=== PATIENT | female | born 1990 | race Caucasian/White ===

== ENCOUNTER 2017-01-05 23:55 | Emergency (ER) | payer BC, OTHER ==
[~2017-01-05] VITALS: Ht 152.4 cm; Wt 48.6 kg
[~2017-01-05 23:55] MED LIST: DROS1TAB24 PO; ZLF/50 PO
[2017-01-06 00:10] VITALS: TEMP 37.3; Ht 152.4 cm; Wt 48.6 kg
[2017-01-06] MEDS ORDERED: HYDROCODONE/ACETAMOPHEN 5/325MG TAB PO STA (01:03)
[2017-01-06] MEDS ORDERED: DOXY100C76 PO (01:14)
[2017-01-06] MEDS ORDERED: NORCO 5/325MG HOME PACK PO ONE (01:15)
[2017-01-06] MEDS ORDERED: DOXYCYCLINE HYCLATE 100 MG CAP PO ONE (01:15)
[2017-01-06 01:37] VITALS: BP 125/74; PULSE 74; O2SAT 99
[2017-01-06] MEDS ORDERED: DSY/50 PO (01:39)
--- NOTE | 2017-01-06 03:25 | EMERGENCY ROOM VISIT NOTE ---
History Report prepared by Magnus: Jamal Bradley Under the Supervision of: Dr. Jossue Saldivar M.D. First contact with patient: 00:29 Chief Complaint: INFECTION Stated Complaint: RED SWOLLEN PAIN,THROBBING,WARM,REDNESS WORSE Nursing Triage Summary: pt states had a pimple on chin and popped it, seen dr for it becoming red and swollen and dr told her if it got worse to come in here, tonight she was sleeping and woke and noticed it popped and was bleeding, pain increased and redness and swelling History of Present Illness The patient is a 26 year old female who presents to the Emergency Room with complaints of a spreading infection on her chin that began three days prior to arrival. The patient states that the area on her chin began as a pimple which she popped as she normally would. After popping the pimple it became red and swollen. Her pain is radiating under her neck and into her right jaw. The patient has visited with another physician prior to this visit who gave her Clindamycin and suggested that if it spread any more to come into the emergency department. The patient has been taking this Clindamycin for two days. She does have a history of cellulitis on her foot. Her boyfriend notes having a orozco with MRSA two years ago. She denies LOC, headache, fevers, chills, diaphoresis, visual changes, neck pain, chest pain, breathing difficulties, nausea, vomiting , abdominal pain, back pain, melena, hematochezia, urinary symptoms, numbness, weakness, lymphadenopathy, rash, or other complaints. 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 A total of ten systems were reviewed and were otherwise negative. Past Medical & Surgical Medical Problems: (1) Breech presentation (2) Non reassuring heart tones. Surgical Problems: (1) section Family History Hypertension Seizures Social History Smoking Status: Current Every Day Smoker Alcohol Use: none Drug Use: none Marital Status: in relationship Housing Status: lives with family Occupation Status: employed Current/Historical Medications Scheduled Doxycycline Monohydrate (Monodox), 100 MG PO BID Sertraline HCl (Sertraline HCl), 50 MG PO DAILY Trazodone HCl (Trazodone HCl), 50 MG PO HS Allergies Coded Allergies: Sulfa Drugs (Unverified Allergy, Mild, HIVES, 01/06/17) Tramadol (Verified Allergy, Unknown, GI SYMPTOMS, 01/06/17) Physical Exam Vital Signs Date Time Temp Pulse Resp B/P Pulse Ox O2 Delivery O2 Flow Rate FiO2 01/06/17 01:37 74 16 125/74 99 01/06/17 00:10 37.3 78 18 126/77 99 Room Air Physical Exam GENERAL: Awake, alert, well-appearing, in no distress HENT: Normocephalic, atraumatic. Oropharynx unremarkable. EYES: Normal conjunctiva. Sclera non-icteric. CHIN: There is swelling and induration of the right side of the chin. NECK: Submandibular nodes on the right side. Supple. No nuchal rigidity. FROM. No JVD. RESPIRATORY: Clear to auscultation. CARDIAC: Regular rate, normal rhythm. Extremities warm and well perfused. Pulses equal. ABDOMEN: Soft, non-distended. No tenderness to palpation. No rebound or guarding. No masses. RECTAL: Deferred. MUSCULOSKELETAL: Chest examination reveals no tenderness. The back is symmetrical on inspection without obvious abnormality. There is no CVA tenderness to palpation. No joint edema. NEURO: Normal sensorium. No sensory or motor deficits noted. SKIN: No rash or jaundice noted. Medical Decision & Procedures Medications Administered Medications (Trade) Dose Ordered Sig/Concepcion Route Start Time Stop Time Status Last Admin Dose Admin Acetaminophen/ Hydrocodone Bitart (Cable 5/325mg Home Pack) 1 homepack UD ONCE PO 01/06/17 01:15 01/06/17 01:16 DC 01/06/17 01:30 1 HOMEPACK Acetaminophen/ Hydrocodone Bitart (Cable 5/325 Tab) 1 tab NOW STAT PO 01/06/17 01:03 01/06/17 01:06 DC 01/06/17 01:30 1 TAB Doxycycline Hyclate (Vibramycin Cap) 200 mg ONE ONCE PO 01/06/17 01:15 01/06/17 01:16 DC 01/06/17 01:30 200 MG ED Course 0043: The patient was evaluated in room C4. A complete history and physical exam was performed. 0103: Ordered Acetaminophen 1 tablet PO. 0115: Ordered Doxycycline 200 mg PO, Acetaminophen 1 homepack PO. 0203: I reevaluated the patient. Discussed results and discharge instructions: She verbalized understanding and agreement. The patient is ready for discharge. Medical Decision Prior records reviewed and summarized as above. Triage Nursing notes reviewed and agree them. Additional history obtained from the significant other. He has had significant issues with MRSA that was not sensitive to clindamycin. The patient's history was concerning for swelling and redness of the skin. Differential diagnosis: Etiologies such as cellulitis, abscess, MRSA infection, dermatitis, drug eruption, as well as others were entertained.. Physical examination: The physical examination was consistent with cellulitis ER treatment provided: The patient had a small pustule noted in the area of erythema. This was somewhat indurated. This seemed to be consistent with a large pimple-like abscess. The area was prepped with alcohol and a 19-gauge needle was used to enter the small abscess like cavity and purulent material was expressed with some gentle pressure. I discussed doing this option versus a formal incision and drainage to minimize scarring. The patient was in agreement. I did inform her that she may need to have a formal I and D if this does not work. A moderate amount of purulent fluid was expressed. The appearance could be consistent with MRSA. Oral doxycycline Oral Cable On reassessment the patient felt better. Diagnostics interpreted by me: Culture obtained and sent This appears to be isolated cellulitis with a very small pimple-like abscess. Given her significant other's issues with MRSA that was resistant to clindamycin I suspect that she is dealing with the same. I will switch her to doxycycline as she is allergic to sulfa. She had started to use Bactroban and will continue this. If she worsens in any way she will be back to the Emergency Room By the evaluation outlined above emergent etiologies such as osteomyelitis necrotizing fasciitis, ludwigs angina, deep space infection as well as others were deemed relatively unlikely. The patient was informed about the findings as listed above. All questions were answered and she was pleased with the treatment. Return instructions were outlined and the patient was discharged in stable condition. Outpatient prescription management: Cable home pack Oral doxycycline Stop the clindamycin Referral: The patient was referred back to her primary care physician for follow-up in 2 to 3 days for a recheck of the current condition. The chart was completed utilizing [employer] voice recognition software. Grammatical errors, random word insertions, pronoun errors, and incomplete sentences are an occasional consequence of this system due to software limitations, ambient noise, and hardware issues. Any formal questions or concerns about the content, text, or information contained within the body of this dictation should be directly addressed to the physician for clarification. Impression Primary Impression: Abscess of chin Scribe Attestation The scribe's documentation has been prepared under my direction and personally reviewed by me in its entirety. I confirm that the note above accurately reflects all work, treatment, procedures, and medical decision making performed by me. Departure Information Dispostion Home / Self-Care Prescriptions Doxycycline Monohydrate (Monodox) 100 Mg Cap 100 MG PO BID, #14 CAP Prov: Jossue Saldivar MD 01/06/17 Referrals No Doctor, Assigned (PCP) Forms HOME CARE DOCUMENTATION FORM, IMPORTANT VISIT INFORMATION, WORK / SCHOOL INSTRUCTIONS Patient Instructions My [facility] Additional Instructions Hydrocodone/acetaminophen 5/325mg: Take 1-2 pills every 6 hours as needed for pain. Avoid additional Acetaminophen/Tylenol, alcohol, operating machinery or dangerous equipment, working on ladders or roofs, DRIVING, or situations where being under the influence may be dangerous. Doxycycline 100mg: Take one pill twice daily for seven days for your infection. Take with food, but avoid dairy. Avoid prolonged sun exposure since this medication makes you temporarily more susceptible to sunburns. All antibiotics can cause diarrhea. If this occurs and you feel worse or it does not resolve in 1-2 days follow up with your doctor or return to the Emergency Department as this could be signs of serious underlying problems. Any medication can cause an allergic reaction, stop the pills immediately and return to the ER for rash, hives, breathing difficulties, or swelling. Ibuprofen(Motrin, Advil) may be used for fever or pain. Use 600mg every six hours as needed. Take with food. Avoid using more than 2400mg in a 24 hour period. Do not use 2400mg per day for more than three consecutive days without physician direction. Prolonged inappropriate use can lead to stomach upset or ulcers. (AND/OR) Acetaminophen(Tylenol) may be used for fever or pain. Use 1000mg every six hours as needed. Avoid using more than 4000mg in a 24 hour period. Warm compresses to the affected area 4 times daily for 15-20 minutes. Rest and drink plenty of fluids. Stop the Clindamycin. Continue other current medications. Return to the ER for severe pain, persistent fevers, spreading redness, or any worsening of your condition. Follow up with your primary physician within 2-3 days for a recheck of the current condition.
--- NOTE | 2017-01-08 12:58 | Pharmacy Progress Note ---
ED Pharmacist Culture FollowUp Date of Service: Jan 08, 2017. Chin abscess culture from 01/06/17 is growing MRSA (also sensitive to tetracyclines and clindamycin). The patient had taken clindamycin x 2 days prior to presentation and felt the abscess/cellulitis was worsening, prompting her presentation to the ER. She was discharged with a Rx for Doxycycline 100mg PO BID x 7 days, and she was using Bactroban oint at the time she presented which she was instructed to continue. Based upon sensitivities, no action is required at this time.
== END 2017-01-06 01:35 | disposition home or self-care (01) ==
LOC: C.EDB 23:57 → C.EDC 01-06 01:35
DX: L02.01 Cutaneous abscess of face (principal); Z86.14 Personal history of Methicillin resistant Staphylococcus aureus infection; F17.210 Nicotine dependence, cigarettes, uncomplicated

== ENCOUNTER 2017-08-13 02:12 | Emergency (ER) | payer BC, OTHER ==
[~2017-08-13] VITALS: Ht 152.4 cm; Wt 51.2 kg
[~2017-08-13 02:12] MED LIST changes: -DROS1TAB24 PO; +DSY/50 PO
[2017-08-13 02:16] VITALS: TEMP 36.8; Ht 152.4 cm; Wt 51.2 kg
[2017-08-13] MEDS ORDERED: TRAMADOL HCL 50 MG HOME PACK PO ONE (02:45)
[2017-08-13] MEDS ORDERED: HYDROCORTISONE HC 2.5% CRM 30GM TUBE EXT ONE (02:45)
[2017-08-13] MEDS ORDERED: LIDOCAINE 4% CREAM 15 GM TUBE EXT ONE (02:45)
[2017-08-13] MEDS ORDERED: HYDRAER4 PR (02:47)
[2017-08-13] MEDS ORDERED: LIDO1CRE TOP (02:47)
[2017-08-13 03:00] VITALS: BP 122/68; PULSE 69; O2SAT 98
--- NOTE | 2017-08-13 06:41 | EMERGENCY ROOM VISIT NOTE ---
History First contact with patient: 02:31 Chief Complaint: RECTAL PAIN Stated Complaint: HEMORRHOIDS Nursing Triage Summary: c/o painful hemmorrhoids History of Present Illness The patient is a 27 year old female who presents to the Emergency Room with complaints of painful hemorrhoids over the past 3-4 days. The patient states that she has had hemorrhoids for some time that began after the of her child. She has not had diarrhea or constipation. She has not had fever or chills. She does not have a history of inflammatory bowel disease. She rates her discomfort an 8/10 that worsens with using the bathroom. Review of Systems More than 10 systems were reviewed and otherwise negative with the exception of history of present illness. Past Medical/Surgical History Medical Problems: (1) Breech presentation (2) Non reassuring heart tones. Surgical Problems: (1) section Family History Hypertension Seizures Social History Smoking Status: Current Every Day Smoker Alcohol Use: none Drug Use: none Marital Status: in relationship Housing Status: lives with family Occupation Status: employed Current/Historical Medications Scheduled Hydrocortisone/Pramoxine (Proctofoam Hc), 1 APPL [place] BID Lidocaine (Anecream), 1 APPLN TOP TID Sertraline HCl (Sertraline HCl), 50 MG PO DAILY Trazodone HCl (Trazodone HCl), 50 MG PO HS Physical Exam Vital Signs Date Time Temp Pulse Resp B/P (MAP) Pulse Ox O2 Delivery O2 Flow Rate FiO2 08/13/17 03:00 69 20 122/68 98 08/13/17 02:16 36.8 76 17 124/83 100 Room Air Physical Exam VITALS: Vitals are noted on the nurse's note and reviewed by myself. Vital signs stable. GENERAL: Well-developed, well-nourished, white female, who is in no acute distress and resting comfortably. Patient is cooperative with the examination. HEART: Regular rate and rhythm without murmurs gallops or rubs. LUNGS: Clear to auscultation bilaterally without wheezes, rales or rhonchi. No retractions or accessory muscle use. RECTAL: Examination was performed in the presence of female nurse fractionating still operator. There is an obvious external hemorrhoid along the right perianal area. This does not appear or friable. It is roughly 1.5 x 1 cm in dimension. ABDOMEN: Positive normal bowel sounds x 4. Soft, nontender, without masses or organomegaly. No guarding or rebound tenderness. Medical Decision & Procedures Medications Administered Medications (Trade) Dose Ordered Sig/Concepcion Route Start Time Stop Time Status Last Admin Dose Admin Lidocaine (AneCream 4%) 1 appln NOW ONCE EXT 08/13/17 02:45 08/13/17 02:46 DC 08/13/17 02:59 1 APPLN Hydrocortisone (Proctozone Hc 2.5% Crm) 1 appln NOW ONCE EXT 08/13/17 02:45 08/13/17 02:46 DC 08/13/17 02:59 1 APPLN ED Course Physical exam and history were performed. Nursing notes, EMR, and Medication List were personally reviewed. Patient appears to have an obvious external hemorrhoid on examination. This appears to be the cause of her discomfort. The patient was quite upfront with a past history of opioid abuse and she prefers to avoid opioids. The patient will be given information to follow with general surgeon for the hemorrhoids. I will provide her Anecream and Proctofoam. She was educated on other conservative measures that may help her symptoms. She was otherwise invited back to the ER with any new, worsening, or concerning symptoms. The chart was completed utilizing [employer] Speech Voice Recognition Software. Grammatical errors, random word insertions, pronoun errors, and incomplete sentences are an occasional consequence of this system due to software limitations, ambient noise, and hardware issues. Any formal questions or concerns about the content, text, or information contained within the body of this dictation should be directly addressed to the provider for clarification. . Medical Decision Differential diagnosis includes, but is not limited to: Hemorrhoid, fissure, ulcer, abscess, and others Blood Pressure Screening Patient's blood pressure: Normal blood pressure Impression Primary Impression: Acute hemorrhoid Departure Information Dispostion Home / Self-Care Condition GOOD Prescriptions Hydrocortisone/Pramoxine (Proctofoam Hc) Aer 1 APPL [place] BID, #10 GM 1 Refill Prov: Jerod Catherine PA-C 08/13/17 Lidocaine (ANECREAM) 4 % Cre 1 APPLN TOP TID for Pain, #1 TUBE 2 Refills Prov: Jerod Catherine PA-C 08/13/17 Referrals Antonio Dodd D.O. Forms HOME CARE DOCUMENTATION FORM, IMPORTANT VISIT INFORMATION Patient Instructions My [facility] Additional Instructions You were seen and evaluated today on an emergency basis only. This is not a substitute for, or an effort to provide, complete comprehensive medical care. It is not possible to recognize and treat all injuries or illnesses in a single emergency department visit. For this reason it is recommended that you followup with general surgeon, Dr Dodd, for ongoing care and evaluation. Apply Anecream three times daily. Apply Procotofoam twice daily. Use vaseling when wiping after bowel movement. Consider using Colace over the counter for softer movements. You are welcome to return to the emergency department anytime with new, worsening, or concerning symptoms.
== END 2017-08-13 03:01 | disposition home or self-care (01) ==
LOC: C.EDB 02:14
DX: K64.4 Residual hemorrhoidal skin tags (principal); F17.210 Nicotine dependence, cigarettes, uncomplicated; Z82.49 Family history of ischemic heart disease and other diseases of the circulatory system; Z82.0 Family history of epilepsy and other diseases of the nervous system; Z79.899 Other long term (current) drug therapy

== ENCOUNTER → 2017-10-31 | Outpatient (CLI) | payer OTHER ==
[~2017-10-31] MED LIST changes: +HYDR1AER23 PR; +LIDO1CRE TOP
== END | disposition home or self-care (01) ==
LOC: C.PAPS 08:56
PROVIDERS: ATTEND Physician Assistant
DX: Z12.4 Encounter for screening for malignant neoplasm of cervix (principal)

== ENCOUNTER 2017-12-15 00:43 | Emergency (ER) | payer OTHER ==
[~2017-12-15] VITALS: Ht 152.4 cm; Wt 51.7 kg
[2017-12-15 00:48] VITALS: TEMP 36.8; Ht 152.4 cm; Wt 51.7 kg
[2017-12-15] MEDS ORDERED: SUMATRIPTAN SUCCINATE 6 MG/0.5 ML VIAL SQ STA (00:57)
[2017-12-15] MEDS ORDERED: HYDR25CA PO (01:17)
[2017-12-15] MEDS ORDERED: SUMA25TA PO (01:17)
[2017-12-15] MEDS ORDERED: HYDR1AER23 PR (01:17)
[2017-12-15] MEDS ORDERED: LIDO1CRE TOP (01:17)
[2017-12-15 01:48] VITALS: BP 123/70; PULSE 63; O2SAT 98
--- NOTE | 2017-12-15 01:50 | EMERGENCY ROOM VISIT NOTE ---
History Report prepared by Magnus: Alexx Connor Under the Supervision of: Dr. Ryan Salmon M.D. First contact with patient: 00:50 Chief Complaint: HEADACHE Stated Complaint: MIGRAINE History of Present Illness The patient is a 27 year old female who presents to the Emergency Room with complaints of a constant headache starting this morning. The patient states that the pain is on the left side, and it is worse with light and sound. She describes the pain as throbbing. The patient states that she has a history of migraines for years, and she gets them when she has her period, and she currently is having her period. She denies any chance of . She denies any fevers, head injuries, and numbness and weakness on one side of her body. The patient states that she did vomit earlier today. She states that she usually takes Imitrex for her migraines which helps. Source of History: patient Onset: this morning Position: head Quality: other (throbbing) Timing: constant Modifying Factors (Worsening): other (light and sound) Associated Symptoms: + vomiting, No fevers, No weakness, No numbness Review of Systems See HPI for pertinent positives & negatives. A total of 10 systems reviewed and were otherwise negative. Past Medical & Surgical Medical Problems: (1) Breech presentation (2) Non reassuring heart tones. Surgical Problems: (1) section Family History Hypertension Seizures Social History Smoking Status: Current Every Day Smoker Alcohol Use: none Drug Use: none Marital Status: in relationship Housing Status: lives with family Occupation Status: employed Current/Historical Medications Scheduled Hydrocortisone/Pramoxine (Proctofoam Hc), 1 APPL [place] BID Sertraline HCl (Sertraline HCl), 75 MG PO DAILY Trazodone HCl (Trazodone HCl), 50 MG PO HS Scheduled PRN Hydroxyzine Pamoate (Vistaril), 25 MG PO TID PRN for PRN Lidocaine (Anecream), 1 APPLN TOP TID PRN for Pain Sumatriptan Succinate (Imitrex), 25 MG PO PRN PRN for Migraine Allergies Coded Allergies: Sulfa Drugs (Verified Allergy, Intermediate, HIVES, 12/15/17) Tramadol (Verified Allergy, Intermediate, GI SYMPTOMS, 12/15/17) Physical Exam Vital Signs Date Time Temp Pulse Resp B/P (MAP) Pulse Ox O2 Delivery O2 Flow Rate FiO2 12/15/17 01:48 63 16 123/70 98 12/15/17 00:48 36.8 82 18 120/74 99 Room Air Physical Exam Constitutional: Vital signs reviewed. Eyes: Pupils are equal round reactive to light. Conjunctiva are noninjected. ENT: Pharynx is clear without erythema or exudate. Mucous membranes are moist. Neck supple without meningeal signs. Respiratory: Clear to auscultation bilaterally. Breath sounds are equal bilaterally. Cardiovascular: Regular rate and rhythm. No rubs or gallops. GI: Soft, nondistended and nontender. Bowel sounds are present. Musculoskeletal: No peripheral edema. No lower extremity tenderness. Integumentary: No cyanosis. Neurological: The patient is awake and alert. Cranial nerves II-XII are intact. Motor is 5 out of 5 all extremities. Sensation is intact to light touch all extremities. Normal speech. No pronator drift. Normal gait. Psychiatric: Normal affect. Medical Decision & Procedures Medications Administered Medications (Trade) Dose Ordered Sig/Concepcion Route Start Time Stop Time Status Last Admin Dose Admin Sumatriptan Succinate (Imitrex Sq Inj) 6 mg NOW STAT SQ 12/15/17 00:57 12/15/17 00:58 DC 12/15/17 01:10 6 MG ED Course 0050: The patient was evaluated in room B8. A complete history and physical exam was performed. 0057: Imitrex 6mg SQ 0121: I reevaluated the patient, and she just got her injections. 0138: I reassessed the patient, and she states that her headache feels better. She is ready for discharge. Medical Decision This is a 27-year-old female presents with a migraine headache. I did perform a limited focused review of portions of the patient's old chart on the electronic medical record. The patient has had no recent pertinent visits to this hospital. I did evaluate the patient as noted above. The patient has presented with a migraine headache. She has a long-standing history of migraines. She ran out of her Imitrex and so presents here. She denies any fever. She has no focal neurologic deficits. I have no reason to suspect an acute intracranial hemorrhage or meningitis. She states her headache feels like her prior migraines. I did treat her with Imitrex 6 mg subcu. I did reassess the patient. She is feeling better. She was discharged and advised follow-up with her doctor. Medication Reconcilliation Current Medication List: was personally reviewed by me Blood Pressure Screening Patient's blood pressure: Normal blood pressure Impression Primary Impression: Migraine Scribe Attestation The scribe's documentation has been prepared under my direct and personally reviewed by me in its entirety. I confirm that the note above accurately reflects all work, treatment, procedures, and medical decision making performed by me. Departure Information Dispostion Home / Self-Care Referrals No Doctor, Assigned (PCP) Forms HOME CARE DOCUMENTATION FORM, IMPORTANT VISIT INFORMATION, Work Instructions Patient Instructions Headaches Migraine and Tension, My [facility] Additional Instructions You have been examined and treated today on an emergency basis only. This is not a substitute for, or an effort to provide, complete comprehensive medical care. It is impossible to recognize and treat all injuries or illnesses in a single emergency department visit. It is therefore important that you follow up closely with your physician. Call as soon as possible for an appointment. Return for worsening symptoms or if you develop fever, numbness or weakness on one side of your body, difficulties with your speech or walking, or any other concerning symptoms. Problem Qualifiers Primary Impression: Migraine Migraine type: unspecified Status migrainosus presence: without status migrainosus Intractability: not intractable Qualified Codes: G43.909 - Migraine, unspecified, not intractable, without status migrainosus
== END 2017-12-15 01:49 | disposition home or self-care (01) ==
LOC: C.EDB 00:44
DX: G43.909 Migraine, unspecified, not intractable, without status migrainosus (principal); Z82.49 Family history of ischemic heart disease and other diseases of the circulatory system; F17.210 Nicotine dependence, cigarettes, uncomplicated; Z79.899 Other long term (current) drug therapy; Z88.2 Allergy status to sulfonamides; Z88.5 Allergy status to narcotic agent

== ENCOUNTER 2021-07-10 14:52 | Inpatient (IN) ==
[2021-07-10] MEDS ORDERED: ONDANSETRON INJ 2 MG/ML 2 ML VIAL IV STA (16:38)
[2021-07-10] MEDS ORDERED: SODIUM CHLORIDE 0.9% 1000ML 1,000 ML IV STA (16:38)
--- NOTE | 2021-07-10 16:51 | Emergency Department Note ---
Impression & Plan Cholelithiasis, Abdominal pain, Abnormal LFTs ED Provider Note NAME: GAMA DUDLEY AGE: 31 SEX: F : 1990 ARRIVES VIA: Walk-In INFORMANT: Patient, ED PROVIDER(S): Gera Alejandre DO CHIEF COMPLAINT: Abdominal pain HPI: The patient is a 31-year-old female who presented to the emergency department for an evaluation of abdominal pain. The patient has had right upper quadrant abdominal pain over the course of the last few months to year. The patient has had intermittent episodes of pain sometimes worsening with food. T he patient was seen in outside ED yesterday and had a work-up which included ultrasound that showed gallstones. She had an MRCP today but does not know the results. The patient was at an ER and was going to be transferred to a bigger center for surgery however she did not wish to go to that center and signed out AMA because the wait time to be transferred was very long. She denies having any chest pain. She denies having any fever. She denies have any back pain or lower extremity pain at this time. She does still complain of right upper quadrant abdominal pain. The patient has not been seen by her primary care physician recently. ROS: See above HPI for pertinent positives & negatives. A total of 10 systems reviewed and were otherwise negative. PAST MEDICAL HISTORY: See Below PAST SURGICAL HISTORY: See Below FAMILY HISTORY: See Below SOCIAL HISTORY: See Below HOME MEDICATIONS: See Below ALLERGIES: See Below VITALS: See Below PHYSICAL EXAMINATION: GENERAL: Patient is awake alert in no acute distress patient is resting comfortably and showing no signs of anxiety EYES: The conjunctivae are clear. The pupils are round and reactive. EARS, NOSE, MOUTH AND THROAT: The nose is without any evidence of any deformity. Mucous membranes are moist. Tongue is midline. NECK: The neck is nontender and supple. RESPIRATORY: Normal respiratory effort is noted there is no evidence of wheezing rhonchi or rales CARDIOVASCULAR: Regular rate and rhythm noted there no murmurs rubs or gallops normal S1 normal S2. GASTROINTESTINAL: The abdomen is soft and nondistended. There is right upper quadrant tenderness to palpation. There is no guarding rigidity. BACK: No midline tenderness or or step-off noted range of motion in flexion extension as well as rotation no signs of muscle spasm noted MUSCULOSKELETAL/EXTREMITIES: There is no evidence of gross deformity full range of motion is noted in the hips and shoulders. SKIN: There is no obvious evidence of any rash. There are no petechiae, pallor or cyanosis noted. NEUROLOGIC: Patient is awake alert and oriented x3 MEDICAL DECISION MAKING: The is a 31-year-old female who presented to the emergency department for an evaluation of right upper quadrant abdominal pain. The patient has had similar symptoms in the past for many months. She was seen at an outside facility yesterday and had radiographic and laboratory studies including an MRCP. The patient was found to have elevation in her LFTs. She was felt to be a possible surgical candidate but signed out AMA. She returns to our facility today because of ongoing symptoms. Most of the laboratory and radiographic studies were repeated and her MRCP from the outside facility was also reviewed. I discu ssed the patient's laboratory and radiographic studies with her. I also discussed her case with the on-call general surgeon as well as the on-call [facility] hospitalist. They have agreed to evaluate the patient in the emergency department for further management and disposition. The patient may require further work-up or possible an evaluation by gastroenterology. Ultimately she may require a cholecystectomy. She was treated with IV fluids and IV antibiotics emergency department. She was feeling much better on subsequent reevaluation. Triage Nursing notes reviewed. Prior medical records reviewed Vital Signs: reviewed and remarkable for no significant abnormalities Differential diagnosis: Etiologies such as appendicitis, diverticulitis, obstruction, inflammatory bowel disease, renal colic, PUD, biliary pathology, pancreatitis, mesenteric ischemia, aortic pathology, infections, genitourinary, UTI, perforated viscus, as well as others were entertained. ER treatment provided: See below Diagnostics interpreted by me: ECG: none Cardiac Monitoring: An order was placed for continuous cardiac monitoring. The monitor shows a rate of 88 bpm with sinus rhythm. Laboratory studies: As stated above and show below. Imaging studies: See below Consultation(s): I discussed this case with Dr. Groves who is on-call for general surgery. I discussed this case with Dr. Osman who is on-call for the [facility] hospitalist group. Past Med/Surg History Medical History Anxiety Common migraine Depression Drug addiction External hemorrhoids Opioid abuse, in remission Sleep disturbances Surgical History S/P tonsillectomy Family History Father Hypertension Sister Hypertension Denies family history of Pancreatic cancer Ovarian cancer Prostate cancer Breast cancer Colorectal cancer Uterine cancer Social History Smoking Status: Current every day smoker Hx Alcohol Use: No Hx Substance Use: Yes Communication Ability: Effective Visual Impairment: No Limitations Hearing Ability: Normal [employer] Required: No marital status: Single Current Living Situation: Parent Feels Safe at Home: Yes Childhood Exposure to Second-Hand Smoke: No Seatbelt Use: always Allergies Allergies Allergy/AdvReac Type Severity Reaction Status Date / Time Sulfa (Sulfonamide Allergy Intermediate HIVES Verified 07/10/21 18:42 Antibiotics) tramadol Allergy Intermediate GI SYMPTOMS Verified 07/10/21 18:42 Home Meds Home Medications Medication Instructions Recorded Confirmed buspirone 10 mg tablet 10 mg PO BID 08/12/19 07/10/21 sertraline 100 mg tablet 200 mg PO QAM tab 08/12/19 07/10/21 amitriptyline 100 mg tablet 200 mg PO HS 07/10/21 07/10/21 amitriptyline 50 mg tablet 50 mg PO HS 07/10/21 07/10/21 bupropion HCl 100 mg tablet,12 hr 100 mg PO QAM 07/10/21 07/10/21 sustained-release (Wellbutrin SR) omeprazole 40 mg capsule,delayed 40 mg PO QAM 07/10/21 07/10/21 release ropinirole 1 mg tablet 1 mg PO HS 07/10/21 07/10/21 Previous Rx's Medication Instructions Recorded buprenorphine 8 mg-naloxone 2 mg 1 ea BUCCAL BID #1 ea 03/26/19 sublingual film (Suboxone) amitriptyline 10 mg tablet 10 mg PO BID #60 tab 06/01/19 hydroxyzine HCl 50 mg tablet 50 mg PO Q8H PRN #90 tab 06/01/19 drospirenone 3 mg-ethinyl 1 tab PO DAILY #112 tab 10/25/20 estradiol 0.02 mg tablet (Britta (28)) Results & Data (ED) Vital Signs Vital Signs - 24 hr 07/10/21 15:08 07/10/21 17:03 07/10/21 17:30 Temperature 36.3 C L Temperature Source Temporal Artery Scan Pulse Rate 96 H 88 88 Pulse Rate from SpO2 Sensor 89 88 Respiratory Rate 20 15 17 Respiratory Effort / Characteristics Non-Labored Respiratory Depth Normal Respiratory Pattern Regular Blood Pressure 136/76 139/86 118/80 Blood Pressure Mean 96 103 92 Blood Pressure Position Sitting Pulse Oximetry 100 100 100 Oxygen Delivery Method Room Air Sepsis Recent Fever Within 48 Hours No Sepsis New/Unexplained Change in Mental Status No Sepsis Action Taken by Nursing No Action Required 07/10/21 18:30 07/10/21 19:00 07/10/21 19:30 Temperature Temperature Source Pulse Rate 86 Pulse Rate from SpO2 Sensor 86 Respiratory Rate 18 Respiratory Effort / Characteristics Respiratory Depth Respiratory Pattern Blood Pressure 126/86 124/85 127/86 Blood Pressure Mean 99 98 99 Blood Pressure Position Pulse Oximetry 100 Oxygen Delivery Method Sepsis Recent Fever Within 48 Hours Sepsis New/Unexplained Change in Mental Status Sepsis Action Taken by Nursing 07/10/21 20:00 07/10/21 20:30 07/10/21 21:00 Temperature Temperature Source Pulse Rate 98 H 89 88 Pulse Rate from SpO2 Sensor 97 H 89 89 Respiratory Rate 23 25 H 17 Respiratory Effort / Characteristics Respiratory Depth Respiratory Pattern Blood Pressure 132/94 133/89 134/89 Blood Pressure Mean 106 103 104 Blood Pressure Position Pulse Oximetry 97 100 100 Oxygen Delivery Method Sepsis Recent Fever Within 48 Hours Sepsis New/Unexplained Change in Mental Status Sepsis Action Taken by [place] Medications Current Medication List: was personally reviewed by me Laboratory Data Attestation: I reviewed the patient's lab results. Result diagrams: 07/10/21 17:06 07/10/21 17:06 Lab Results 07/10/21 07/10/21 07/10/21 Range/Units 17:06 17:06 17:06 WBC 5.15 (4.8-10.8) K/uL RBC 4.33 (4.2-5.4) M/uL Hgb 12.1 (12.0-16.0) g/dL Hct 35.9 L (37-47) % MCV 82.9 (80-100) fL MCH 27.9 (25-34) pg MCHC 33.7 (32-36) g/dL RDW Std Deviation 40.4 (36.4-46.3) fL RDW Coeff of Kinza 13.4 (11.5-14.5) % Plt Count 298 (130-400) K/uL MPV 11.2 H (7.4-10.4) fL Immature Gran % (Auto) 0.0 % Neut % (Auto) 48.7 % Lymph % (Auto) 39.8 % [place] % (Auto) 6.8 % Eos % (Auto) 4.1 % Baso % (Auto) 0.6 % Neut # (Auto) 2.51 (1.4-6.5) K/uL Lymph # (Auto) 2.05 (1.2-3.4) K/uL [place] # (Auto) 0.35 (0.11-0.59) K/uL Eos # (Auto) 0.21 (0-0.5) K/uL Baso # (Auto) 0.03 (0-0.2) K/uL Immature Gran # (Auto) 0.00 (0.00-0.02) K/uL Sodium 139 (136-145) mmol/L Potassium 3.4 L (3.5-5.1) mmol/L Chloride 108 H (98-107) mmol/L Carbon Dioxide 24 (21-32) mmol/L Anion Gap 7.0 (3-11) BUN 6 L (7-18) mg/dl Creatinine 0.76 (0.6-1.2) mg/dl Est Cr Clr Drug Dosing 98.7 ml/min Est GFR ( Amer) 122.0 ml/min Est GFR (Non-Af Amer) 105.3 ml/min BUN/Creatinine Ratio 7.3 L (10-20) Glucose 93 (70-99) mg/dl Calcium 8.9 (8.5-10.1) mg/dl Total Bilirubin 2.1 H (0.2-1) mg/dl AST 365 H (15-37) U/L ALT 333 H (12-78) U/L Alkaline Phosphatase 297 H (45-117) U/L Total Protein 7.7 (6.4-8.2) gm/dl Albumin 3.4 (3.4-5.0) gm/dl Globulin 4.3 H (2.5-4.0) gm/dl Albumin/Globulin Ratio 0.8 L (0.9-2) Lipase 68 L (73-393) U/L HCG, Qual Negative (Negative) Urine Color Urine Appearance (Clear) Urine pH (4.5-7.5) Ur Specific [place] (1.000-1.030) Urine Protein (Negative) Urine Glucose (UA) (Negative) Urine Ketones (Negative) Urine Blood (Negative) Urine Nitrite (Negative) Urine Bilirubin (Negative) Urine Urobilinogen (Negative) Ur Leukocyte Esterase (Negative) Urine WBC (Auto) (0-5) /hpf Urine RBC (Auto) (0-4) /hpf U Hyaline Cast (Auto) (0-5) /lpf U Epithel Cells (Auto) (0-5) /lpf Urine Bacteria (Auto) (Negative) Urine Yeast COVID-19 Eval Order SARS-CoV-2 (PCR) (Negative) 07/10/21 07/10/21 07/10/21 Range/Units 17:06 19:34 19:34 WBC (4.8-10.8) K/uL RBC (4.2-5.4) M/uL Hgb (12.0-16.0) g/dL Hct (37-47) % MCV (80-100) fL MCH (25-34) pg MCHC (32-36) g/dL RDW Std Deviation (36.4-46.3) fL RDW Coeff of Kinza (11.5-14.5) % Plt Count (130-400) K/uL MPV (7.4-10.4) fL Immature Gran % (Auto) % Neut % (Auto) % Lymph % (Auto) % [place] % (Auto) % Eos % (Auto) % Baso % (Auto) % Neut # (Auto) (1.4-6.5) K/uL Lymph # (Auto) (1.2-3.4) K/uL [place] # (Auto) (0.11-0.59) K/uL Eos # (Auto) (0-0.5) K/uL Baso # (Auto) (0-0.2) K/uL Immature Gran # (Auto) (0.00-0.02) K/uL Sodium (136-145) mmol/L Potassium (3.5-5.1) mmol/L Chloride (98-107) mmol/L Carbon Dioxide (21-32) mmol/L Anion Gap (3-11) BUN (7-18) mg/dl Creatinine (0.6-1.2) mg/dl Est Cr Clr Drug Dosing ml/min Est GFR ( Amer) ml/min Est GFR (Non-Af Amer) ml/min BUN/Creatinine Ratio (10-20) Glucose (70-99) mg/dl Calcium (8.5-10.1) mg/dl Total Bilirubin (0.2-1) mg/dl AST (15-37) U/L ALT (12-78) U/L Alkaline Phosphatase (45-117) U/L Total Protein (6.4-8.2) gm/dl Albumin (3.4-5.0) gm/dl Globulin (2.5-4.0) gm/dl Albumin/Globulin Ratio (0.9-2) Lipase (73-393) U/L HCG, Qual (Negative) Urine Color Dark Yellow Urine Appearance Cloudy A (Clear) Urine pH 6.5 (4.5-7.5) Ur Specific [place] 1.012 (1.000-1.030) Urine Protein Negative (Negative) Urine Glucose (UA) Negative (Negative) Urine Ketones Negative (Negative) Urine Blood Negative (Negative) Urine Nitrite Positive A (Negative) Urine Bilirubin 2+ H (Negative) Urine Urobilinogen Positive H (Negative) Ur Leukocyte Esterase Trace H (Negative) Urine WBC (Auto) 10-30 H (0-5) /hpf Urine RBC (Auto) 0-4 (0-4) /hpf U Hyaline Cast (Auto) 0 (0-5) /lpf U Epithel Cells (Auto) >30 H (0-5) /lpf Urine Bacteria (Auto) 1+ H (Negative) Urine Yeast Not Reportable COVID-19 Eval Order Covid19 at [facility] SARS-CoV-2 (PCR) NEGATIVE (Negative) Administered Medications Discontinued Medications Sodium Chloride (Nss 1000ml) 1,000 mls @ 999 mls/hr IV .[id number] STA Stop: 07/10/21 17:38 Last Infusion: 07/10/21 18:05 Dose: 999 mls/hr Documented by: [id number] Admin: 07/10/21 17:04 Dose: 999 mls/hr Documented by: [id number] Piperacillin Sod/Tazobactam Sod (Zosyn) 4.5 gm in 120 mls @ 240 mls/hr IV NOW ONE Stop: 07/10/21 20:01 Last Infusion: 07/10/21 20:30 Dose: 240 mls/hr Documented by: [id number] Admin: 07/10/21 20:00 Dose: 240 mls/hr Documented by: [id number] Ondansetron HCl (Ondansetron Inj 2 Mg/Ml 2 Ml Vial) 4 mg IV NOW STA Stop: 07/10/21 16:39 Last Admin: 07/10/21 17:04 Dose: 4 mg Documented by: [id number] Imaging Data Radiologist's Impression: Gallbladder Ultrasound 07/10/21 16:38 US gallbladder CLINICAL HISTORY: Right upper quadrant abdominal pain. COMPARISON STUDY: KUB performed earlier today. FINDINGS: The liver is sonographically normal. There is no biliary ductal dilatation. The common bile duct measures 3 mm in caliber. There are numerous gallstones within the gallbladder. There is no gallbladder wall thickening. No sonographic Simpson sign was elicited. There is no pericholecystic fluid. Gallbladder is mildly distended. Pancreatic body is normal. Head and tail are partially obscured. There is no right hydronephrosis. IMPRESSION: 1. Cholelithiasis. No sonographic evidence of acute cholecystitis. 2. No biliary ductal dilatation. ACT 112: Negative or not required by law. Electronically signed by: Carlos Dawn M.D. 07/10/2021 6:26 PM KUB X-Ray 07/10/21 16:38 KUB CLINICAL HISTORY: Right upper quadrant pain. COMPARISON STUDY: None. FINDINGS: The bowel gas pattern is unremarkable. No calcifications are identified. Amount of stool is within normal limits. Although sensitivity is diminished on this supine exam, there is no evidence for free air. IMPRESSION: No evidence for a bowel obstruction. ACT 112: Negative or not required by law. Electronically signed by: Carlos Dawn M.D. 07/10/2021 4:56 PM Chest X-Ray 07/10/21 16:39 XR chest 1V portable CLINICAL HISTORY: Right upper quadrant abdominal pain. COMPARISON STUDY: Chest radiograph March 05, 2016. FINDINGS: Lung volumes are normal. Lungs are clear. There is no pneumothorax or pleural effusion. Cardiac size is normal. Mediastinal contours are normal. There is no evidence for pulmonary edema. IMPRESSION: No acute cardiopulmonary findings. ACT 112: Negative or not required by law. Electronically signed by: Carlos Dawn M.D. 07/10/2021 4:55 PM Discharge Plan Visit Data Chief Complaint: Abdominal Pain Stated Complaint: ABDOMINAL PAIN/VOMITING ED Provider: Gera Alejandre Discharge Problem: Cholelithiasis, Abdominal pain, Abnormal LFTs Patient Disposition: Being Evaluated by Hospitalist Condition: Good Forms Stand Alone Forms: [facility] [employer] Prescriptions Prescriptions: No Action buprenorphine-naloxone [Suboxone] 8-2 mg film 1 ea BUCCAL BID Qty: 1 RF: 0 amitriptyline 10 mg tablet 10 mg PO BID Qty: 60 RF: 2 hydroxyzine HCl 50 mg tablet 50 mg PO Q8H PRN (Reason: anxiety) Qty: 90 RF: 2 drospirenone-ethinyl estradiol [Britta (28)] 3-0.02 mg tablet 1 tab PO DAILY Qty: 112 RF: 3 buspirone 10 mg tablet 10 mg PO BID RF: 0 sertraline 100 mg tablet 200 mg PO QAM RF: 0 ropinirole 1 mg tablet 1 mg PO HS RF: 0 omeprazole 40 mg capsule,delayed release(DR/EC) 40 mg PO QAM RF: 0 amitriptyline 50 mg tablet 50 mg PO HS RF: 0 bupropion HCl [Wellbutrin SR] 100 mg tablet sustained-release 12 hr 100 mg PO QAM RF: 0 amitriptyline 100 mg tablet 200 mg PO HS RF: 0 Referrals Referrals: PCP,NO [Primary Care Provider] -
--- NOTE | 2021-07-10 16:56 | XRay Report ---
XR chest 1V portable CLINICAL HISTORY: Right upper quadrant abdominal pain. COMPARISON STUDY: Chest radiograph March 05, 2016. FINDINGS: Lung volumes are normal. Lungs are clear. There is no pneumothorax or pleural effusion. Car diac size is normal. Mediastinal contours are normal. There is no evidence for pulmonary edema. IMPRESSION: No acute cardiopulmonary findings. ACT 112: Negative or not required by law. Electronically signed by: Carlos Dawn M.D. 07/10/2021 4:55 PM
--- NOTE | 2021-07-10 16:57 | XRay Report ---
KUB CLINICAL HISTORY: Right upper quadrant pain. COMPARISON STUDY: None. FINDINGS: The bowel gas pattern is unremarkable. No calcifications are identified. Amount of stool is within normal limits. Although sensitivity is diminished on this supine exam, there is no evidence f or free air. IMPRESSION: No evidence for a bowel obstruction. ACT 112: Negative or not required by law. Electronically signed by: Carlos Dawn M.D. 07/10/2021 4:56 PM
[2021-07-10 17:17] LABS: Basophils # (auto) 0.03 K/uL (0-0.2); Basophils % (auto) 0.6 %; Eosinophils # (auto) 0.21 K/uL (0-0.5); Eosinophils % (auto) 4.1 %; Hematocrit (blood only) 35.9 % (37-47); Hemoglobin 12.1 g/dL (12.0-16.0); Lymphocytes # (auto) 2.05 K/uL (1.2-3.4); Lymphocytes % (auto) 39.8 %; Mean Corpuscular Hemoglobin 27.9 pg (25-34); Mean Corpuscular Hgb Conc 33.7 g/dL (32-36); Mean Corpuscular Volume 82.9 fL (80-100); Mean Platelet Volume 11.2 fL (7.4-10.4); Monocytes # (auto) 0.35 K/uL (0.11-0.59); Monocytes % (auto) 6.8 %; Neutrophils # (auto) 2.51 K/uL (1.4-6.5); Neutrophils % (auto) 48.7 %; Platelet Count 298 K/uL (130-400); RDW Coefficient of Variation 13.4 % (11.5-14.5); RDW Standard Deviation 40.4 fL (36.4-46.3); Red Blood Count 4.33 M/uL (4.2-5.4); White Blood Count 5.15 K/uL (4.8-10.8)
[2021-07-10 17:21] LABS: Appearance Urine Cloudy (Clear); Bacteria Urine Automated 1+ (Negative); Blood Urine Negative (Negative); Color Urine Dark Yellow; Epithelial Cell Urine Auto >30 /lpf (0-5); Glucose Urine UA Negative (Negative); Ketones Urine Negative (Negative); Leukocyte Esterase Urine Trace (Negative); Nitrite Urine Positive (Negative); Protein Urine Negative (Negative); Specific Gravity Urine 1.012 (1.000-1.030); Urobilinogen Urine Positive (Negative); pH Urine 6.5 (4.5-7.5)
[2021-07-10 17:24] LABS: Bilirubin Urine 2+ (Negative)
[2021-07-10 17:38] LABS: Cast Urine Automated 0 /lpf (0-5); RBC Urine Automated 0-4 /hpf (0-4)
[2021-07-10 17:39] LABS: Pregnancy Test, Serum Negative (Negative)
[2021-07-10 17:40] LABS: Albumin Level 3.4 gm/dl (3.4-5.0); BUN Creatinine Ratio 7.3 (10-20); Calcium 8.9 mg/dl (8.5-10.1); Creatinine Clr Calc Pharmacy 98.7 ml/min; Est GFR (Non-African American) 105.3 ml/min; Potassium 3.4 mmol/L (3.5-5.1)
[2021-07-10 17:42] LABS: Albumin Globulin Ratio 0.8 (0.9-2); Bilirubin,Total 2.1 mg/dl (0.2-1); Globulin 4.3 gm/dl (2.5-4.0); Total Protein 7.7 gm/dl (6.4-8.2)
--- NOTE | 2021-07-10 18:27 | Ultrasound Report ---
US gallbladder CLINICAL HISTORY: Right upper quadrant abdominal pain. COMPARISON STUDY: KUB performed earlier today. FINDINGS: The liver is sonographically normal. There is no biliary ductal dilatation. The common bile duct measures 3 mm in caliber. There are numerous gallstones within the gallbladder. There is no gal lbladder wall thickening. No sonographic Simpson sign was elicited. There is no pericholecystic fluid. Gallbladder is mildly distended. Pancreatic body is normal. Head and tail are partially obscured. Th ere is no right hydronephrosis. IMPRESSION: 1. Cholelithiasis. No sonographic evidence of acute cholecystitis. 2. No biliary ductal dilatation. ACT 112: Negative or not required by law. Electronically signed by: Carlos Dawn M.D. 07/10/2021 6:26 PM
[2021-07-10] MEDS ORDERED: PIPERACILL/TAZOBAC CONSULT ACTIVE PRN ×2 (19:32→22:13)
[2021-07-10] MEDS ORDERED: PIPERACILLIN/TAZOBACTAM 4.5 GM/120 ML BAG IV ONE (19:32)
--- NOTE | 2021-07-10 20:29 | History & Physical Report ---
Date of Service July 10, 2021 Assessment & Plan (1) Abdominal pain: Plan: Controlled with Tylenol and Toradol at present - states pain controlled at this time - Continue tylenol- can add in other agents if needed - Likely related to her cholelithiasis (2) Cholelithiasis: Plan: As per HPI-reports from [facility] on the chart - GI consult placed - GS consulted by EMD- continue - Zosyn - LR 90ml/hr overnight (3) Depression: Plan: Continue Amitriptyline, Buspirone, Bupropion, and sertraline (4) Anxiety: Plan: As above (5) History of prescription drug abuse: Plan: Previous abuse in [id number] - remains on Suboxone (6) Abnormal urinalysis: Plan: (+) LE, (+) nitrite, EPI>30, bacteria 1+- asymptomatic - will be on Zosyn for GI coverage - can resend at discharge if warranted/or symptomatic History of Present Illness Primary Care Provider: NO PCP 31 YOF with past medical history of: Anxiety, opioid/Benzodiazepine abuse- on Suboxone, GERD, migraine, control, smoker. Patient with 2 day history of abdominal pain. The pain is located on her right upper quadrant, acute sharp stabbing in nature, associated with nausea without vomiting and preceded by diarrhea. Pain and nausea got worse this morning as she tried to eat a muffin. Patient went to [facility] for evaluation where she had some labs done, which was concerning for acute cholelithiasis. She had an ultrasound performed- with cholelithiasis noted, followed by MRI/MRCP. The MRI and MRCP interpreted as distended gallbladder with CBD measuring 4-6mm, and without evidence of choledocholithiasis or ductal dilation. Noted cholelithiasis without MRI evidence for an acute inflammatory process. Patient was to be transferred to [facility] and left AMA to come here for evaluation. In the EMD the patient had routine labs to include lipase and repeated ultrasound, interpreted as Cholelithiasis. No sonographic evidence of acute cholecystitis. Her CMP revealed elevated LFTs, ALKpo4,Bili 2.1, and lipase of 68. General Surgery was consulted by the EMD provider who recommended NPO, antibiotics, admission to the hospital via the hospital medicine service and GI consult. Patient will be kept NPO except for medications, placed on Zosyn IV, LR overnight x1 liter. Patient COVID test on admission is: NEGATIVE Allergies Allergy/AdvReac Type Severity Reaction Status Date / Time Sulfa (Sulfonamide Allergy Intermediate HIVES Verified 07/10/21 18:42 Antibiotics) tramadol Allergy Intermediate GI SYMPTOMS Verified 07/10/21 18:42 Home Medications Medication Instructions Recorded Confirmed Type buprenorphine 8 mg-naloxone 2 mg 1 ea BUCCAL BID #1 ea 03/26/19 07/10/21 Rx sublingual film (Suboxone) amitriptyline 10 mg tablet 10 mg PO BID #60 tab 06/01/19 07/10/21 Rx hydroxyzine HCl 50 mg tablet 50 mg PO Q8H PRN #90 tab 06/01/19 07/10/21 Rx buspirone 10 mg tablet 10 mg PO BID 08/12/19 07/10/21 History sertraline 100 mg tablet 200 mg PO QAM tab 08/12/19 07/10/21 History drospirenone 3 mg-ethinyl 1 tab PO DAILY #112 tab 10/25/20 07/10/21 Rx estradiol 0.02 mg tablet (Britta (28)) amitriptyline 100 mg tablet 200 mg PO HS 07/10/21 07/10/21 History amitriptyline 50 mg tablet 50 mg PO HS 07/10/21 07/10/21 History bupropion HCl 100 mg tablet,12 hr 100 mg PO QAM 07/10/21 07/10/21 History sustained-release (Wellbutrin SR) omeprazole 40 mg capsule,delayed 40 mg PO QAM 07/10/21 07/10/21 History release ropinirole 1 mg tablet 1 mg PO HS 07/10/21 07/10/21 History Past Med/Surg History Medical History Anxiety Common migraine Depression Drug addiction External hemorrhoids Opioid abuse, in remission Sleep disturbances Surgical History S/P tonsillectomy Family History Father Hypertension Sister Hypertension Denies family history of Pancreatic cancer Ovarian cancer Prostate cancer Breast cancer Colorectal cancer Uterine cancer Social History (Reviewed 09/21/21 @ 23:40 by GERTRUDE Levi Smoking Status: Current every day smoker Cigarettes Per Day: 1/2 pack; Do You Dip or Chew Tobacco: No; Tobacco Cessation Education Requested by Patient: No Hx Alcohol Use: No Hx Substance Use: Yes Substance Use Type Other:: Medical card Preferred Language: Belgian Communication Ability: Effective Visual Impairment: No Limitations Hearing Ability: Normal Performing Arts Technicians Required: No Beliefs That Will Affect Care: None marital status: Single Current Living Situation: Family Other Information That Helps Us Care for You: No Feels Safe at Home: Yes Safety Concerns: Feels Safe At This Time Childhood Exposure to Second-Hand Smoke: No Seatbelt Use: always Assistive Devices: None Review of Systems Review of Systems: REVIEW OF SYSTEMS: Constitutional: No fever, sweats or chills Eyes: No diplopia, no worsening or blurred vision ENT: normal hearing, no trouble swallowing Respiratory: No cough, sputum, dyspnea at rest or on exertion Cardiovascular: No chest pain, tightness or palpitations Abdomen: (+) pain, nausea, vomiting, diarrhea- earlier today but resolved, constipation at baseline Musculoskeletal: No joint pain, calf pain, swelling Neurologic: No weakness, numbness/tingling, or balance problems Psychiatric: (+) anxiety or depression Skin: No rash or itch Physical Exam Physical Exam: PHYSICAL EXAM: General: awake, alert, no apparent distress Head: Normocephalic, atraumatic ENT: PERRL, EOMI, no pharyngeal exudate, mucous membranes moist Neuro: AAO x 3, speech clear and appropriate, strength intact bilaterally 5/5, sensation intact and equal all extremities and dermatomes, no pronator drift Chest: equal rise and fall of the chest, no accessory muscle use, no heaves or thrills, Clear to auscultation, on room air, Cardiac: Regular rate and rhythm, telemetry reviewed, skin warm dry, cap refill <3 seconds, peripheral pulses +2 no JVD, no murmur, no edema GI: NABS x 4 quadrants, soft, tender to palpation RUQ, no rebound, guarding or tenderness : Spontaneously voiding, no pain, no CVA tenderness, Extremities: Normal inspection, no peripheral edema or erythema, calfs nontender to palpation Psych: Normal mood and affect Skin: no rash or erythema Results & Data Results & Data ([facility]) Vital Signs (Past 12 Hours) Vital Signs Temp Pulse Resp BP Pulse Ox 07/10/21 15:08 36.3 C L 96 H 20 136/76 100 Laboratory Results Abnormal lab results 07/10/21 07/10/21 07/10/21 Range/Units 17:06 17:06 17:06 Hct 35.9 L (37-47) % MPV 11.2 H (7.4-10.4) fL Potassium 3.4 L (3.5-5.1) mmol/L Chloride 108 H (98-107) mmol/L BUN 6 L (7-18) mg/dl BUN/Creatinine Ratio 7.3 L (10-20) Total Bilirubin 2.1 H (0.2-1) mg/dl AST 365 H (15-37) U/L ALT 333 H (12-78) U/L Alkaline Phosphatase 297 H (45-117) U/L Globulin 4.3 H (2.5-4.0) gm/dl Albumin/Globulin Ratio 0.8 L (0.9-2) Lipase 68 L (73-393) U/L Urine Appearance Cloudy A (Clear) Urine Nitrite Positive A (Negative) Urine Bilirubin 2+ H (Negative) Urine Urobilinogen Positive H (Negative) Ur Leukocyte Esterase Trace H (Negative) Urine WBC (Auto) 10-30 H (0-5) /hpf U Epithel Cells (Auto) >30 H (0-5) /lpf Urine Bacteria (Auto) 1+ H (Negative) Diagnostic Findings Gallbladder Ultrasound 07/10/21 16:38 US gallbladder CLINICAL HISTORY: Right upper quadrant abdominal pain. COMPARISON STUDY: KUB performed earlier today. FINDINGS: The liver is sonographically normal. There is no biliary ductal dilata tion. The common bile duct measures 3 mm in caliber. There are numerous gallstones within the gallbladder. There is no gallbladder wall thickening. No sonographic Simpson sign was elicited. There is no pericholecystic fluid. Gallbladder is mildly distended. Pancreatic body is normal. Head and tail are partially obscured. There is no right hydronephrosis. IMPRESSION: 1. Cholelithiasis. No sonographic evidence of acute cholecystitis. 2. No biliary ductal dilatation. ACT 112: Negative or not required by law. Electronically signed by: Carlos Dawn M.D. 07/10/2021 6:26 PM KUB X-Ray 07/10/21 16:38 KUB CLINICAL HISTORY: Right upper quadrant pain. COMPARISON STUDY: None. FINDINGS: The bowel gas pattern is unremarkable. No calcifications are identified. Amount of stool is within normal limits. Although sensitivity is diminished on this supine exam, there is no evidence for free air. IMPRESSION: No evidence for a bowel obstruction. ACT 112: Negative or not required by law. Electronically signed by: Carlos Dawn M.D. 07/10/2021 4:56 PM Chest X-Ray 07/10/21 16:39 XR chest 1V portable CLINICAL HISTORY: Right upper quadrant abdominal pain. COMPARISON STUDY: Chest radiograph March 05, 2016. FINDINGS: Lung volumes are normal. Lungs are clear. There is no pneumothorax or pleural effusion. Cardiac size is normal. Mediastinal contours are normal. There is no evidence for pulmonary edema. IMPRESSION: No acute cardiopulmonary findings. ACT 112: Negative or not required by law. Electronically signed by: Carlos Dawn M.D. 07/10/2021 4:55 PM Medications Administered Discontinued Medications Sodium Chloride (Nss 1000ml) 1,000 mls @ 999 mls/hr IV .Q1H1M STA Stop: 07/10/21 17:38 Last Infusion: 07/10/21 18:05 Dose: 999 mls/hr Documented by: [id number] Admin: 07/10/21 17:04 Dose: 999 mls/hr Documented by: [id number] Piperacillin Sod/Tazobactam Sod (Zosyn) 4.5 gm in 120 mls @ 240 mls/hr IV NOW ONE Stop: 07/10/21 20:01 Last Admin: 07/10/21 20:00 Dose: 240 mls/hr Documented by: [id number] Ondansetron HCl (Ondansetron Inj 2 Mg/Ml 2 Ml Vial) 4 mg IV NOW STA Stop: 07/10/21 16:39 Last Admin: 07/10/21 17:04 Dose: 4 mg Documented by: [id number] Home Medications buprenorphine 8 mg-naloxone 2 mg sublingual film (Suboxone) 1 ea BUCCAL BID #1 ea 03/26/19 [Rx Confirmed 07/10/21] amitriptyline 10 mg tablet 10 mg PO BID #60 tab 06/01/19 [Rx Confirmed 07/10/21] hydroxyzine HCl 50 mg tablet 50 mg PO Q8H PRN #90 tab 06/01/19 [Rx Confirmed 07/10/21] buspirone 10 mg tablet 10 mg PO BID 08/12/19 [History Confirmed 07/10/21] sertraline 100 mg tablet 200 mg PO QAM tab 08/12/19 [History Confirmed 07/10/21] drospirenone 3 mg-ethinyl estradiol 0.02 mg tablet (Britta (28)) 1 tab PO DAILY #112 tab 10/25/20 [Rx Confirmed 07/10/21] amitriptyline 100 mg tablet 200 mg PO HS 07/10/21 [History Confirmed 07/10/21] amitriptyline 50 mg tablet 50 mg PO HS 07/10/21 [History Confirmed 07/10/21] bupropion HCl 100 mg tablet,12 hr sustained-release (Wellbutrin SR) 100 mg PO QAM 07/10/21 [History Confirmed 07/10/21] omeprazole 40 mg capsule,delayed release 40 mg PO QAM 07/10/21 [History Confirmed 07/10/21] ropinirole 1 mg tablet 1 mg PO HS 07/10/21 [History Confirmed 07/10/21] Active Medications Miscellaneous Information (Piperacill/Tazobac Consult Active) 1 ea N/A UD PRN PRN Reason: Consult Stop: 08/09/21 19:31 ECG Additional Comments: Not performed/indicated Code Status & VTE Plan Code Status CODE: FULL VTE: SCDs, ambulation VTE Prophylaxis Plan VTE Prophylaxis will be ordered: Yes Supervising Physician Co-Signing Physician Notes Patient seen and examined, chart reviewed, case discussed with DAVE Felder and I agree with his assessment and plan as documented above. In brief, patient is a 31yo female presenting with RUQ abdominal pain. She had a partial workup completed at a facility in [place] including labs and MRCP which was negative for choledocholithiasis. Patient with elevated LFTs in mixed pattern - KJC=902, HLI=479, TBili=2.1 and PY=985. On exam patient is afebrile, HD stable, NAD. Resting comfortably in bed Skin - no icterus or jaundice HEENT - NC/AT, PERRL, MMM, Neck supple Heart - +S1/S2, regular, no m/r/g Lungs - CTA Abd - +tenderness in RUQ with voluntary guarding, no rebound Ext - warm, wll perfused, no clubbing/cyanosis or edema Labs and images reviewed. Assessment/Plan - 31yo female with history of cholelithiasis presenting with ongoing RUQ abdominal pain. LFTs elevated with mixed obstructive/hepatocellular pattern. MRCP performed at outside facility which did not reveal ductal dilatation or choledocholithiasis. Copy of result is on chart. -Admit to medical -Follow cultures. -Continue Zosyn -IVF, NPO -General Surgery and GI consultations appreciated - ?need for ERCP, possible cholecystectomy -Repeat labs in AM -Pain and nausea control as above PG Care Time/CCT Total # of Minutes Spent Total Time Spent with Patient: Total time spent is greater than 50% in coordination of care (as documented) at patient's floor/unit and/or counseling patient: Coding Level of Care Code 34899 Initial Inpt Care Lvl 3 Diagnoses Abdominal pain R10.9 Cholelithiasis K80.20 Depression F32.9 Anxiety F41.9 History of prescription drug abuse Abnormal urinalysis R82.90
--- NOTE | 2021-07-10 21:40 | Surgery Consultation ---
Date of Consultation July 10, 2021 Assessment & Plan (1) Cholelithiasis: Patient is being noted on the hospitalist service with surgical consultation. We recommend proceeding as follows: Keep patient n.p.o. for the present time Provide analgesics Provide antiemetics Provide antibiotics. Zosyn has been ordered Provide IV fluid for hydration Although the patient has no evidence of cholecystitis and she essentially had a normal MRCP at [facility] earlier today she has elevated LFTs. Her elevated LFTs with the presence of cholelithiasis raises the question of patient's abdominal pain is due to her passing gallstones there through her common bile duct. I discussed this with the medical service and therefore a gastroenterology consultation will be requested to determine if an ERCP will be required. At some point patient may benefit from a cholecystectomy and timing of this is pending gastroenterology recommendations Supervising Physician Co-Signing Physician Notes I personally saw and evaluated the patient with Geoffrey Renee PA-C and agree with the assessment and plan 31 yo female with elevated LFT's concerning for choledocholithiasis -Keep NPO -Admit to medicine -IV ABX to cover for cholangitis -GI consult -She will need cholecystectomy this admission, timing TBD History of Present Illness Reason for Consultation: Abdominal pain History of Present Illness This is a 31-year-old female who presented to [facility] emergency department secondary to abdominal pain. Patient notes that she has been having abdominal pain with no discernible pattern for approximately 1 year. She says over this time. She has just "dealt with the pain". I asked the patient if the pain was related to meals which she denied. She says the pain does not radiate. She does note that the pain is primarily located to the right upper quadrant and to a lesser degree the epigastric area. She notes that she has previously had abdominal surgeries in the form of a . She notes that she did seek medical attention at [facility] where she had a gallbladder ultrasound showing gallstones with no evidence of cholecystitis. She also had an MRCP on 07/10/2021 which showed no evidence of choledocholithiasis or no evidence of cholecystitis. As the patient continued to have ongoing pain she presented to [facility]. It is no over the mention that she denies any fevers, shakes, chills. She does have nausea without vomiting. In addition the patient notes that when she does get her abdominal pain she has episodes of obstipation in her stools are very loose at this time. In the emergency department [facility] the patient did have labs and imaging which independent reviewed. Her CBC revealed white blood cell count and hemoglobin were normal. Her platelet count was also noted to be normal. A chemistry profile showed sodium was 139. Potassium was 3.4. Creatinine was noted to be within normal range. Patient did have elevation of her LFTs with a total bilirubin of 2.1, AST of 365, ALT of 333, and alkaline phosphatase of 297. Patient's lipase was not elevated. test was noted to be negative. Urinalysis showed positive nitrites, trace leukocyte esterase, and 10-30 white blood cells per high-power field along with 1+ bacteria. A Covid test was performed was noted to be negative. Imaging performed at [facility] include a chest x-ray that showed no evidence of pneumonia or CHF. She had a KUB that showed no evidence of bowel obstruction. She also had a gallbladder ultrasound that showed gallstones with no sonographic evidence of cholecystitis as the patient did not have any gallbladder wall thickening and no pericholecystic fluid. There is also no evidence of biliary ductal dilatation on the study. At the time my interview she was resting comfortably in bed in no distress Allergies Allergy/AdvReac Type Severity Reaction Status Date / Time Sulfa (Sulfonamide Allergy Intermediate HIVES Verified 07/10/21 18:42 Antibiotics) tramadol Allergy Intermediate GI SYMPTOMS Verified 07/10/21 18:42 Home Medications Medication Instructions Recorded Confirmed Type buprenorphine 8 mg-naloxone 2 mg 1 ea BUCCAL BID #1 ea 03/26/19 07/10/21 Rx sublingual film (Suboxone) amitriptyline 10 mg tablet 10 mg PO BID #60 tab 06/01/19 07/10/21 Rx hydroxyzine HCl 50 mg tablet 50 mg PO Q8H PRN #90 tab 06/01/19 07/10/21 Rx buspirone 10 mg tablet 10 mg PO BID 08/12/19 07/10/21 History sertraline 100 mg tablet 200 mg PO QAM tab 08/12/19 07/10/21 History drospirenone 3 mg-ethinyl 1 tab PO DAILY #112 tab 10/25/20 07/10/21 Rx estradiol 0.02 mg tablet (Britta (28)) amitriptyline 100 mg tablet 200 mg PO HS 07/10/21 07/10/21 History amitriptyline 50 mg tablet 50 mg PO HS 07/10/21 07/10/21 History bupropion HCl 100 mg tablet,12 hr 100 mg PO QAM 07/10/21 07/10/21 History sustained-release (Wellbutrin SR) omeprazole 40 mg capsule,delayed 40 mg PO QAM 07/10/21 07/10/21 History release ropinirole 1 mg tablet 1 mg PO HS 07/10/21 07/10/21 History Patient History Medical History Anxiety Common migraine Depression Drug addiction External hemorrhoids Opioid abuse, in remission Sleep disturbances Surgical History S/P tonsillectomy Family History Father Hypertension Sister Hypertension Denies family history of Pancreatic cancer Ovarian cancer Prostate cancer Breast cancer Colorectal cancer Uterine cancer Social History Smoking Status: Current every day smoker Cigarettes Per Day: 1/2 pack; Do You Dip or Chew Tobacco: No; Tobacco Cessation Education Requested by Patient: No Hx Alcohol Use: No Hx Substance Use: Yes Substance Use Type Other:: Medical card Preferred Language: Gibraltarian Communication Ability: Effective Visual Impairment: No Limitations Hearing Ability: Normal Back Maker Required: No Beliefs That Will Affect Care: None marital status: Single Current Living Situation: Family Other Information That Helps Us Care for You: No Feels Safe at Home: Yes Safety Concerns: Feels Safe At This Time Childhood Exposure to Second-Hand Smoke: No Seatbelt Use: always Assistive Devices: None Review of Systems Constitutional: no fever and no chills Eyes: no diplopia Ear, Nose, Mouth, Throat: no ear pain Respiratory: no cough and no dyspnea Cardiovascular: no chest pain Gastrointestinal: + abdominal pain, + nausea and + diarrhea/loose stools; no vomiting Genitourinary: no dysuria Musculoskeletal: no back pain Integumentary: no rash Neurologic: no localized weakness Physical Exam Constitutional: well developed and well nourished; no acute distress Eyes: no conjunctival abnormality ENMT: Ears: no hearing impairment Mouth: no oropharynx abnormality Neck: trachea midline Respiratory: normal respiratory effort, lungs clear to auscultation Cardiovascular: Rate/Rhythm: regular rate and regular rhythm Gastrointestinal (Abdomen): Patient's abdomen is soft and nondistended. Bowel sounds are present. There is no rebound tenderness or guarding. Patient did have pain with palpation noted in the epigastric area and to a greater extent the right upper quadrant. Simpson sign was noted to be positive. Musculoskeletal: No calf tenderness Skin: no rashes Neurologic: moves all extremities Psychiatric: A+Ox3, euthymic affect Results & Data ([facility]) Vital Signs (Past 12 Hours) Vital Signs Temp Pulse Resp BP Pulse Ox 07/10/21 15:08 36.3 C L 96 H 20 136/76 100 PG Care Time/CCT Total # of Minutes Spent Total Time Spent with Patient: Total time spent is greater than 50% in coordination of care (as documented) at patient's floor/unit and/or counseling patient: Coding Level of Care Code 96669 Inpt Consult Level 5 Diagnoses Cholelithiasis K80.20
[2021-07-10] MEDS ORDERED: ACETAMINOPHEN 325 MG TAB PO PRN (22:13)
[2021-07-10] MEDS ORDERED: MAGNESIUM HYDROXIDE SUSP 30 ML UDC PO PRN (22:13)
[2021-07-10] MEDS ORDERED: LACTATED RINGER'S 1,000 ML IV SCH (22:13)
[2021-07-10] MEDS: BUPRENORPHINE/NALOXONE 8/2 MG TAB SL SCH (22:42)
[2021-07-10] MEDS: AMITRIPTYLINE HCL 100 MG TAB PO SCH (22:43)
[2021-07-10] MEDS: AMITRIPTYLINE HCL 50 MG TAB PO SCH (22:43)
[2021-07-10] MEDS: busPIRone 5 MG TAB PO SCH (22:43)
[2021-07-10] MEDS: rOPINIRole HCL 1 MG TABLET PO SCH (22:43)
[2021-07-10] MEDS: PIPERACILLIN/TAZOBACTAM 3.375 GM in DEXTROSE 5% 100 ML IV SCH (22:46)
[2021-07-11 07:34] LABS: Basophils # (auto) 0.02 K/uL (0-0.2); Basophils % (auto) 0.4 %; Eosinophils # (auto) 0.23 K/uL (0-0.5); Eosinophils % (auto) 4.6 %; Hematocrit (blood only) 33.5 % (37-47); Hemoglobin 11.1 g/dL (12.0-16.0); Immature Granulocytes # (auto) 0.01 K/uL (0.00-0.02); Immature Granulocytes % (auto) 0.2 %; Lymphocytes # (auto) 1.95 K/uL (1.2-3.4); Lymphocytes % (auto) 39.4 %; Mean Corpuscular Hemoglobin 26.9 pg (25-34); Mean Corpuscular Hgb Conc 33.1 g/dL (32-36); Mean Corpuscular Volume 81.3 fL (80-100); Mean Platelet Volume 11.2 fL (7.4-10.4); Monocytes # (auto) 0.28 K/uL (0.11-0.59); Monocytes % (auto) 5.7 %; Neutrophils # (auto) 2.46 K/uL (1.4-6.5); Neutrophils % (auto) 49.7 %; Platelet Count 255 K/uL (130-400); RDW Coefficient of Variation 13.5 % (11.5-14.5); RDW Standard Deviation 40.4 fL (36.4-46.3); Red Blood Count 4.12 M/uL (4.2-5.4); White Blood Count 4.95 K/uL (4.8-10.8)
[2021-07-11 08:03] LABS: Albumin Level 2.8 gm/dl (3.4-5.0); BUN Creatinine Ratio 6.6 (10-20); Calcium 7.9 mg/dl (8.5-10.1); Creatinine Clr Calc Pharmacy 116.1 ml/min; Est GFR (African American) 138.8 ml/min; Est GFR (Non-African American) 119.7 ml/min; Magnesium 2.2 mg/dl (1.8-2.4); Potassium 3.3 mmol/L (3.5-5.1)
--- NOTE | 2021-07-11 08:06 | Hospitalist Progress Note ---
Date of Service July 11, 2021 Assessment & Plan (1) Cholelithiasis: Plan: As per HPI-reports from [facility] on the chart Imaging performed at [facility] with evidence of gallstones and was initially supposed to be transferred to [place] signed out AMA and came to this hospital for evaluation and treatment. Suspect ongoing abdominal discomfort for the past year related to her cholelithiasis and dietary intake Zosyn IV and this will be continued as well as Protonix for history of reflux/PPI proph Continue LR IVF but add 20 mEq potassium for hypokalemia this morning as well as ordered 2 K riders continue to monitor labs Controlled with Tylenol and Toradol at present Or dose of Tylenol IV if needed is n.p.o. No further nausea or vomiting and patient states abdominal pain currently well controlled with ordered medications With blood count wnl, patient remains afebrile LFTs remain elevated, but are improved--> T bili 1.2 down from 2.1. AST 243 from 365. ALT 266 from 333. ALP 243 from 297 GI on consultinitially was not going to do ERCP and patient did eat a Jell-O , however decision made to pursue this evening for possibly passing stones bile duct General surgery on consultplans for cholecystectomy tomorrow possibly Continue to monitor labs in a.m., supportive (2) Abdominal pain: Plan: Suspect secondary to above Currently controlled with oral medications (3) Depression: Plan: Continue Amitriptyline, Buspirone, Bupropion, and sertraline (4) Anxiety: Plan: As above (5) History of prescription drug abuse: Plan: Previous abuse in [id number] - remains on Suboxone Also 1/2 pack/day smoker and requested nicotine patchordered. Recommend smoking cessation (6) Abnormal urinalysis: Plan: (+) LE, (+) nitrite, EPI>30, bacteria 1+- asymptomatic - will be on Zosyn for GI coverage - can resend at discharge if warranted/or symptomatic of note, hx enterococcus faecalis on urine cx Nov 09-- seen by CAREER SERVICES DIRECTOR at that time and placed on nitrofurantoin which it was sensitive to...will need to monitor urine cx Culture with pinpoint growth currentlyfollow Plan: N.p.o. for ERCP this afternoon with possible cholecystectomy with Dr. Groves tomorrow Continue with IV Zosyn, pain control, IV fluids SCDs for DVT prophylaxis Chemical held for possible upcoming surgery but would start following Admission and Anticipated Discharge Date Admission Date: July 10, 2021 Supervising Physician Co-Signing Physician Notes Attending Attestation - Chart reviewed in detail, care plan d/w SURY Floyd. I agree w/ the valladares components of her documentation. s/p ERCP today by Dr Moreno. Pt with choledocholithiasis - s/p retrieval of stones/sludge with placement of CBD stent & pancreatic duct stent. No cholangitis seen. Serial LFTs. Will need lap gagandeep. Carl Loo MD Subjective Patient evaluated this morning. Pain controlled with ordered medications. No further nausea or vomiting since admission. Continued on abx. IV potassium burnt but better now with reduced rate. Discussed added to IVF as well. Possible ERCP tomorrow with GI but otherwise appears possible lap gagandeep on Friday by general surgery. Still with headache but no blurred vision and request for tylneol. Will order IV x 1 and monitor response. No fever, chills, cp, sob, n/v, diarrhea at this time. GI seen later in AM and no plans for ERCP. Will contact about feeding and surgery tomorrow vs Friday. --> Now pending for ERCP this afternoon Review of Systems Review of Systems: All systems reviewed & are unremarkable except as noted in HPI & below Physical Exam Physical Exam: PHYSICAL EXAM: General: awake, alert, no apparent distress, laying in bed. Appears comfortable Head: Normocephalic, atraumatic ENT: PERRL, EOMI, no pharyngeal exudate, mucous membranes moist Neuro: AAO x 3, speech clear and appropriate, strength intact bilaterally 5/5, sensation intact and equal all extremities and dermatomes, no pronator drift Chest: equal rise and fall of the chest, no accessory muscle use, no heaves or thrills, Clear to auscultation, on room air, Cardiac: Regular rate and rhythm, telemetry reviewed, skin warm dry, cap refill <3 seconds, peripheral pulses +2 no JVD, no murmur, no edema GI: NABS x 4 quadrants, soft, tender to palpation RUQ, without rebound or guarding : Spontaneously voiding, no pain, no CVA tenderness, Extremities: Normal inspection, no peripheral edema or erythema, calfs nontender to palpation Psych: Alert and oriented x4 Skin: no rash or erythema Results & Data Results & Data ([facility]) Vital Signs (Past 12 Hours) Vital Signs Temp Pulse Pulse Resp BP BP Pulse Ox 07/11/21 07:04 36.9 C 81 16 112/72 98 07/10/21 22:54 36.8 C 84 18 143/89 H 97 07/10/21 22:16 36.9 C 105 H 18 152/95 H 91 07/10/21 21:00 88 17 134/89 100 07/10/21 20:30 89 25 H 133/89 100 Laboratory Results 07/11/21 07/11/21 07/10/21 Range/Units 07:20 07:20 19:34 WBC 4.95 (4.8-10.8) K/uL RBC 4.12 L (4.2-5.4) M/uL Hgb 11.1 L (12.0-16.0) g/dL Hct 33.5 L (37-47) % MCV 81.3 (80-100) fL MCH 26.9 (25-34) pg MCHC 33.1 (32-36) g/dL RDW Std Deviation 40.4 (36.4-46.3) fL RDW Coeff of Kinza 13.5 (11.5-14.5) % Plt Count 255 (130-400) K/uL MPV 11.2 H (7.4-10.4) fL Immature Gran % (Auto) 0.2 % Neut % (Auto) 49.7 % Lymph % (Auto) 39.4 % [place] % (Auto) 5.7 % Eos % (Auto) 4.6 % Baso % (Auto) 0.4 % Neut # (Auto) 2.46 (1.4-6.5) K/uL Lymph # (Auto) 1.95 (1.2-3.4) K/uL [place] # (Auto) 0.28 (0.11-0.59) K/uL Eos # (Auto) 0.23 (0-0.5) K/uL Baso # (Auto) 0.02 (0-0.2) K/uL Immature Gran # (Auto) 0.01 (0.00-0.02) K/uL Sodium 140 (136-145) mmol/L Potassium 3.3 L (3.5-5.1) mmol/L Chloride 109 H (98-107) mmol/L Carbon Dioxide 23 (21-32) mmol/L Anion Gap 8.0 (3-11) BUN 4 L (7-18) mg/dl Creatinine 0.64 (0.6-1.2) mg/dl Est Cr Clr Drug Dosing 116.1 ml/min Est GFR ( Amer) 138.8 ml/min Est GFR (Non-Af Amer) 119.7 ml/min BUN/Creatinine Ratio 6.6 L (10-20) Glucose 83 (70-99) mg/dl Calcium 7.9 L (8.5-10.1) mg/dl Magnesium 2.2 (1.8-2.4) mg/dl Total Bilirubin Pending (0.2-1) mg/dl AST 243 H (15-37) U/L ALT 266 H (12-78) U/L Alkaline Phosphatase Pending (45-117) U/L Total Protein Pending (6.4-8.2) gm/dl Albumin 2.8 L (3.4-5.0) gm/dl Globulin Pending (2.5-4.0) gm/dl Albumin/Globulin Ratio Pending (0.9-2) Lipase (73-393) U/L HCG, Qual (Negative) Urine Color Urine Appearance (Clear) Urine pH (4.5-7.5) Ur Specific [place] (1.000-1.030) Urine Protein (Negative) Urine Glucose (UA) (Negative) Urine Ketones (Negative) Urine Blood (Negative) Urine Nitrite (Negative) Urine Bilirubin (Negative) Urine Urobilinogen (Negative) Ur Leukocyte Esterase (Negative) Urine WBC (Auto) (0-5) /hpf Urine RBC (Auto) (0-4) /hpf U Hyaline Cast (Auto) (0-5) /lpf U Epithel Cells (Auto) (0-5) /lpf Urine Bacteria (Auto) (Negative) Urine Yeast COVID-19 Eval Order SARS-CoV-2 (PCR) NEGATIVE (Negative) 07/10/21 07/10/21 07/10/21 Range/Units 19:34 17:06 17:06 WBC (4.8-10.8) K/uL RBC (4.2-5.4) M/uL Hgb (12.0-16.0) g/dL Hct (37-47) % MCV (80-100) fL MCH (25-34) pg MCHC (32-36) g/dL RDW Std Deviation (36.4-46.3) fL RDW Coeff of Kinza (11.5-14.5) % Plt Count (130-400) K/uL MPV (7.4-10.4) fL Immature Gran % (Auto) % Neut % (Auto) % Lymph % (Auto) % [place] % (Auto) % Eos % (Auto) % Baso % (Auto) % Neut # (Auto) (1.4-6.5) K/uL Lymph # (Auto) (1.2-3.4) K/uL [place] # (Auto) (0.11-0.59) K/uL Eos # (Auto) (0-0.5) K/uL Baso # (Auto) (0-0.2) K/uL Immature Gran # (Auto) (0.00-0.02) K/uL Sodium 139 (136-145) mmol/L Potassium 3.4 L (3.5-5.1) mmol/L Chloride 108 H (98-107) mmol/L Carbon Dioxide 24 (21-32) mmol/L Anion Gap 7.0 (3-11) BUN 6 L (7-18) mg/dl Creatinine 0.76 (0.6-1.2) mg/dl Est Cr Clr Drug Dosing 98.7 ml/min Est GFR ( Amer) 122.0 ml/min Est GFR (Non-Af Amer) 105.3 ml/min BUN/Creatinine Ratio 7.3 L (10-20) Glucose 93 (70-99) mg/dl Calcium 8.9 (8.5-10.1) mg/dl Magnesium (1.8-2.4) mg/dl Total Bilirubin 2.1 H (0.2-1) mg/dl AST 365 H (15-37) U/L ALT 333 H (12-78) U/L Alkaline Phosphatase 297 H (45-117) U/L Total Protein 7.7 (6.4-8.2) gm/dl Albumin 3.4 (3.4-5.0) gm/dl Globulin 4.3 H (2.5-4.0) gm/dl Albumin/Globulin Ratio 0.8 L (0.9-2) Lipase 68 L (73-393) U/L HCG, Qual (Negative) Urine Color Dark Yellow Urine Appearance Cloudy A (Clear) Urine pH 6.5 (4.5-7.5) Ur Specific [place] 1.012 (1.000-1.030) Urine Protein Negative (Negative) Urine Glucose (UA) Negative (Negative) Urine Ketones Negative (Negative) Urine Blood Negative (Negative) Urine Nitrite Positive A (Negative) Urine Bilirubin 2+ H (Negative) Urine Urobilinogen Positive H (Negative) Ur Leukocyte Esterase Trace H (Negative) Urine WBC (Auto) 10-30 H (0-5) /hpf Urine RBC (Auto) 0-4 (0-4) /hpf U Hyaline Cast (Auto) 0 (0-5) /lpf U Epithel Cells (Auto) >30 H (0-5) /lpf Urine Bacteria (Auto) 1+ H (Negative) Urine Yeast Not Reportable COVID-19 Eval Order Covid19 at [facility] SARS-CoV-2 (PCR) (Negative) 07/10/21 07/10/21 Range/Units 17:06 17:06 WBC 5.15 (4.8-10.8) K/uL RBC 4.33 (4.2-5.4) M/uL Hgb 12.1 (12.0-16.0) g/dL Hct 35.9 L (37-47) % MCV 82.9 (80-100) fL MCH 27.9 (25-34) pg MCHC 33.7 (32-36) g/dL RDW Std Deviation 40.4 (36.4-46.3) fL RDW Coeff of Kinza 13.4 (11.5-14.5) % Plt Count 298 (130-400) K/uL MPV 11.2 H (7.4-10.4) fL Immature Gran % (Auto) 0.0 % Neut % (Auto) 48.7 % Lymph % (Auto) 39.8 % [place] % (Auto) 6.8 % Eos % (Auto) 4.1 % Baso % (Auto) 0.6 % Neut # (Auto) 2.51 (1.4-6.5) K/uL Lymph # (Auto) 2.05 (1.2-3.4) K/uL [place] # (Auto) 0.35 (0.11-0.59) K/uL Eos # (Auto) 0.21 (0-0.5) K/uL Baso # (Auto) 0.03 (0-0.2) K/uL Immature Gran # (Auto) 0.00 (0.00-0.02) K/uL Sodium (136-145) mmol/L Potassium (3.5-5.1) mmol/L Chloride (98-107) mmol/L Carbon Dioxide (21-32) mmol/L Anion Gap (3-11) BUN (7-18) mg/dl Creatinine (0.6-1.2) mg/dl Est Cr Clr Drug Dosing ml/min Est GFR ( Amer) ml/min Est GFR (Non-Af Amer) ml/min BUN/Creatinine Ratio (10-20) Glucose (70-99) mg/dl Calcium (8.5-10.1) mg/dl Magnesium (1.8-2.4) mg/dl Total Bilirubin (0.2-1) mg/dl AST (15-37) U/L ALT (12-78) U/L Alkaline Phosphatase (45-117) U/L Total Protein (6.4-8.2) gm/dl Albumin (3.4-5.0) gm/dl Globulin (2.5-4.0) gm/dl Albumin/Globulin Ratio (0.9-2) Lipase (73-393) U/L HCG, Qual Negative (Negative) Urine Color Urine Appearance (Clear) Urine pH (4.5-7.5) Ur Specific [place] (1.000-1.030) Urine Protein (Negative) Urine Glucose (UA) (Negative) Urine Ketones (Negative) Urine Blood (Negative) Urine Nitrite (Negative) Urine Bilirubin (Negative) Urine Urobilinogen (Negative) Ur Leukocyte Esterase (Negative) Urine WBC (Auto) (0-5) /hpf Urine RBC (Auto) (0-4) /hpf U Hyaline Cast (Auto) (0-5) /lpf U Epithel Cells (Auto) (0-5) /lpf Urine Bacteria (Auto) (Negative) Urine Yeast COVID-19 Eval Order SARS-CoV-2 (PCR) (Negative) Diagnostic Findings Gallbladder Ultrasound 07/10/21 16:38 US gallbladder CLINICAL HISTORY: Right upper quadrant abdominal pain. COMPARISON STUDY: KUB performed earlier today. FINDINGS: The liver is sonographically normal. There is no biliary ductal dilatation. The common bile duct measures 3 mm in caliber. There are numerous gallstones within the gallbladder. There is no gallbladder wall thickening. No sonographic Simpson sign was elicited. There is no pericholecystic fluid. Gallbladder is mildly distended. Pancreatic body is normal. Head and tail are partially obscured. There is no right hydronephrosis. IMPRESSION: 1. Cholelithiasis. No sonographic evidence of acute cholecystitis. 2. No biliary ductal dilatation. ACT 112: Negative or not required by law. Electronically signed by: Carlos Dawn M.D. 07/10/2021 6:26 PM KUB X-Ray 07/10/21 16:38 KUB CLINICAL HISTORY: Right upper quadrant pain. COMPARISON STUDY: None. FINDINGS: The bowel gas pattern is unremarkable. No calcifications are identified. Amount of stool is within normal limits. Although sensitivity is diminished on this supine exam, there is no evidence for free air. IMPRESSION: No evidence for a bowel obstruction. ACT 112: Negative or not required by law. Electronically signed by: Carlos Dawn M.D. 07/10/2021 4:56 PM Chest X-Ray 07/10/21 16:39 XR chest 1V portable CLINICAL HISTORY: Right upper quadrant abdominal pain. COMPARISON STUDY: Chest radiograph March 05, 2016. FINDINGS: Lung volumes are normal. Lungs are clear. There is no pneumothorax or pleural effusion. Cardiac size is normal. Mediastinal contours are normal. There is no evidence for pulmonary edema. IMPRESSION: No acute cardiopulmonary findings. ACT 112: Negative or not required by law. Electronically signed by: Carlos Dawn M.D. 07/10/2021 4:55 PM PG Care Time/CCT Total # of Minutes Spent Total Time Spent with Patient: Total time spent is greater than 50% in coordination of care (as documented) at patient's floor/unit and/or counseling patient: Coding Level of Care Code 66656 Subseq Hosp Care Lvl 3 Diagnoses Abdominal pain R10.11 Abdominal location: right upper quadrant Cholelithiasis K80.20 Biliary obstruction: without biliary obstruction Cholecystitis presence: without cholecystitis Cholelithiasis location: gallbladder Depression F32.9 Anxiety F41.9 History of prescription drug abuse Abnormal urinalysis R82.90 (1) Abdominal pain Abdominal location: right upper quadrant Qualified Code(s): R10.11 - Right upper quadrant pain (2) Cholelithiasis Biliary obstruction: without biliary obstruction Cholecystitis presence: without cholecystitis Cholelithiasis location: gallbladder Qualified Code(s): K80.20 - Calculus of gallbladder without cholecystitis without obstruction
[2021-07-11 08:09] LABS: Albumin Globulin Ratio 0.8 (0.9-2); Bilirubin,Total 1.2 mg/dl (0.2-1); Globulin 3.5 gm/dl (2.5-4.0); Total Protein 6.3 gm/dl (6.4-8.2)
[2021-07-11] MEDS ORDERED: POTASSIUM CHLORIDE 20 MEQ in LACTATED RINGER'S 1,000 ML IV SCH (08:30)
[2021-07-11] MEDS: POTASSIUM CHLORIDE / WTR 10 MEQ/100 ML PLCT IV SCH ×2 (08:50→10:55)
[2021-07-11] MEDS: BUPRENORPHINE/NALOXONE 8/2 MG TAB SL SCH ×2 (08:51→20:09)
[2021-07-11] MEDS: PIPERACILLIN/TAZOBACTAM 3.375 GM in DEXTROSE 5% 100 ML IV SCH ×3 (08:51→23:29)
[2021-07-11] MEDS: SERTRALINE HCL 100 MG TABLET PO SCH (08:52)
[2021-07-11] MEDS: AMITRIPTYLINE HCL 10 MG TAB PO SCH ×2 (08:52→16:46)
[2021-07-11] MEDS: buPROPion SR 100 MG TABCR PO SCH (08:52)
[2021-07-11] MEDS: busPIRone 5 MG TAB PO SCH ×2 (08:53→20:09)
--- NOTE | 2021-07-11 08:57 | Gastrointestinal Consultation ---
Date of Consultation July 11, 2021 Assessment & Plan (1) Cholelithiasis: (2) Abnormal LFTs: This is 31 y/o female with upper abd pain x 1 year that got worse, and imaging evidence for cholelithiasis without cholecystitis. Given her elevated LFTs, possible CBD sludge/stone. Plan per surgery is cholecystectomy this admission. On exam abd is soft, no tachycardia, leukocytosis. - Keep NPO - IV ABX as per primary team - IV analgesia - IV antiemetics PRN - Supportive care - Will plan for EUS/ERCP later today to evaluate for biliary stone/sludge Thank you for allowing us to participate in the care of this patient. Please call with any acute changes, questions or concerns. Please see addendum below with additional recommendation from my supervising physician. Supervising Physician Co-Signing Physician Notes I have personally seen and examined the patient with Maria D Carbone PA-C. Her note reflects my exam and findings. I agree with her impression and plan. Bili still up... CBD stone possible. Case discussed with Dr. Moreno. Will arrange EUS/ERCP. Discussed with patient. Maximo Myers M.D. History of Present Illness Reason for Consultation: cholelithiasis Requesting Physician: DAVE Meléndez Attending Physician: Carl Loo History of Present Illness This is a 31 y/o female with history of anxiety, depression, substance abuse, migraines and others who presented to the ER with abd pain. She's had intermittent RUQ pain over the last year. She was seen at [facility] 07/09 and had US which showed gallstones, MRCP on 07/10 which showed no cho ledocholithiasis or cholecystis (report in her paper chart). She was apparently going to be transferred but left AMA due to the wait time. On arrival here LFTs were elevated along with tbili, normal lipase. No leukocytosis or anemia. CXR and KUB neg. US ABD with gallstones but no evidence of cholecystitis, CBD 3; no obvious karly dil. She was evaluated by surgery and placed on IV Zosyn. GI was asked to evaluate for cholelithiasis. She has been seen by general surgery, This AM LFTs trended down slightly but remain elevated. K 3.3. Abd pain is improved with analgesia. No nausea, vomiting, fevers, rigors, shakes, CP, SOB, stool is loose, no melena, hematochezia. No AC, NSAIDs, tobacco or ETOH use. Allergies Allergy/AdvReac Type Severity Reaction Status Date / Time Sulfa (Sulfonamide Allergy Intermediate HIVES Verified 07/10/21 18:42 Antibiotics) tramadol Allergy Intermediate GI SYMPTOMS Verified 07/10/21 18:42 Home Medications Medication Instructions Recorded Confirmed Type buprenorphine 8 mg-naloxone 2 mg 1 ea BUCCAL BID #1 ea 03/26/19 07/10/21 Rx sublingual film (Suboxone) amitriptyline 10 mg tablet 10 mg PO BID #60 tab 06/01/19 07/10/21 Rx hydroxyzine HCl 50 mg tablet 50 mg PO Q8H PRN #90 tab 06/01/19 07/10/21 Rx buspirone 10 mg tablet 10 mg PO BID 08/12/19 07/10/21 History sertraline 100 mg tablet 200 mg PO QAM tab 08/12/19 07/10/21 History drospirenone 3 mg-ethinyl 1 tab PO DAILY #112 tab 10/25/20 07/10/21 Rx estradiol 0.02 mg tablet (Britta (28)) amitriptyline 100 mg tablet 200 mg PO HS 07/10/21 07/10/21 History amitriptyline 50 mg tablet 50 mg PO HS 07/10/21 07/10/21 History bupropion HCl 100 mg tablet,12 hr 100 mg PO QAM 07/10/21 07/10/21 History sustained-release (Wellbutrin SR) omeprazole 40 mg capsule,delayed 40 mg PO QAM 07/10/21 07/10/21 History release ropinirole 1 mg tablet 1 mg PO HS 07/10/21 07/10/21 History Patient History Medical History Anxiety Common migraine Depression Drug addiction External hemorrhoids Opioid abuse, in remission Sleep disturbances Surgical History S/P tonsillectomy Family History Father Hypertension Sister Hypertension Denies family history of Pancreatic cancer Ovarian cancer Prostate cancer Breast cancer Colorectal cancer Uterine cancer Social History Smoking Status: Current every day smoker Cigarettes Per Day: 1/2 pack; Do You Dip or Chew Tobacco: No; Tobacco Cessation Education Requested by Patient: No Hx Alcohol Use: No Hx Substance Use: Yes Substance Use Type Other:: Medical card Preferred Language: Moldovan Communication Ability: Effective Visual Impairment: No Limitations Hearing Ability: Normal Personnel Specialist Required: No Beliefs That Will Affect Care: None marital status: Single Current Living Situation: Family Other Information That Helps Us Care for You: No Feels Safe at Home: Yes Safety Concerns: Feels Safe At This Time Childhood Exposure to Second-Hand Smoke: No Seatbelt Use: always Assistive Devices: None Review of Systems Review of Systems: A complete review of systems was completed and negative except as noted in HPI. Physical Exam Constitutional: WD/WN, vitals as above Eyes: sclera anicteric Respiratory: normal respiratory effort, lungs clear to auscultation Cardiovascular: RRR, no murmur, no edema Gastrointestinal (Abdomen): Inspection/Auscultation: abdomen normal to inspection BS x 4 quads, minimal distention, mild TTP RUQ, no rebound, guarding, masses Skin: no rashes, warm and dry Psychiatric: A+Ox3, euthymic affect Results & Data ([facility]) Vital Signs (Past 12 Hours) Vital Signs Temp Pulse Pulse Resp BP BP Pulse Ox 07/11/21 07:04 36.9 C 81 16 112/72 98 07/10/21 22:54 36.8 C 84 18 143/89 H 97 07/10/21 22:16 36.9 C 105 H 18 152/95 H 91 07/10/21 21:00 88 17 134/89 100 Laboratory Results 07/11/21 07/11/21 07/10/21 Range/Units 07:20 07:20 19:34 WBC 4.95 (4.8-10.8) K/uL RBC 4.12 L (4.2-5.4) M/uL Hgb 11.1 L (12.0-16.0) g/dL Hct 33.5 L (37-47) % MCV 81.3 (80-100) fL MCH 26.9 (25-34) pg MCHC 33.1 (32-36) g/dL RDW Std Deviation 40.4 (36.4-46.3) fL RDW Coeff of Kinza 13.5 (11.5-14.5) % Plt Count 255 (130-400) K/uL MPV 11.2 H (7.4-10.4) fL Immature Gran % (Auto) 0.2 % Neut % (Auto) 49.7 % Lymph % (Auto) 39.4 % [place] % (Auto) 5.7 % Eos % (Auto) 4.6 % Baso % (Auto) 0.4 % Neut # (Auto) 2.46 (1.4-6.5) K/uL Lymph # (Auto) 1.95 (1.2-3.4) K/uL [place] # (Auto) 0.28 (0.11-0.59) K/uL Eos # (Auto) 0.23 (0-0.5) K/uL Baso # (Auto) 0.02 (0-0.2) K/uL Immature Gran # (Auto) 0.01 (0.00-0.02) K/uL Sodium 140 (136-145) mmol/L Potassium 3.3 L (3.5-5.1) mmol/L Chloride 109 H (98-107) mmol/L Carbon Dioxide 23 (21-32) mmol/L Anion Gap 8.0 (3-11) BUN 4 L (7-18) mg/dl Creatinine 0.64 (0.6-1.2) mg/dl Est Cr Clr Drug Dosing 116.1 ml/min Est GFR ( Amer) 138.8 ml/min Est GFR (Non-Af Amer) 119.7 ml/min BUN/Creatinine Ratio 6.6 L (10-20) Glucose 83 (70-99) mg/dl Calcium 7.9 L (8.5-10.1) mg/dl Magnesium 2.2 (1.8-2.4) mg/dl Total Bilirubin 1.2 H (0.2-1) mg/dl AST 243 H (15-37) U/L ALT 266 H (12-78) U/L Alkaline Phosphatase 243 H (45-117) U/L Total Protein 6.3 L (6.4-8.2) gm/dl Albumin 2.8 L (3.4-5.0) gm/dl Globulin 3.5 (2.5-4.0) gm/dl Albumin/Globulin Ratio 0.8 L (0.9-2) Lipase (73-393) U/L HCG, Qual (Negative) Urine Color Urine Appearance (Clear) Urine pH (4.5-7.5) Ur Specific [place] (1.000-1.030) Urine Protein (Negative) Urine Glucose (UA) (Negative) Urine Ketones (Negative) Urine Blood (Negative) Urine Nitrite (Negative) Urine Bilirubin (Negative) Urine Urobilinogen (Negative) Ur Leukocyte Esterase (Negative) Urine WBC (Auto) (0-5) /hpf Urine RBC (Auto) (0-4) /hpf U Hyaline Cast (Auto) (0-5) /lpf U Epithel Cells (Auto) (0-5) /lpf Urine Bacteria (Auto) (Negative) Urine Yeast COVID-19 Eval Order SARS-CoV-2 (PCR) NEGATIVE (Negative) 07/10/21 07/10/21 07/10/21 Range/Units 19:34 17:06 17:06 WBC (4.8-10.8) K/uL RBC (4.2-5.4) M/uL Hgb (12.0-16.0) g/dL Hct (37-47) % MCV (80-100) fL MCH (25-34) pg MCHC (32-36) g/dL RDW Std Deviation (36.4-46.3) fL RDW Coeff of Kinza (11.5-14.5) % Plt Count (130-400) K/uL MPV (7.4-10.4) fL Immature Gran % (Auto) % Neut % (Auto) % Lymph % (Auto) % [place] % (Auto) % Eos % (Auto) % Baso % (Auto) % Neut # (Auto) (1.4-6.5) K/uL Lymph # (Auto) (1.2-3.4) K/uL [place] # (Auto) (0.11-0.59) K/uL Eos # (Auto) (0-0.5) K/uL Baso # (Auto) (0-0.2) K/uL Immature Gran # (Auto) (0.00-0.02) K/uL Sodium 139 (136-145) mmol/L Potassium 3.4 L (3.5-5.1) mmol/L Chloride 108 H (98-107) mmol/L Carbon Dioxide 24 (21-32) mmol/L Anion Gap 7.0 (3-11) BUN 6 L (7-18) mg/dl Creatinine 0.76 (0.6-1.2) mg/dl Est Cr Clr Drug Dosing 98.7 ml/min Est GFR ( Amer) 122.0 ml/min Est GFR (Non-Af Amer) 105.3 ml/min BUN/Creatinine Ratio 7.3 L (10-20) Glucose 93 (70-99) mg/dl Calcium 8.9 (8.5-10.1) mg/dl Magnesium (1.8-2.4) mg/dl Total Bilirubin 2.1 H (0.2-1) mg/dl AST 365 H (15-37) U/L ALT 333 H (12-78) U/L Alkaline Phosphatase 297 H (45-117) U/L Total Protein 7.7 (6.4-8.2) gm/dl Albumin 3.4 (3.4-5.0) gm/dl Globulin 4.3 H (2.5-4.0) gm/dl Albumin/Globulin Ratio 0.8 L (0.9-2) Lipase 68 L (73-393) U/L HCG, Qual (Negative) Urine Color Dark Yellow Urine Appearance Cloudy A (Clear) Urine pH 6.5 (4.5-7.5) Ur Specific [place] 1.012 (1.000-1.030) Urine Protein Negative (Negative) Urine Glucose (UA) Negative (Negative) Urine Ketones Negative (Negative) Urine Blood Negative (Negative) Urine Nitrite Positive A (Negative) Urine Bilirubin 2+ H (Negative) Urine Urobilinogen Positive H (Negative) Ur Leukocyte Esterase Trace H (Negative) Urine WBC (Auto) 10-30 H (0-5) /hpf Urine RBC (Auto) 0-4 (0-4) /hpf U Hyaline Cast (Auto) 0 (0-5) /lpf U Epithel Cells (Auto) >30 H (0-5) /lpf Urine Bacteria (Auto) 1+ H (Negative) Urine Yeast Not Reportable COVID-19 Eval Order Covid19 at [facility] SARS-CoV-2 (PCR) (Negative) 07/10/21 07/10/21 Range/Units 17:06 17:06 WBC 5.15 (4.8-10.8) K/uL RBC 4.33 (4.2-5.4) M/uL Hgb 12.1 (12.0-16.0) g/dL Hct 35.9 L (37-47) % MCV 82.9 (80-100) fL MCH 27.9 (25-34) pg MCHC 33.7 (32-36) g/dL RDW Std Deviation 40.4 (36.4-46.3) fL RDW Coeff of Kinza 13.4 (11.5-14.5) % Plt Count 298 (130-400) K/uL MPV 11.2 H (7.4-10.4) fL Immature Gran % (Auto) 0.0 % Neut % (Auto) 48.7 % Lymph % (Auto) 39.8 % [place] % (Auto) 6.8 % Eos % (Auto) 4.1 % Baso % (Auto) 0.6 % Neut # (Auto) 2.51 (1.4-6.5) K/uL Lymph # (Auto) 2.05 (1.2-3.4) K/uL [place] # (Auto) 0.35 (0.11-0.59) K/uL Eos # (Auto) 0.21 (0-0.5) K/uL Baso # (Auto) 0.03 (0-0.2) K/uL Immature Gran # (Auto) 0.00 (0.00-0.02) K/uL Sodium (136-145) mmol/L Potassium (3.5-5.1) mmol/L Chloride (98-107) mmol/L Carbon Dioxide (21-32) mmol/L Anion Gap (3-11) BUN (7-18) mg/dl Creatinine (0.6-1.2) mg/dl Est Cr Clr Drug Dosing ml/min Est GFR ( Amer) ml/min Est GFR (Non-Af Amer) ml/min BUN/Creatinine Ratio (10-20) Glucose (70-99) mg/dl Calcium (8.5-10.1) mg/dl Magnesium (1.8-2.4) mg/dl Total Bilirubin (0.2-1) mg/dl AST (15-37) U/L ALT (12-78) U/L Alkaline Phosphatase (45-117) U/L Total Protein (6.4-8.2) gm/dl Albumin (3.4-5.0) gm/dl Globulin (2.5-4.0) gm/dl Albumin/Globulin Ratio (0.9-2) Lipase (73-393) U/L HCG, Qual Negative (Negative) Urine Color Urine Appearance (Clear) Urine pH (4.5-7.5) Ur Specific [place] (1.000-1.030) Urine Protein (Negative) Urine Glucose (UA) (Negative) Urine Ketones (Negative) Urine Blood (Negative) Urine Nitrite (Negative) Urine Bilirubin (Negative) Urine Urobilinogen (Negative) Ur Leukocyte Esterase (Negative) Urine WBC (Auto) (0-5) /hpf Urine RBC (Auto) (0-4) /hpf U Hyaline Cast (Auto) (0-5) /lpf U Epithel Cells (Auto) (0-5) /lpf Urine Bacteria (Auto) (Negative) Urine Yeast COVID-19 Eval Order SARS-CoV-2 (PCR) (Negative) Diagnostic Findings US ABD: FINDINGS: The liver is sonographically normal. There is no biliary ductal dilatation. The common bile duct measures 3 mm in caliber. There are numerous gallstones within the gallbladder. There is no gallbladder wall thickening. No sonographic Simpson sign was elicited. There is no pericholecystic fluid. Gallbladder is mildly distended. Pancreatic body is normal. Head and tail are partially obscured. There is no right hydronephrosis. IMPRESSION: 1. Cholelithiasis. No sonographic evidence of acute cholecystitis. 2. No biliary ductal dilatation. CXR: FINDINGS: Lung volumes are normal. Lungs are clear. There is no pneumothorax or pleural effusion. Cardiac size is normal. Mediastinal contours are normal. There is no evidence for pulmonary edema. IMPRESSION: No acute cardiopulmonary findings. (1) Cholelithiasis Biliary obstruction: without biliary obstruction Cholecystitis presence: without cholecystitis Cholelithiasis location: gallbladder Qualified Code(s): K80.20 - Calculus of gallbladder without cholecystitis without obstruction
--- NOTE | 2021-07-11 10:01 | Surgery Progress Note ---
Date of Service July 11, 2021 Assessment & Plan (1) Cholelithiasis: Plan: -Her LFT's are trending down, so she likely passed a stone -Will await GI input about need for ERCP -If no ERCP today, can have clears until [place] -Will tentatively plan on laparoscopic cholecystectomy, possible open tomorrow -Consent obtained, risks discussed including bleeding, infection, bile leak, ductal injury (2) Abnormal LFTs: Admission and Anticipated Discharge Date Admission Date: July 10, 2021 Subjective Pt seen and examined. Abdominal pain improved. Afebrile. No N/V. Review of Systems Constitutional: no fever and no chills Physical Exam Constitutional: WD/WN, vitals as above Respiratory: normal respiratory effort, lungs clear to auscultation Cardiovascular: RRR, no murmur, no edema Gastrointestinal (Abdomen): Inspection/Auscultation: abdomen normal to inspection; abdomen not distended Percussion/Palpation: + abdomen tender (minimal TTP RUQ) and abdomen soft; no guarding, abdomen not rigid and no hernia Negative Simpson's Musculoskeletal: no cyanosis or clubbing, extremities motor strength 5/5 Skin: no rashes, warm and dry Psychiatric: A+Ox3, euthymic affect Results & Data ([facility]) Vital Signs (Past 12 Hours) Vital Signs Temp Pulse Resp BP Pulse Ox 07/11/21 07:04 36.9 C 81 16 112/72 98 07/10/21 22:54 36.8 C 84 18 143/89 H 97 07/10/21 22:16 36.9 C 105 H 18 152/95 H 91 PG Care Time/CCT Total # of Minutes Spent Total Time Spent with Patient: Total time spent is greater than 50% in coordination of care (as documented) at patient's floor/unit and/or counseling patient: Coding Level of Care Code 47772 Subseq Hosp Care Lvl 2 Diagnoses Cholelithiasis K80.20 Biliary obstruction: without biliary obstruction Cholecystitis presence: without cholecystitis Cholelithiasis location: gallbladder Abnormal LFTs R94.5 (1) Cholelithiasis Biliary obstruction: without biliary obstruction Cholecystitis presence: without cholecystitis Cholelithiasis location: gallbladder Qualified Code(s): K80.20 - Calculus of gallbladder without cholecystitis without obstruction
[2021-07-11] MEDS: PANTOprazole 40 MG in SYRINGE 0 ML IV SCH (10:55)
[2021-07-11] MEDS: NICOTINE 14 MG/24 HR PATCH TD SCH (10:55)
[2021-07-11 12:28] LABS: Prothrombin Time 9.7 Seconds (9.0-12.0)
[2021-07-11] MEDS: ACETAMINOPHEN 1000 MG/100 ML IV IV PRN (12:35)
[2021-07-11] MEDS ORDERED: ONDANSETRON INJ 2 MG/ML 2 ML VIAL IV PRN (13:35)
[2021-07-11] MEDS ORDERED: ATROPINE SULFATE 0.1 MG/ML 10ML SYR IV PRN (13:35)
[2021-07-11] MEDS ORDERED: fentaNYL citrate 100 MCG/2 ML VIAL IV PRN (13:35)
[2021-07-11] MEDS ORDERED: LABETALOL HCL IV 5 MG/ML 20ML IV PRN (13:35)
[2021-07-11] MEDS ORDERED: PHENYLEPHRINE 100MCG/ML 5ML SYR IV PRN (13:35)
--- NOTE | 2021-07-11 13:40 | Anesthesiology Consultation ---
Date of Service July 11, 2021 Assessment & Plan (1) Encounter for pre-operative examination: Chart Review Chart Review: Acceptable Risk for Surgery and Patient NOT seen in Pre Admission Testing Consults Requested none History Surgery Operation Date: 07/11/21 07:00 Proposed Procedures p Endoscopic Ultrasonography Upper - Nichole Moreno DO s Endoscopic Retrograde Cholangiopancreatogram - Nichole Moreno DO Operation Date: 07/12/21 13:00 Proposed Procedures p Laparoscopic Cholecystectomy, Possible Cholangiogram, Possible Open - Perry Sherlyn Groves DO Height/Weight Height: 5 ft Weight: 74.8 kg Allergies Allergy/AdvReac Type Severity Reaction Status Date / Time Sulfa (Sulfonamide Allergy Intermediate HIVES Verified 07/10/21 18:42 Antibiotics) tramadol Allergy Intermediate GI SYMPTOMS Verified 07/10/21 18:42 Medications Home Medications Medication Instructions Recorded Confirmed Last Taken buprenorphine 8 mg-naloxone 2 mg 1 ea BUCCAL BID #1 ea 03/26/19 07/10/21 Unknown sublingual film (Suboxone) amitriptyline 10 mg tablet 10 mg PO BID #60 tab 06/01/19 07/10/21 Unknown hydroxyzine HCl 50 mg tablet 50 mg PO Q8H PRN #90 tab 06/01/19 07/10/21 Unknown buspirone 10 mg tablet 10 mg PO BID 08/12/19 07/10/21 Unknown sertraline 100 mg tablet 200 mg PO QAM tab 08/12/19 07/10/21 Unknown drospirenone 3 mg-ethinyl 1 tab PO DAILY #112 tab 10/25/20 07/10/21 Unknown estradiol 0.02 mg tablet (Britta (28)) amitriptyline 100 mg tablet 200 mg PO HS 07/10/21 07/10/21 Unknown amitriptyline 50 mg tablet 50 mg PO HS 07/10/21 07/10/21 Unknown bupropion HCl 100 mg tablet,12 hr 100 mg PO QAM 07/10/21 07/10/21 Unknown sustained-release (Wellbutrin SR) omeprazole 40 mg capsule,delayed 40 mg PO QAM 07/10/21 07/10/21 Unknown release ropinirole 1 mg tablet 1 mg PO HS 07/10/21 07/10/21 Unknown Active Medications Generic Name Dose Route Start Last Admin Trade Name Freq PRN Reason Stop Dose Admin Acetaminophen 650 mg 07/10/21 22:13 07/10/21 22:42 Acetaminophen 325 Mg Tab PO 08/09/21 22:12 650 mg Q4H PRN Administration pain/fever Acetaminophen 1,000 mg 07/11/21 10:54 07/11/21 12:35 Acetaminophen 1000 Mg/100 Ml Iv IV 07/14/21 10:53 1,000 mg Q8H PRN Administration fever or headache Amitriptyline HCl 50 mg 07/10/21 22:13 07/10/21 22:43 Amitriptyline Hcl 50 Mg Tab PO 08/09/21 22:12 50 mg HS RONNA Administration Amitriptyline HCl 200 mg 07/10/21 22:13 07/10/21 22:43 Amitriptyline Hcl 100 Mg Tab PO 08/09/21 22:12 200 mg HS RONNA Administration Amitriptyline HCl 10 mg 07/11/21 09:00 07/11/21 08:52 Amitriptyline Hcl 10 Mg Tab PO 08/10/21 08:59 10 mg BID@0900,1400 RONNA Administration Buprenorphine/Naloxone 1 tab 07/10/21 22:13 07/11/21 08:51 Buprenorphine/Naloxone 8/2 Mg Tab SL 08/09/21 22:12 1 tab BID RONNA Administration Bupropion HCl 100 mg 07/11/21 09:00 07/11/21 08:52 Bupropion Sr 100 Mg Tabcr PO 08/10/21 08:59 100 mg QAM RONNA Administration Buspirone HCl 10 mg 07/10/21 22:13 07/11/21 08:53 Buspirone 5 Mg Tab PO 08/09/21 22:12 10 mg BID RONNA Administration Piperacillin Sod/Tazobactam 115 mls @ 28.75 mls/hr 07/11/21 00:00 07/11/21 12:35 Sod 3.375 gm/ Dextrose IV 07/21/21 00:00 Infused Q8H RONNA Infusion Protocol Pantoprazole Sodium 40 mg/ 10 mls @ 5 mls/min 07/11/21 11:00 07/11/21 10:55 Syringe IV 08/10/21 10:59 5 mls/min DAILY@1100 RONNA Administration Potassium Chloride 20 meq/ 1,010 mls @ 90 mls/hr 07/11/21 08:30 07/11/21 13:15 Lactated Ringer's IV 08/10/21 08:07 0 mls/hr .[id number] RONNA Infusion Nicotine 14 mg 07/11/21 10:15 07/11/21 10:55 Nicotine 14 Mg/24 Hr Patch TD 08/10/21 10:14 14 mg QAM RONNA Administration Ropinirole HCl 1 mg 07/10/21 22:13 07/10/21 22:43 Ropinirole Hcl 1 Mg Tablet PO 08/09/21 22:12 1 mg HS RONNA Administration Sertraline HCl 200 mg 07/11/21 09:00 07/11/21 08:52 Sertraline Hcl 100 Mg Tablet PO 08/10/21 08:59 200 mg QAM RONNA Administration NPO Date Last Intake of Fluids: 07/11/21 Time Last Intake of Fluids: 08:30 Date Last Intake of Solids: 07/11/21 Time Last Intake of Solids: 08:30 Past Medical History Medical History Anemia Anxiety Common migraine Depression Drug addiction External hemorrhoids Opioid abuse, in remission Sleep disturbances Smoker Exercise / Class Metabolic Activity II 4-5 Yardwork/Stairs/Walk up hill Past Family History Family History Father Hypertension Sister Hypertension Denies family history of Pancreatic cancer Ovarian cancer Prostate cancer Breast cancer Colorectal cancer Uterine cancer Past Surgical History Surgical History S/P tonsillectomy Past Anesthesia History No Hx of Anesthesia Complications and No Family Hx of Anesthesia Complications History of PONV No Hx of PONV and No Hx of Motion Sickness Social History Smoking Status: Current every day smoker tobacco type: cigarettes Smoking cigarettes per day: 1/2 pack Do You Dip or Chew Tobacco: No Hx Alcohol Use: No Hx Substance Use: Yes substance use type: marijuana Substance Use Type Other:: Medical card Physical Exam Vital Signs Last Vital Signs Temp 36.9 C 07/11/21 13:26 Pulse 90 07/11/21 13:26 Resp 18 07/11/21 13:26 BP 132/83 07/11/21 13:26 Pulse Ox 96 07/11/21 13:26 Testing Laboratory Results 07/11/21 07:20 07/11/21 07:20 PT 9.7 Seconds (9.0-12.0) 07/11/21 12:01 INR 1.0 (0.9-1.1) 07/11/21 12:01 Urine Color Dark Yellow 07/10/21 17:06 Urine Appearance Cloudy (Clear) A 07/10/21 17:06 Urine pH 6.5 (4.5-7.5) 07/10/21 17:06 Ur Specific [place] 1.012 (1.000-1.030) 07/10/21 17:06 Urine Protein Negative (Negative) 07/10/21 17:06 Urine Glucose (UA) Negative (Negative) 07/10/21 17:06 Urine Ketones Negative (Negative) 07/10/21 17:06 Urine Nitrite Positive (Negative) A 07/10/21 17:06 Ur Leukocyte Esterase Trace (Negative) H 07/10/21 17:06 Urine WBC (Auto) 10-30 /hpf (0-5) H 07/10/21 17:06 Urine RBC (Auto) 0-4 /hpf (0-4) 07/10/21 17:06 U Hyaline Cast (Auto) 0 /lpf (0-5) 07/10/21 17:06 U Epithel Cells (Auto) >30 /lpf (0-5) H 07/10/21 17:06 Urine Bacteria (Auto) 1+ (Negative) H 07/10/21 17:06
[2021-07-11] MEDS ORDERED: INDOMETHACIN 50 MG SUPP PR ONE (14:05)
[2021-07-11] MEDS ORDERED: fentaNYL citrate 100 MCG/2 ML VIAL ONE (14:05)
[2021-07-11] MEDS ORDERED: MIDAZOLAM HCL 1 MG/ML 2ML VIAL ONE (14:05)
--- NOTE | 2021-07-11 14:06 | History & Physical Bridge Note ---
Date of Service July 11, 2021 History & Physical Bridge Note I have examined the patient, reviewed the History & Physical and in the interval since the performance of the History & Physical I have noted the following changes of clinical significance: no changes noted. I saw and evaluated the patient. She presented with abdominal pain and was found to have a significant elevation of her bilirubin at an outside facility. Endoscopic ultrasound and upper endoscopy have been requested as part of a precholecystectomy evaluation. If the patient is found to have common bile duct stones during endoscopic ultrasound we will proceed with ERCP this afternoon. We have discussed the risks of the procedures to include bleeding, infection, perforation, pain, pancreatitis and in the event of ERCP, failed biliary cannulation.
--- NOTE | 2021-07-11 14:26 | GI REPORT ---
Patient Name: Radha Jimenez Procedure Date: 07/11/2021 1:36 PM Date of : 1990 Admit Type: Inpatient Age: 31 Gender: Female Attending MD: Nichole Moreno DO Procedure: Upper GI endoscopy Providers: Nichole Moreno DO Referring MD: Carl Loo Indications: Epigastric abdominal pain, Abdominal pain in the right upper quadrant Medicines: General Anesthesia Complications: No immediate complications. Estimated blood loss: Minimal. Estimated Blood Loss: Estimated blood loss was minimal. Procedure: Pre-Anesthesia Assessment: - Prior to the procedure, a History and Physical was performed, and patient medications, allergies and sensitivities were reviewed. The patient's tolerance of previous anesthesia was reviewed. - The risks and benefits of the procedure and the sedation options and risks were discussed with the patient. All questions were answered and informed consent was obtained. - Patient identification and proposed procedure were verified prior to the procedure by the physician, the nurse and the manager stone. The procedure was verified in the procedure room. - Pre-procedure physical examination revealed no contraindications to sedation. - ASA Grade Assessment: II - A patient with mild systemic disease. - After reviewing the risks and benefits, the patient was deemed in satisfactory condition to undergo the procedure. - The anesthesia plan was to use general anesthesia. - Immediately prior to administration of medications, the patient was re-assessed for adequacy to receive sedatives. - The heart rate, respiratory rate, oxygen saturations, blood pressure, adequacy of pulmonary ventilation, and response to care were monitored throughout the procedure. - The physical status of the patient was re-assessed after the procedure. After obtaining informed consent, the endoscope was passed under direct vision. Throughout the procedure, the patient's blood pressure, pulse, and oxygen saturations were monitored continuously. The Endoscope was introduced through the mouth, and advanced to the third part of duodenum. The upper GI endoscopy was accomplished without difficulty. The patient tolerated the procedure well. Findings: The examined esophagus was normal. The Z-line was regular and was found 35 cm from the incisors. The entire examined stomach was normal. The examined duodenum was normal. Impression: - Normal esophagus. - Z-line regular, 35 cm from the incisors. - Normal stomach. - Normal examined duodenum. - No specimens collected. Recommendation: - Perform an upper endoscopic ultrasound (UEUS) today. Nichole Moreno D.O. Nichole Moreno, 07/11/2021 2:26:07 PM This report has been signed electronically. Note Initiated On: 07/11/2021 1:36 PM Number of Addenda: 0 I attest to the content of the Intraoperative Record and orders documented therein, exceptions below {[id number]}
--- NOTE | 2021-07-11 14:39 | GI REPORT ---
Patient Name: Radha Jimenez Procedure Date: 07/11/2021 1:25 PM Date of : 1990 Admit Type: Inpatient Age: 31 Gender: Female Attending MD: Nichole Moreno DO Procedure: Upper EUS Providers: Nichole Moreno DO Referring MD: Carl Loo Indications: Elevated liver enzymes, Suspected choledocholithiasis Medicines: General Anesthesia Complications: No immediate complications. Estimated blood loss: Minimal. Estimated Blood Loss: Estimated blood loss: Minimal. Procedure: Pre-Anesthesia Assessment: - Prior to the procedure, a History and Physical was performed, and patient medications, allergies and sensitivities were reviewed. The patient's tolerance of previous anesthesia was reviewed. - The risks and benefits of the procedure and the sedation options and risks were discussed with the patient. All questions were answered and informed consent was obtained. - Patient identification and proposed procedure were verified prior to the procedure by the physician, the nurse and the plant operator helper. The procedure was verified in the procedure room. - Pre-procedure physical examination revealed no contraindications to sedation. - ASA Grade Assessment: II - A patient with mild systemic disease. - After reviewing the risks and benefits, the patient was deemed in satisfactory condition to undergo the procedure. - The anesthesia plan was to use general anesthesia. - Immediately prior to administration of medications, the patient was re-assessed for adequacy to receive sedatives. - The heart rate, respiratory rate, oxygen saturations, blood pressure, adequacy of pulmonary ventilation, and response to care were monitored throughout the procedure. - The physical status of the patient was re-assessed after the procedure. After obtaining informed consent, the endoscope was passed under direct vision. Throughout the procedure, the patient's blood pressure, pulse, and oxygen saturations were monitored continuously. The Scope was introduced through the mouth, and advanced to the second part of duodenum. The upper EUS was accomplished without difficulty. The patient tolerated the procedure well. Findings: ENDOSONOGRAPHIC FINDING: : One stone was visualized endosonographically in the common bile duct. It was hyperechoic. There was dilation in the common bile duct which measured up to 6 mm. Multiple stones were visualized endosonographically in the gallbladder. The stones were irregular. They were hyperechoic and characterized by shadowing. There was dilation in the gallbladder which measured up to 40 mm. There was no sign of significant endosonographic abnormality in the visualized portion of the liver. Homogeneous parenchyma, no focal pathology and no masses were identified. There was no sign of significant endosonographic abnormality in the entire pancreas. The pancreatic duct measured up to 2 mm in diameter. No masses, no cysts, the pancreatic duct was thin in caliber. No lymphadenopathy seen. Impression: - One stone was visualized endosonographically in the common bile duct. - There was dilation in the common bile duct which measured up to 6 mm. - Multiple stones were visualized endosonographically in the gallbladder. - There was dilation in the gallbladder which measured up to 40 mm. - There was no evidence of significant pathology in the visualized portion of the liver. - There was no sign of significant pathology in the entire pancreas. - No specimens collected. Recommendation: - Perform an ERCP today. Nichole Moreno D.O. Nichole Moreno, 07/11/2021 2:39:03 PM This report has been signed electronically. Note Initiated On: 07/11/2021 1:25 PM Number of Addenda: 0 I attest to the content of the Intraoperative Record and orders documented therein, exceptions below {[id number]}
[2021-07-11] MEDS ORDERED: LIDOCAINE 2% 2 ML VIAL/AMP(20MG/ML) INFIL ONE (14:45)
[2021-07-11] MEDS ORDERED: ONDANSETRON INJ 2 MG/ML 2 ML VIAL ONE (14:45)
[2021-07-11] MEDS ORDERED: DEXAMETHASONE SOD INJ 4 MG/ML VIAL ONE (14:45)
[2021-07-11] MEDS ORDERED: SUCCINYLCHOLINE CHLORIDE 20 MG/ML 10 ML VIAL IV ONE (14:45)
[2021-07-11] MEDS ORDERED: PROPOFOL IV EMULSION 10 MG/ML 20 ML VIAL IV ONE ×3 (14:45)
--- NOTE | 2021-07-11 15:24 | Post Operative Brief Note ---
Immediate Post Op Note v1 Date of Surgery July 11, 2021 Pre & Post Diagnosis Operation Date: 07/11/21 07:00 Pre-Op Diagnosis: Cholelithiasis Abnomral Liver Function Test Post-Op Diagnosis: Cholelithiasis Abnomral Liver Function Test Common bile duct stones I identified the patient and participated in the time-out.: Yes Procedure Operation Date: 07/11/21 07:00 Actual Procedures p Endoscopic Ultrasonography Upper, Endoscopic Retrograde Cholangiopancreatography, Esophagogastroduodenoscopy(Not Applicable) - Nichole Moreno DO s Endoscopic Retrograde Cholangiopancreatogram - Nichole Moreno DO Operation Date: 07/12/21 13:00 <No data on this case meets the specified criteria> Surgeon Nichole Moreno DO Computer Systems Information Director none Estimated Blood Loss 0 Findings Consistent with Post-Op Diagnosis
--- NOTE | 2021-07-11 15:25 | Communication Note ---
Date of Service: July 11, 2021 The patient underwent ERCP this afternoon after she was found to have choledocholithiasis during endoscopic ultrasound. The procedure was somewhat difficult due to papillary stenosis. We did leave a prophylactic pancreatic stent, a biliary stent was also placed. Recommendations Avoid nonsteroidals for 1 week N.p.o. tonight Continue IV hydration Watch for signs of pancreatitis Continue antibiotic course for total of 10 days Cholecystectomy per general surgery Repeat ERCP for biliary stent removal in 6 to 8 weeks
[2021-07-11] MEDS ORDERED: GLUCAGON FOR INJ 1 MG VIAL ONE (15:38)
--- NOTE | 2021-07-11 15:38 | GI REPORT ---
Patient Name: Radha Jimenez Procedure Date: 07/11/2021 1:36 PM Date of : 1990 Admit Type: Inpatient Age: 31 Gender: Female Attending MD: Nichole Moreno DO Procedure: ERCP Providers: Nichole Moreno DO Referring MD: Carl Loo Indications: Abdominal pain of suspected biliary origin, Abnormal endoscopic ultrasound of the biliary system, Elevated liver enzymes Medicines: General Anesthesia Complications: No immediate complications. Estimated blood loss: Minimal. Estimated Blood Loss: Estimated blood loss was minimal. Procedure: Pre-Anesthesia Assessment: - Prior to the procedure, a History and Physical was performed, and patient medications, allergies and sensitivities were reviewed. The patient's tolerance of previous anesthesia was reviewed. - The risks and benefits of the procedure and the sedation options and risks were discussed with the patient. All questions were answered and informed consent was obtained. - Patient identification and proposed procedure were verified prior to the procedure by the physician, the nurse and the director of customer acquisition. The procedure was verified in the procedure room. - Pre-procedure physical examination revealed no contraindications to sedation. - ASA Grade Assessment: II - A patient with mild systemic disease. - After reviewing the risks and benefits, the patient was deemed in satisfactory condition to undergo the procedure. - The anesthesia plan was to use general anesthesia. - Immediately prior to administration of medications, the patient was re-assessed for adequacy to receive sedatives. - The heart rate, respiratory rate, oxygen saturations, blood pressure, adequacy of pulmonary ventilation, and response to care were monitored throughout the procedure. - The physical status of the patient was re-assessed after the procedure. After obtaining informed consent, the scope was passed under direct vision. Throughout the procedure, the patient's blood pressure, pulse, and oxygen saturations were monitored continuously. The Scope was introduced through the mouth, and advanced to the duodenum and used to inject contrast into the bile duct. The patient tolerated the procedure well. The ERCP was technically difficult and complex due to challenging cannulation. Successful completion of the procedure was aided by performing the maneuvers documented (below) in this report. Findings: The bench hand film was normal. The esophagus was successfully intubated under direct vision without detailed examination of the pharynx, larynx, and associated structures, and upper GI tract. The upper GI tract was grossly normal. The biliary tree could not be cannulated with a Omni Sphinctertome and 0.035 in Guidewire as major papilla was small. This was switched to an Rx 39 and 0.025 angled acrobat 2 guidewire. After several attempts, the ventral pancreatic duct was inadvertently cannulated with the short-nosed traction sphincterotome and guidewire without any complications. The wire was left in place to aid in biliary cannulation and later place a prophylactic pancreatic stent. The bile duct was then deeply cannulated with the short-nosed traction sphincterotome (Rx 39) and a 0.025 in Acrobat 2 guidewire. Contrast was injected. I personally interpreted the bile duct images. Contrast extended to the hepatic ducts. The lower third of the main bile duct contained filling defect(s) thought to be a stone. The biliary orifice was stenotic. This appeared benign. The cystic duct was not patent and the gallbladder was not visualized. A biliary sphincterotomy was made with a monofilament Fusion OMNI sphincterotome using ERBE electrocautery. There was no post-sphincterotomy bleeding. To discover objects, the biliary tree was swept with an 11.5 mm balloon starting at the bifurcation. Sludge was swept from the duct. Two stones were removed. No stones remained. One 10 Fr by 7 cm biliary stent with a single external flap and a single internal flap was placed 7 cm into the common bile duct. Bile flowed through the stent. The stent was in good position. One 5 Fr by 7 cm pancreatic stent with a full external pigtail and no internal flaps was placed 7 cm into the ventral pancreatic duct. Clear fluid flowed through the stent. The stent was in good position. The endoscope was withdrawn from the patient. The total fluoroscopy exposure time was 1 minute and 29 seconds. Indomethacin 100 mg was given via suppository to decrease the risk of post-ERCP pancreatitis (PEP). Impression: - The major papilla appeared to be small. - Biliary papillary stenosis, benign. - Choledocholithiasis was found. Complete removal was accomplished by biliary sphincterotomy and balloon extraction. - A biliary sphincterotomy was performed. - One prophylactic pancreatic stent was placed into the ventral pancreatic duct. - Indomethacin given to decrease risk of post-ERCP pancreatitis. Recommendation: - Avoid aspirin and nonsteroidal anti-inflammatory medicines for 1 week. - NPO today. - Use broad spectrum antibiotics for 10 days. - Repeat ERCP in 6 weeks to remove stent. - Cholecystectomy per General surgery. Nichole Moreno D.O. Nichole Moreno, 07/11/2021 3:38:15 PM This report has been signed electronically. Note Initiated On: 07/11/2021 1:36 PM Number of Addenda: 0 I attest to the content of the Intraoperative Record and orders documented therein, exceptions below {[id number]}
--- NOTE | 2021-07-11 15:38 | Fluoroscopy Report ---
[place] ERCP biliary ductal CLINICAL INDICATION: [place] ^W/EUS/EGD. TECHNIQUE: 10 views were obtained with the C-arm in the OR with the above procedure. Total fluoroscop y time was 86.1 seconds. Total skin dose was 17.61 mGy. Comparison: None available at the time of this dictation. FINDINGS/IMPRESSION: Multiple intraoperative images of ERCP and stent placement were obtained. Please correlate with intraoperative fluoroscopy and operative report. ACT 112: Negative or not required by law. Electronically signed by: Benja Lam M.D. 07/11/2021 3:36 PM
--- NOTE | 2021-07-11 15:52 | Anesthesiology Progress Note ---
Date of Service July 11, 2021 Anesthesia Post Procedure Vital Signs Vital Signs: Temp Pulse Pulse Pulse Resp BP BP 07/11/21 15:40 95 H 16 134/80 07/11/21 15:30 36.0 C L 85 15 139/70 07/11/21 13:26 36.9 C 90 18 132/83 07/11/21 07:04 36.9 C 81 16 112/72 07/10/21 22:54 36.8 C 84 18 143/89 H 07/10/21 22:16 36.9 C 105 H 18 152/95 H 07/10/21 21:00 88 17 134/89 07/10/21 20:30 89 25 H 133/89 07/10/21 20:00 98 H 23 132/94 07/10/21 19:30 86 18 127/86 07/10/21 19:00 124/85 07/10/21 18:30 126/86 07/10/21 17:30 88 17 118/80 07/10/21 17:03 88 15 139/86 Pulse Ox 07/11/21 15:40 100 07/11/21 15:30 100 07/11/21 13:26 96 07/11/21 07:04 98 07/10/21 22:54 97 07/10/21 22:16 91 07/10/21 21:00 100 07/10/21 20:30 100 07/10/21 20:00 97 07/10/21 19:30 100 07/10/21 19:00 07/10/21 18:30 07/10/21 17:30 100 07/10/21 17:03 100 Pain Intensity Head: Pain Intensity: 2 Transfer of Care Handoff Completed per policy Notes Mental Status: alert / awake / arousable Patient Amnestic to Procedure: Yes Nausea / Vomiting: adequately controlled Pain: adequately controlled Airway Patency, RR, SpO2: stable & adequate BP & HR: stable & adequate Hydration State: stable & adequate Anesthetic Complications: no major complications apparent and Pt Satisfied with anesthetic care
--- NOTE | 2021-07-11 16:52 | Anesthesiology Consultation ---
Date of Service July 11, 2021 Assessment & Plan (1) Encounter for pre-operative examination: Chart Review Chart Review: Acceptable Risk for Surgery and Patient NOT seen in Pre Admission Testing Consults Requested none History Surgery Operation Date: 07/11/21 07:00 Proposed Procedures p Endoscopic Ultrasonography Upper - Nichole Moreno DO s Endoscopic Retrograde Cholangiopancreatogram - Nichole Moreno DO Operation Date: 07/12/21 13:00 Proposed Procedures p Laparoscopic Cholecystectomy, Possible Cholangiogram, Possible Open - Perry Sherlyn Groves DO Height/Weight Height: 5 ft Weight: 74.8 kg Allergies Allergy/AdvReac Type Severity Reaction Status Date / Time Sulfa (Sulfonamide Allergy Intermediate HIVES Verified 07/10/21 18:42 Antibiotics) tramadol Allergy Intermediate GI SYMPTOMS Verified 07/10/21 18:42 Medications Home Medications Medication Instructions Recorded Confirmed Last Taken buprenorphine 8 mg-naloxone 2 mg 1 ea BUCCAL BID #1 ea 03/26/19 07/10/21 Unknown sublingual film (Suboxone) amitriptyline 10 mg tablet 10 mg PO BID #60 tab 06/01/19 07/10/21 Unknown hydroxyzine HCl 50 mg tablet 50 mg PO Q8H PRN #90 tab 06/01/19 07/10/21 Unknown buspirone 10 mg tablet 10 mg PO BID 08/12/19 07/10/21 Unknown sertraline 100 mg tablet 200 mg PO QAM tab 08/12/19 07/10/21 Unknown drospirenone 3 mg-ethinyl 1 tab PO DAILY #112 tab 10/25/20 07/10/21 Unknown estradiol 0.02 mg tablet (Britta (28)) amitriptyline 100 mg tablet 200 mg PO HS 07/10/21 07/10/21 Unknown amitriptyline 50 mg tablet 50 mg PO HS 07/10/21 07/10/21 Unknown bupropion HCl 100 mg tablet,12 hr 100 mg PO QAM 07/10/21 07/10/21 Unknown sustained-release (Wellbutrin SR) omeprazole 40 mg capsule,delayed 40 mg PO QAM 07/10/21 07/10/21 Unknown release ropinirole 1 mg tablet 1 mg PO HS 07/10/21 07/10/21 Unknown Active Medications Generic Name Dose Route Start Last Admin Trade Name Freq PRN Reason Stop Dose Admin Acetaminophen 650 mg 07/10/21 22:13 07/10/21 22:42 Acetaminophen 325 Mg Tab PO 08/09/21 22:12 650 mg Q4H PRN Administration pain/fever Acetaminophen 1,000 mg 07/11/21 10:54 07/11/21 12:35 Acetaminophen 1000 Mg/100 Ml Iv IV 07/14/21 10:53 1,000 mg Q8H PRN Administration fever or headache Amitriptyline HCl 50 mg 07/10/21 22:13 07/10/21 22:43 Amitriptyline Hcl 50 Mg Tab PO 08/09/21 22:12 50 mg HS RONNA Administration Amitriptyline HCl 200 mg 07/10/21 22:13 07/10/21 22:43 Amitriptyline Hcl 100 Mg Tab PO 08/09/21 22:12 200 mg HS RONNA Administration Amitriptyline HCl 10 mg 07/11/21 09:00 07/11/21 16:46 Amitriptyline Hcl 10 Mg Tab PO 08/10/21 08:59 10 mg BID@0900,1400 RONNA Administration Buprenorphine/Naloxone 1 tab 07/10/21 22:13 07/11/21 08:51 Buprenorphine/Naloxone 8/2 Mg Tab SL 08/09/21 22:12 1 tab BID RONNA Administration Bupropion HCl 100 mg 07/11/21 09:00 07/11/21 08:52 Bupropion Sr 100 Mg Tabcr PO 08/10/21 08:59 100 mg QAM RONNA Administration Buspirone HCl 10 mg 07/10/21 22:13 07/11/21 08:53 Buspirone 5 Mg Tab PO 08/09/21 22:12 10 mg BID RONNA Administration Piperacillin Sod/Tazobactam 115 mls @ 28.75 mls/hr 07/11/21 00:00 07/11/21 16:49 Sod 3.375 gm/ Dextrose IV 07/21/21 00:00 28.8 mls/hr Q8H RONNA Administration Protocol Pantoprazole Sodium 40 mg/ 10 mls @ 5 mls/min 07/11/21 11:00 07/11/21 10:55 Syringe IV 08/10/21 10:59 5 mls/min DAILY@1100 RONNA Administration Nicotine 14 mg 07/11/21 10:15 07/11/21 10:55 Nicotine 14 Mg/24 Hr Patch TD 08/10/21 10:14 14 mg QAM RONNA Administration Ropinirole HCl 1 mg 07/10/21 22:13 07/10/21 22:43 Ropinirole Hcl 1 Mg Tablet PO 08/09/21 22:12 1 mg HS RONNA Administration Sertraline HCl 200 mg 07/11/21 09:00 07/11/21 08:52 Sertraline Hcl 100 Mg Tablet PO 08/10/21 08:59 200 mg QAM RONNA Administration NPO Date Last Intake of Fluids: 07/11/21 Time Last Intake of Fluids: 08:30 Date Last Intake of Solids: 07/11/21 Time Last Intake of Solids: 08:30 Last Intake of Solids Comment: celestina Past Medical History Medical History Anemia Anxiety Common migraine Depression Drug addiction External hemorrhoids Opioid abuse, in remission Sleep disturbances Smoker Past Family History Family History Father Hypertension Sister Hypertension Denies family history of Pancreatic cancer Ovarian cancer Prostate cancer Breast cancer Colorectal cancer Uterine cancer Past Surgical History Surgical History S/P tonsillectomy Social History Smoking Status: Current every day smoker tobacco type: cigarettes Smoking cigarettes per day: 1/2 pack Do You Dip or Chew Tobacco: No Hx Alcohol Use: No Hx Substance Use: Yes substance use type: marijuana Substance Use Type Other:: Medical card Physical Exam Vital Signs Last Vital Signs Temp 37.3 C 07/11/21 16:48 Pulse 86 07/11/21 16:00 Resp 16 07/11/21 16:48 BP 118/71 07/11/21 16:48 Pulse Ox 93 07/11/21 16:48 Testing Laboratory Results 07/11/21 07:20 07/11/21 07:20 PT 9.7 Seconds (9.0-12.0) 07/11/21 12:01 INR 1.0 (0.9-1.1) 07/11/21 12:01 Urine Color Dark Yellow 07/10/21 17:06 Urine Appearance Cloudy (Clear) A 07/10/21 17:06 Urine pH 6.5 (4.5-7.5) 07/10/21 17:06 Ur Specific [place] 1.012 (1.000-1.030) 07/10/21 17:06 Urine Protein Negative (Negative) 07/10/21 17:06 Urine Glucose (UA) Negative (Negative) 07/10/21 17:06 Urine Ketones Negative (Negative) 07/10/21 17:06 Urine Nitrite Positive (Negative) A 07/10/21 17:06 Ur Leukocyte Esterase Trace (Negative) H 07/10/21 17:06 Urine WBC (Auto) 10-30 /hpf (0-5) H 07/10/21 17:06 Urine RBC (Auto) 0-4 /hpf (0-4) 07/10/21 17:06 U Hyaline Cast (Auto) 0 /lpf (0-5) 07/10/21 17:06 U Epithel Cells (Auto) >30 /lpf (0-5) H 07/10/21 17:06 Urine Bacteria (Auto) 1+ (Negative) H 07/10/21 17:06 07/10/21 17:06 Urine Culture - Preliminary Urine,Clean Catch Pin-point growth present, reincubating.
[2021-07-11] MEDS: LACTATED RINGER'S 1,000 ML IV SCH (16:53)
[2021-07-11] MEDS ORDERED: POTASSIUM CHLORIDE CRTAB 20 MEQ TABCR PO STA (17:01)
[2021-07-11] MEDS: rOPINIRole HCL 1 MG TABLET PO SCH (20:09)
[2021-07-11] MEDS: AMITRIPTYLINE HCL 50 MG TAB PO SCH (20:09)
[2021-07-11] MEDS: AMITRIPTYLINE HCL 100 MG TAB PO SCH (20:10)
[2021-07-12] MEDS: LACTATED RINGER'S 1,000 ML IV SCH ×3 (03:09→22:35)
[2021-07-12 07:15] LABS: Basophils # (auto) 0.01 K/uL (0-0.2); Basophils % (auto) 0.1 %; Eosinophils # (auto) 0.01 K/uL (0-0.5); Eosinophils % (auto) 0.1 %; Hematocrit (blood only) 34.2 % (37-47); Hemoglobin 11.5 g/dL (12.0-16.0); Immature Granulocytes # (auto) 0.02 K/uL (0.00-0.02); Immature Granulocytes % (auto) 0.2 %; Lymphocytes % (auto) 24.8 %; Mean Corpuscular Hemoglobin 27.3 pg (25-34); Mean Corpuscular Hgb Conc 33.6 g/dL (32-36); Mean Corpuscular Volume 81.2 fL (80-100); Mean Platelet Volume 11.1 fL (7.4-10.4); Monocytes # (auto) 0.48 K/uL (0.11-0.59); Monocytes % (auto) 5.4 %; Neutrophils # (auto) 6.14 K/uL (1.4-6.5); Neutrophils % (auto) 69.4 %; Platelet Count 295 K/uL (130-400); RDW Coefficient of Variation 13.5 % (11.5-14.5); RDW Standard Deviation 40.2 fL (36.4-46.3); Red Blood Count 4.21 M/uL (4.2-5.4); White Blood Count 8.86 K/uL (4.8-10.8)
[2021-07-12] MEDS: PIPERACILLIN/TAZOBACTAM 3.375 GM in DEXTROSE 5% 100 ML IV SCH ×3 (07:48→23:44)
[2021-07-12] MEDS: AMITRIPTYLINE HCL 10 MG TAB PO SCH (07:49)
[2021-07-12] MEDS: SERTRALINE HCL 100 MG TABLET PO SCH (07:50)
[2021-07-12] MEDS: busPIRone 5 MG TAB PO SCH (07:50)
[2021-07-12] MEDS: BUPRENORPHINE/NALOXONE 8/2 MG TAB SL SCH (07:50)
[2021-07-12] MEDS: buPROPion SR 100 MG TABCR PO SCH (07:50)
[2021-07-12] MEDS: NICOTINE 14 MG/24 HR PATCH TD SCH (07:50)
[2021-07-12 08:13] LABS: Albumin Globulin Ratio 0.8 (0.9-2); Albumin Level 3.1 gm/dl (3.4-5.0); BUN Creatinine Ratio 7.3 (10-20); Bilirubin,Total 0.5 mg/dl (0.2-1); Creatinine Clr Calc Pharmacy 116.1 ml/min; Est GFR (African American) 138.8 ml/min; Est GFR (Non-African American) 119.7 ml/min; Globulin 3.9 gm/dl (2.5-4.0); Magnesium 1.9 mg/dl (1.8-2.4); Potassium 3.9 mmol/L (3.5-5.1)
--- NOTE | 2021-07-12 08:33 | Hospitalist Progress Note ---
Date of Service July 12, 2021 Assessment & Plan (1) Post-ERCP acute pancreatitis: Plan: 2nd to ERCP done yesterday for choledocholithiasis with biliary stent placed (will need f/u 6-8 wks for removal) LFTs improving, however elevated to Lipase 803 Increased LR to 150cc/hr NPO Pain control -- morphine added prn, avoiding NSAIDs Zosyn for choledocholithiasis as below x 10day total course can be with PO when able to take Initially planned torie today, however developed worsening epigastric discomfort and discussed with general surgery and will plan for in control/IVF and monitor on AM labs with tentative torie now for tomorrow Labs in AM (2) Choledocholithiasis: Plan: as seen during ERCP yesterday Stents placed avoiding NSAIDs for a week (no further toradol) Will need f/u 6-8 weeks for removal w/ GI LFTs improving --> T bili 0.5 down from 1.5. AST 129 from 243 . ALT 231 from 266. ALP 237 from 243 Remains NPO for OR today for torie w/ General Surgery, however with increased epigastric discomfort as above now with post-ERCP pancreatitis IVF, pain control as above with plans for OR tomorrow (3) Cholelithiasis: Plan: Noted from [facility] per previous imaging before signing out AMA to come to [facility] Suspected passing stones w elevated LFTs ERCP as above, now with post-ERCP pancreatitis Continue Zosyn for now, plan total abx course 10days as above Plans for OR tomorrow for Torie with Dr. Groves as discussed (4) Abdominal pain: Plan: Suspect secondary to above Now with pancreatitis Added morphine prn as avoiding NSAIDs (5) Depression: Plan: Continue Amitriptyline, Buspirone, Bupropion, and sertraline --> holding as NPO for pancreatitis but resume when able (6) Anxiety: Plan: As above (7) History of prescription drug abuse: Plan: Previous abuse in [id number] - remains on Suboxone (on hold as NPO but can be continued when able) Also 1/2 pack/day smoker and requested nicotine patchordered. Recommend smoking cessation (8) Abnormal urinalysis: Plan: (+) LE, (+) nitrite, EPI>30, bacteria 1+- asymptomatic - will be on Zosyn for GI coverage - can resend at discharge if warranted/or symptomatic Urine cx more than 3 organisms, mixed probable magdy, FINAL Plan: NPO, IVF hydration and pain control for pancreatitis Plans for OR tomorrow for torie Admission and Anticipated Discharge Date Admission Date: July 10, 2021 Supervising Physician Co-Signing Physician Notes Attending Attestation - Chart reviewed in detail, care plan d/w SURY Floyd. I agree w/ the valladares components of her documentation. s/p ERCP yesterday with choledocholithiasis - s/p retrieval of stones/sludge with placement of CBD stent & pancreatic duct stent. No cholangitis seen. Today = worsening abd pain, lipase elevated, thus post-ERCP acute pancreatitis. Lap torie deferred for today. IV fluids, pain control for pancreatitis. Carl Loo MD Subjective Seen this morning. Feeling alright but worsened abd pain but now in epigastric region. Discussed possible pancreatitis. Lipase already added by surgery, elevated. Discussed will increase IVF and provide pain control. Unable to use toradol but would be willing to try tramadol. Will hold off on orals give pancreatitis and order morphine prn and hold the suboxone for now while NPO but discussed this can be continued while on morphine therapy. Will message surgery about doing today vs holding off tomorrow as it sounds based on conversation with patient and surgery that this may be post-poned until tomorrow. Passing gas but no BM. No fever, chills. Hard to take deep breath due to abd discomfort but no shortness of breath or hypoxia. No vomiting or dysuria reported. Questions/concerns addressed at this time, Review of Systems Review of Systems: All systems reviewed & are unremarkable except as noted in HPI & below Physical Exam Physical Exam: PHYSICAL EXAM: General: awake, alert, laying on side curled up but not in any acute distrss. reported epigastric pain Head normocephalic, atraumatic ENT: mmm, trachea midline and without deviation Resp: CTAB, no w/c/r CV: RRR, no m/r/g or edema appreciated GI: +BS, soft, tender to palpation (epigastric > RUQ), voluntary guarding on palpation of epigastric region : no govea Psych; AOx4 skin: warm, dry Results & Data Results & Data ([facility]) Vital Signs (Past 12 Hours) Vital Signs Temp Pulse Resp BP Pulse Ox 07/12/21 07:17 37 C 80 16 136/86 99 07/12/21 02:51 37.0 C 79 18 127/83 96 07/11/21 23:30 36.6 C 95 H 18 129/78 100 Laboratory Results 07/12/21 07/12/21 07/12/21 Range/Units 06:54 06:54 06:54 WBC 8.86 (4.8-10.8) K/uL RBC 4.21 (4.2-5.4) M/uL Hgb 11.5 L (12.0-16.0) g/dL Hct 34.2 L (37-47) % MCV 81.2 (80-100) fL MCH 27.3 (25-34) pg MCHC 33.6 (32-36) g/dL RDW Std Deviation 40.2 (36.4-46.3) fL RDW Coeff of Kinza 13.5 (11.5-14.5) % Plt Count 295 (130-400) K/uL MPV 11.1 H (7.4-10.4) fL Immature Gran % (Auto) 0.2 % Neut % (Auto) 69.4 % Lymph % (Auto) 24.8 % [place] % (Auto) 5.4 % Eos % (Auto) 0.1 % Baso % (Auto) 0.1 % Neut # (Auto) 6.14 (1.4-6.5) K/uL Lymph # (Auto) 2.20 (1.2-3.4) K/uL [place] # (Auto) 0.48 (0.11-0.59) K/uL Eos # (Auto) 0.01 (0-0.5) K/uL Baso # (Auto) 0.01 (0-0.2) K/uL Immature Gran # (Auto) 0.02 (0.00-0.02) K/uL PT (9.0-12.0) Seconds INR (0.9-1.1) Sodium 139 (136-145) mmol/L Potassium 3.9 D (3.5-5.1) mmol/L Chloride 107 (98-107) mmol/L Carbon Dioxide 25 (21-32) mmol/L Anion Gap 7.0 (3-11) BUN 5 L (7-18) mg/dl Creatinine 0.64 (0.6-1.2) mg/dl Est Cr Clr Drug Dosing 116.1 ml/min Est GFR ( Amer) 138.8 ml/min Est GFR (Non-Af Amer) 119.7 ml/min BUN/Creatinine Ratio 7.3 L (10-20) Glucose 89 (70-99) mg/dl Calcium 9.0 (8.5-10.1) mg/dl Magnesium 1.9 (1.8-2.4) mg/dl Total Bilirubin 0.5 D (0.2-1) mg/dl AST 129 H (15-37) U/L ALT 231 H (12-78) U/L Alkaline Phosphatase 237 H (45-117) U/L Total Protein 7.0 (6.4-8.2) gm/dl Albumin 3.1 L (3.4-5.0) gm/dl Globulin 3.9 (2.5-4.0) gm/dl Albumin/Globulin Ratio 0.8 L (0.9-2) Lipase 803 H (73-393) U/L 07/11/21 Range/Units 12:01 WBC (4.8-10.8) K/uL RBC (4.2-5.4) M/uL Hgb (12.0-16.0) g/dL Hct (37-47) % MCV (80-100) fL MCH (25-34) pg MCHC (32-36) g/dL RDW Std Deviation (36.4-46.3) fL RDW Coeff of Kinza (11.5-14.5) % Plt Count (130-400) K/uL MPV (7.4-10.4) fL Immature Gran % (Auto) % Neut % (Auto) % Lymph % (Auto) % [place] % (Auto) % Eos % (Auto) % Baso % (Auto) % Neut # (Auto) (1.4-6.5) K/uL Lymph # (Auto) (1.2-3.4) K/uL [place] # (Auto) (0.11-0.59) K/uL Eos # (Auto) (0-0.5) K/uL Baso # (Auto) (0-0.2) K/uL Immature Gran # (Auto) (0.00-0.02) K/uL PT 9.7 (9.0-12.0) Seconds INR 1.0 (0.9-1.1) Sodium (136-145) mmol/L Potassium (3.5-5.1) mmol/L Chloride (98-107) mmol/L Carbon Dioxide (21-32) mmol/L Anion Gap (3-11) BUN (7-18) mg/dl Creatinine (0.6-1.2) mg/dl Est Cr Clr Drug Dosing ml/min Est GFR ( Amer) ml/min Est GFR (Non-Af Amer) ml/min BUN/Creatinine Ratio (10-20) Glucose (70-99) mg/dl Calcium (8.5-10.1) mg/dl Magnesium (1.8-2.4) mg/dl Total Bilirubin (0.2-1) mg/dl AST (15-37) U/L ALT (12-78) U/L Alkaline Phosphatase (45-117) U/L Total Protein (6.4-8.2) gm/dl Albumin (3.4-5.0) gm/dl Globulin (2.5-4.0) gm/dl Albumin/Globulin Ratio (0.9-2) Lipase (73-393) U/L Diagnostic Findings Endo Retro Cholangiopancreatogram 07/11/21 14:00 [place] ERCP biliary ductal CLINICAL INDICATION: [place] ^W/EUS/EGD. TECHNIQUE: 10 views were obtained with the C-arm in the OR with the above procedure. Total fluoroscopy time was 86.1 seconds. Total skin dose was 17.61 mGy. Comparison: None available at the time of this dictation. FINDINGS/IMPRESSION: Multiple intraoperative images of ERCP and stent placement were obtained. Please correlate with intraoperative fluoroscopy and operative report. ACT 112: Negative or not required by law. Electronically signed by: Benja Lam M.D. 07/11/2021 3:36 PM PG Care Time/CCT Total # of Minutes Spent Total Time Spent with Patient: Total time spent is greater than 50% in coordination of care (as documented) at patient's floor/unit and/or counseling patient: Coding Level of Care Code 81846 Subseq Hosp Care Lvl 3 Diagnoses Cholelithiasis K80.20 Biliary obstruction: without biliary obstruction Cholecystitis presence: without cholecystitis Cholelithiasis location: gallbladder Abdominal pain R10.11 Abdominal location: right upper quadrant Depression F32.9 Anxiety F41.9 History of prescription drug abuse Abnormal urinalysis R82.90 Choledocholithiasis K80.50 Post-ERCP acute pancreatitis K91.89; K85.90 (1) Abdominal pain Abdominal location: right upper quadrant Qualified Code(s): R10.11 - Right upper quadrant pain (2) Cholelithiasis Biliary obstruction: without biliary obstruction Cholecystitis presence: without cholecystitis Cholelithiasis location: gallbladder Qualified Code(s): K80.20 - Calculus of gallbladder without cholecystitis without obstruction
[2021-07-12] MEDS ORDERED: MoRPHine SULFATE 2 MG/ML CARP IV PRN ×2 (10:26→22:24)
--- NOTE | 2021-07-12 10:56 | Surgery Progress Note ---
Date of Service July 12, 2021 Assessment & Plan (1) Post-ERCP acute pancreatitis: Plan: -She has more pain this AM and Lipase is elevated -Will hold off on cholecystectomy today until her pancreatitis improves -Will tentatively plan on tomorrow -Repeat labs in AM (2) Choledocholithiasis: Admission and Anticipated Discharge Date Admission Date: July 10, 2021 Subjective Pt seen and examined. Having worsening epigastric pain since last evening. No fevers. No N/V. Review of Systems Constitutional: no fever and no chills Physical Exam Constitutional: WD/WN, vitals as above Respiratory: normal respiratory effort, lungs clear to auscultation Cardiovascular: RRR, no murmur, no edema Gastrointestinal (Abdomen): Inspection/Auscultation: abdomen normal to inspection; abdomen not distended Percussion/Palpation: + abdomen tender (Epigastric and RUQ) and abdomen soft; no guarding, abdomen not rigid and no hernia Negative Simpson's Musculoskeletal: no cyanosis or clubbing, extremities motor strength 5/5 Skin: no rashes, warm and dry Psychiatric: A+Ox3, euthymic affect Results & Data ([facility]) Vital Signs (Past 12 Hours) Vital Signs Temp Pulse Resp BP Pulse Ox 07/12/21 07:17 37 C 80 16 136/86 99 07/12/21 02:51 37.0 C 79 18 127/83 96 07/11/21 23:30 36.6 C 95 H 18 129/78 100 PG Care Time/CCT Total # of Minutes Spent Total Time Spent with Patient: Total time spent is greater than 50% in coordination of care (as documented) at patient's floor/unit and/or counseling patient: Coding Level of Care Code 38522 Subseq Hosp Care Lvl 1 Diagnoses Post-ERCP acute pancreatitis K91.89; K85.90 Choledocholithiasis K80.50
[2021-07-12] MEDS: PANTOprazole 40 MG in SYRINGE 0 ML IV SCH (11:23)
[2021-07-12] MEDS: ACETAMINOPHEN 1000 MG/100 ML IV IV PRN (13:09)
[2021-07-12] MEDS: MoRPHine SULFATE 2 MG/ML CARP IV PRN ×2 (15:36→19:19)
--- NOTE | 2021-07-12 22:28 | Communication Note ---
Date of Service: July 12, 2021 Nursing notified me that the patient was having increased pain and had an elevated BP. I added on the Morphine pain protocol with 2mg IV for moderate pain and 4mg IV for severe pain for her pancreatitis pain.
[2021-07-12] MEDS: ONDANSETRON INJ 2 MG/ML 2 ML VIAL IV PRN (23:10)
[2021-07-12] MEDS: MoRPHine SULFATE 4 MG/ML 1 ML CARP\\VIAL IV PRN (23:10)
[2021-07-13] MEDS: LACTATED RINGER'S 1,000 ML IV SCH ×3 (03:51→19:10)
[2021-07-13] MEDS: MoRPHine SULFATE 4 MG/ML 1 ML CARP\\VIAL IV PRN ×2 (06:37→20:39)
[2021-07-13 07:34] LABS: Basophils # (auto) 0.04 K/uL (0-0.2); Basophils % (auto) 0.4 %; Eosinophils % (auto) 2.1 %; Hematocrit (blood only) 36.7 % (37-47); Hemoglobin 12.1 g/dL (12.0-16.0); Immature Granulocytes # (auto) 0.01 K/uL (0.00-0.02); Immature Granulocytes % (auto) 0.1 %; Lymphocytes # (auto) 2.22 K/uL (1.2-3.4); Mean Corpuscular Hemoglobin 27.8 pg (25-34); Mean Corpuscular Volume 84.4 fL (80-100); Mean Platelet Volume 11.1 fL (7.4-10.4); Monocytes # (auto) 0.49 K/uL (0.11-0.59); Monocytes % (auto) 5.1 %; Neutrophils % (auto) 69.3 %; Platelet Count 284 K/uL (130-400); RDW Coefficient of Variation 13.7 % (11.5-14.5); RDW Standard Deviation 42.2 fL (36.4-46.3); Red Blood Count 4.35 M/uL (4.2-5.4); White Blood Count 9.66 K/uL (4.8-10.8)
[2021-07-13] MEDS: PIPERACILLIN/TAZOBACTAM 3.375 GM in DEXTROSE 5% 100 ML IV SCH ×3 (07:43→23:20)
[2021-07-13] MEDS: NICOTINE 14 MG/24 HR PATCH TD SCH (07:45)
[2021-07-13 08:06] LABS: BUN Creatinine Ratio 7.7 (10-20); Calcium 8.9 mg/dl (8.5-10.1); Creatinine Clr Calc Pharmacy 116.1 ml/min; Est GFR (African American) 138.8 ml/min; Est GFR (Non-African American) 119.7 ml/min; Magnesium 1.9 mg/dl (1.8-2.4); Potassium 3.5 mmol/L (3.5-5.1)
[2021-07-13 08:09] LABS: Albumin Globulin Ratio 0.7 (0.9-2); Bilirubin Direct 0.2 mg/dl (0-0.2); Bilirubin,Total 0.4 mg/dl (0.2-1); Globulin 4.2 gm/dl (2.5-4.0); Total Protein 7.2 gm/dl (6.4-8.2)
--- NOTE | 2021-07-13 08:21 | Hospitalist Progress Note ---
Date of Service July 13, 2021 Assessment & Plan (1) Choledocholithiasis: Plan: Cholelithiasis seen at [facility], then to go to [facility]. Signed out AMA and came here GI eval -- pt w/ elevated LFTs concerning for passing of stones Underwent ERCP 07/11 which showed choledocholithiasis, stone removed and stents placed. Avoid NSAIDs x 1 week Developed post--ERCP pancreatitis 07/12 w/ Lipase 803 and was placed on LR @ 150cc/hr, made NPO and provided pain control with leni donis moved to today To continue abx course 10 days per GI for above -- currently on Zosyn (day 3) LFTs improving --> T bili 0.5 down from 1.5. AST 129 from 243 . ALT 231 from 266. ALP 237 from 243 Lipase 364 General surgery on consult s/p leni donis with Dr. Groves today 07/13 Pain management --> SIGNIFICANT PAIN IN PACU with HTN/NAUSEA --> PACU course: fentanyl 25mcg x 3, dilaudid 0.25mg x 2, phenergan 12.5mg, labetalol 10mg, meperidine 12.5mg, droperidol 0.625mg Discussed with patient and morphine was most effective. --> Will order Morphine 6mg IV x 1 now. Continue 2-4mg IV prn pain control. Would avoid further dilaudid Repeating lipase given increased epigastric discomfort Will order scopolamine patch for nausea, dose of clonidine ordered for BP -- currently 155/106 but denied visual changes/confusion/stroke like sx. Primarily nausea/pain as above Continue to monitor (2) Hypertension: Plan: post-op --> PERSISTENTLY ELEVATED IN PACU WITH DIASTOLIC BP >100 ?pain vs medication reaction given multiple agents in PACU for pain/nausea. No prior adverse reactions w/ anesthesia BP remains elevated, currently 154/97 Clonidine 0.1x1 now Hydralazine prn Continue to monitor (3) Nausea & vomiting: Plan: post-op zofran, phenergan prn scopalamine patch ordered also attempting to get better BP control (4) Abdominal pain: Plan: Suspect secondary to above Now with pancreatitis Added morphine prn as avoiding NSAIDs WORSE POST-OP THAN BEFORE SURGERY REPORTED -- SEE ABOVE NO NEED FOR REPEAT IMAGING AT THIS TIME BUT IF WORSENS/FEVER, CONSIDER REPEAT (5) Post-ERCP acute pancreatitis: Plan: 2nd to ERCP done 07/11 for choledocholithiasis with biliary stent placed (will need f/u 6-8 wks for removal) Lipase 803 and increased IVF, resolved on AM labs With significant pain post-op and will repeat above above Continue on IVF at reduced rate but may need to increase based on results Pain control as above Liquid diet as tolerated (6) Cholelithiasis: Plan: as above. (7) Depression: Plan: Continue Amitriptyline, Buspirone, Bupropion, and sertraline --> HELD WHILE NPO FOR TODAY, RESUMED POST-OP (8) Anxiety: Plan: As above (9) History of prescription drug abuse: Plan: Previous abuse in [id number] - remains on Suboxone (on hold as NPO but can be continued when able) -- continue to hold while needing additional pain control to prevent limited effect but once improved would continue at same time with prn for breakthrough Also 1/2 pack/day smoker and requested nicotine patchordered. Recommend smoking cessation (10) Abnormal urinalysis: Plan: (+) LE, (+) nitrite, EPI>30, bacteria 1+- asymptomatic - will be on Zosyn for GI coverage - can resend at discharge if warranted/or symptomatic Urine cx more than 3 organisms, mixed probable magdy, FINAL Plan: CONTINUED INPATIENT STAY, PAIN CONTROL/HTN/NAUSEA Per surgery earlier today possible d/c for patient tomorrow however given increased pain suspect pain to remain inpatient at least until Friday. Continue to monitor Will message surgery about chemoproph to possible start tonight based on re sponse, but will continue SCDs for now Ambulation encouraged Admission and Anticipated Discharge Date Admission Date: July 10, 2021 Supervising Physician Co-Signing Physician Notes Attending Attestation - Chart reviewed in detail, care plan d/w SURY Floyd. I agree w/ the valladares components of her documentation. s/p ERCP this admission with retrieval of stones/sludge with placement of CBD stent & pancreatic duct stent. No cholangitis seen. Course complicated by post-ERCP acute pancreatitis. Lap gagandeep today. Appreciate GI & gen surg assistance. Carl Loo MD Subjective Patient evaluated this afternoon following surgery. Per discussion with general surgery, surgery went well. Although, review of course in PACU with patient with significant pain/nausea/hypertension requiring multiple agents in form of fentanyl 25mcg x 3, dilaudid 0.25mg x 2, phenergan 12.5mg, labetalol 10mg, meperidine 12.5mg, droperidol 0.625mg Patient states her main issue is nausea, second is pain. Primarily to epigastric, difficult to take a deep breath due to pain. States not much effectiveness with the Dilaudid and more effective with the morphine as overnight. Discussed scopolamine/clonidine for nausea/HTN and will order morphine 6mg x 1 now and repeat labs given increased epigastric discomfort. Discussed limited PO intake but will attempt to control symptoms first. She states had been passing gas and small amount of diarrhea last night. No fever, chills, chest pain at this time. No vomiting. Review of Systems Review of Systems: All systems reviewed & are unremarkable except as noted in HPI & below Physical Exam Physical Exam: WD/WN, laying flat in bed with emesis bag in lap answering questions appropriately eyes anicteric, pupils equal and reactive trachea midline and without deviation resp CTAB, diminished inspiratory effort due to pain, not tachypneic CV: RRR, 96bpm, no r/m/g, no edema, SCDs to b/l LE : +BS, soft but exquisitely tender to palpation diffusely however primarily to RUQ/epigastric region, voluntary guarding, surgical incisions without erythema/drainage. dressing c/d/i with some blood noted Psych: AOx4 Neuro: no focal deficit Results & Data Results & Data ([facility]) Vital Signs (Past 12 Hours) Vital Signs Temp Pulse Resp BP Pulse Ox 07/13/21 07:23 36.8 C 77 14 115/73 97 07/12/21 22:04 86 158/104 H 97 07/12/21 21:56 37.0 C 84 16 164/111 H 99 Laboratory Results 07/13/21 07/13/21 07/12/21 Range/Units 06:25 06:25 06:54 WBC 9.66 (4.8-10.8) K/uL RBC 4.35 (4.2-5.4) M/uL Hgb 12.1 (12.0-16.0) g/dL Hct 36.7 L (37-47) % MCV 84.4 (80-100) fL MCH 27.8 (25-34) pg MCHC 33.0 (32-36) g/dL RDW Std Deviation 42.2 (36.4-46.3) fL RDW Coeff of Kinza 13.7 (11.5-14.5) % Plt Count 284 (130-400) K/uL MPV 11.1 H (7.4-10.4) fL Immature Gran % (Auto) 0.1 % Neut % (Auto) 69.3 % Lymph % (Auto) 23.0 % [place] % (Auto) 5.1 % Eos % (Auto) 2.1 % Baso % (Auto) 0.4 % Neut # (Auto) 6.70 H (1.4-6.5) K/uL Lymph # (Auto) 2.22 (1.2-3.4) K/uL [place] # (Auto) 0.49 (0.11-0.59) K/uL Eos # (Auto) 0.20 (0-0.5) K/uL Baso # (Auto) 0.04 (0-0.2) K/uL Immature Gran # (Auto) 0.01 (0.00-0.02) K/uL Sodium 138 (136-145) mmol/L Potassium 3.5 (3.5-5.1) mmol/L Chloride 105 (98-107) mmol/L Carbon Dioxide 25 (21-32) mmol/L Anion Gap 7.0 (3-11) BUN 5 L (7-18) mg/dl Creatinine 0.64 (0.6-1.2) mg/dl Est Cr Clr Drug Dosing 116.1 ml/min Est GFR ( Amer) 138.8 ml/min Est GFR (Non-Af Amer) 119.7 ml/min BUN/Creatinine Ratio 7.7 L (10-20) Glucose 90 (70-99) mg/dl Calcium 8.9 (8.5-10.1) mg/dl Magnesium 1.9 (1.8-2.4) mg/dl Total Bilirubin 0.4 (0.2-1) mg/dl Direct Bilirubin 0.2 (0-0.2) mg/dl AST 103 H (15-37) U/L ALT 194 H (12-78) U/L Alkaline Phosphatase 205 H (45-117) U/L Total Protein 7.2 (6.4-8.2) gm/dl Albumin 3.0 L (3.4-5.0) gm/dl Globulin 4.2 H (2.5-4.0) gm/dl Albumin/Globulin Ratio 0.7 L (0.9-2) Lipase 364 803 H (73-393) U/L PG Care Time/CCT Total # of Minutes Spent Total Time Spent with Patient: Total time spent is greater than 50% in coordination of care (as documented) at patient's floor/unit and/or counseling patient: Coding Level of Care Code 11198 Subseq Hosp Care Lvl 3 Diagnoses Post-ERCP acute pancreatitis K91.89; K85.90 Choledocholithiasis K80.50 Cholelithiasis K80.20 Biliary obstruction: without biliary obstruction Cholecystitis presence: without cholecystitis Cholelithiasis location: gallbladder Abdominal pain R10.11 Abdominal location: right upper quadrant Depression F32.9 Anxiety F41.9 History of prescription drug abuse Abnormal urinalysis R82.90 Nausea & vomiting R11.2 Hypertension I10 (1) Abdominal pain Abdominal location: right upper quadrant Qualified Code(s): R10.11 - Right upper quadrant pain (2) Cholelithiasis Biliary obstruction: without biliary obstruction Cholecystitis presence: without cholecystitis Cholelithiasis location: gallbladder Qualified Code(s): K80.20 - Calculus of gallbladder without cholecystitis without obstruction
--- NOTE | 2021-07-13 08:32 | History & Physical Bridge Note ---
Date of Service July 13, 2021 History & Physical Bridge Note I have examined the patient, reviewed the History & Physical and in the interval since the performance of the History & Physical I have noted the following changes of clinical significance: no changes noted
[2021-07-13] MEDS ORDERED: fentaNYL citrate 100 MCG/2 ML VIAL ONE ×2 (10:17→12:23)
[2021-07-13] MEDS ORDERED: MIDAZOLAM HCL 1 MG/ML 2ML VIAL ONE (10:17)
[2021-07-13] MEDS ORDERED: EPINEPHrine INJ 1 MG/ML AMP ONE (10:33)
[2021-07-13] MEDS ORDERED: BUPIVACAINE 0.25% 30 ML VIAL ONE (10:34)
--- NOTE | 2021-07-13 10:42 | Anesthesiology Consultation ---
Date of Service July 13, 2021 Assessment & Plan Chart Review Chart Review: Acceptable Risk for Surgery and Patient NOT seen in Pre Admission Testing Consults Requested none ASA ASA3 Proposed Anesthesia Anesthesia Type: General History Surgery Operation Date: 07/11/21 07:00 Proposed Procedures p Endoscopic Ultrasonography Upper - Nichole Moreno DO s Endoscopic Retrograde Cholangiopancreatogram - Nichole Moreno DO Operation Date: 07/12/21 13:00 Proposed Procedures p Laparoscopic Cholecystectomy, Possible Cholangiogram, Possible Open - Perry Groves DO Operation Date: 07/13/21 10:40 Proposed Procedures p Laparoscopic Cholecystectomy, Possible Cholangiogram, Possible Open - Perry Sherlyn Groves DO Height/Weight Height: 5 ft Weight: 74.8 kg Allergies Allergy/AdvReac Type Severity Reaction Status Date / Time Sulfa (Sulfonamide Allergy Intermediate HIVES Verified 07/10/21 18:42 Antibiotics) tramadol Allergy Intermediate GI SYMPTOMS Verified 07/10/21 18:42 Medications Home Medications Medication Instructions Recorded Confirmed Last Taken buprenorphine 8 mg-naloxone 2 mg 1 ea BUCCAL BID #1 ea 03/26/19 07/10/21 Unknown sublingual film (Suboxone) amitriptyline 10 mg tablet 10 mg PO BID #60 tab 06/01/19 07/10/21 Unknown hydroxyzine HCl 50 mg tablet 50 mg PO Q8H PRN #90 tab 06/01/19 07/10/21 Unknown buspirone 10 mg tablet 10 mg PO BID 08/12/19 07/10/21 Unknown sertraline 100 mg tablet 200 mg PO QAM tab 08/12/19 07/10/21 Unknown drospirenone 3 mg-ethinyl 1 tab PO DAILY #112 tab 10/25/20 07/10/21 Unknown estradiol 0.02 mg tablet (Britta (28)) amitriptyline 100 mg tablet 200 mg PO HS 07/10/21 07/10/21 Unknown amitriptyline 50 mg tablet 50 mg PO HS 07/10/21 07/10/21 Unknown bupropion HCl 100 mg tablet,12 hr 100 mg PO QAM 07/10/21 07/10/21 Unknown sustained-release (Wellbutrin SR) omeprazole 40 mg capsule,delayed 40 mg PO QAM 07/10/21 07/10/21 Unknown release ropinirole 1 mg tablet 1 mg PO HS 07/10/21 07/10/21 Unknown oxycodone-acetaminophen 5 mg-325 1 - 2 tab PO Q4H PRN #8 tab 07/13/21 Unknown mg tablet (Percocet) Active Medications Generic Name Dose Route Start Last Admin Trade Name Freq PRN Reason Stop Dose Admin Acetaminophen 650 mg 07/10/21 22:13 07/10/21 22:42 Acetaminophen 325 Mg Tab PO 08/09/21 22:12 650 mg Q4H PRN Administration pain/fever Acetaminophen 1,000 mg 07/11/21 10:54 07/12/21 13:09 Acetaminophen 1000 Mg/100 Ml Iv IV 07/14/21 10:53 1,000 mg Q8H PRN Administration fever or headache Amitriptyline HCl 50 mg 07/10/21 22:13 07/11/21 20:09 Amitriptyline Hcl 50 Mg Tab PO 08/09/21 22:12 50 mg HS RONNA Administration Amitriptyline HCl 200 mg 07/10/21 22:13 07/11/21 20:10 Amitriptyline Hcl 100 Mg Tab PO 08/09/21 22:12 200 mg HS RONNA Administration Amitriptyline HCl 10 mg 07/11/21 09:00 07/12/21 07:49 Amitriptyline Hcl 10 Mg Tab PO 08/10/21 08:59 10 mg BID@0900,1400 RONNA Administration Buprenorphine/Naloxone 1 tab 07/10/21 22:13 07/12/21 07:50 Buprenorphine/Naloxone 8/2 Mg Tab SL 08/09/21 22:12 1 tab BID RONNA Administration Bupropion HCl 100 mg 07/11/21 09:00 07/12/21 07:50 Bupropion Sr 100 Mg Tabcr PO 08/10/21 08:59 100 mg QAM RONNA Administration Buspirone HCl 10 mg 07/10/21 22:13 07/12/21 07:50 Buspirone 5 Mg Tab PO 08/09/21 22:12 10 mg BID RONNA Administration Piperacillin Sod/Tazobactam 115 mls @ 28.75 mls/hr 07/11/21 00:00 07/13/21 07:43 Sod 3.375 gm/ Dextrose IV 07/21/21 00:00 28.8 mls/hr Q8H RONNA Administration Protocol Pantoprazole Sodium 40 mg/ 10 mls @ 5 mls/min 09/22/21 11:00 07/12/21 11:23 Syringe IV 08/10/21 10:59 5 mls/min DAILY@1100 RONNA Administration Lactated Ringer's 1,000 mls @ 100 mls/hr 07/11/21 16:45 07/13/21 08:46 Lr IV 08/10/21 16:44 100 mls/hr .Q10H RONNA Infusion Miscellaneous 1 ea 07/12/21 08:59 07/13/21 07:43 Remove Nicoderm Patch N/A 08/11/21 08:58 1 ea DAILY@0859 RONNA Administration Morphine Sulfate 4 mg 07/12/21 22:24 07/13/21 06:37 Morphine Sulfate 4 Mg/Ml 1 Ml Carp\Vial IV 07/26/21 22:23 4 mg Q3H PRN Administration Pain (6,7,8,9,10) Nicotine 14 mg 07/11/21 10:15 07/13/21 07:45 Nicotine 14 Mg/24 Hr Patch TD 08/10/21 10:14 14 mg QAM RONNA Administration Ondansetron HCl 4 mg 07/12/21 22:35 07/12/21 23:10 Ondansetron Inj 2 Mg/Ml 2 Ml Vial IV 08/11/21 22:34 4 mg Q6H PRN Administration Nausea And Vomiting Ropinirole HCl 1 mg 07/10/21 22:13 07/11/21 20:09 Ropinirole Hcl 1 Mg Tablet PO 08/09/21 22:12 1 mg HS RONNA Administration Sertraline HCl 200 mg 07/11/21 09:00 07/12/21 07:50 Sertraline Hcl 100 Mg Tablet PO 08/10/21 08:59 200 mg QAM RONNA Administration Past Medical History Medical History Anemia Anxiety Common migraine Depression Drug addiction External hemorrhoids Opioid abuse, in remission Sleep disturbances Smoker Exercise / Class Metabolic Activity II 4-5 Yardwork/Stairs/Walk up hill Past Family History Family History Father Hypertension Sister Hypertension Denies family history of Pancreatic cancer Ovarian cancer Prostate cancer Breast cancer Colorectal cancer Uterine cancer Past Surgical History Surgical History S/P tonsillectomy Past Anesthesia History No Hx of Anesthesia Complications and No Family Hx of Anesthesia Complications History of PONV No Hx of PONV and No Hx of Motion Sickness Social History Smoking Status: Current every day smoker tobacco type: cigarettes Smoking cigarettes per day: 1/2 pack Do You Dip or Chew Tobacco: No Hx Alcohol Use: No Hx Substance Use: Yes substance use type: marijuana Substance Use Type Other:: Medical card Physical Exam Vital Signs Last Vital Signs Temp 36.8 C 07/13/21 07:23 Pulse 77 07/13/21 07:23 Resp 14 07/13/21 07:23 BP 115/73 07/13/21 07:23 Pulse Ox 97 07/13/21 07:23 Testing Laboratory Results 07/13/21 06:25 07/13/21 06:25 PT 9.7 Seconds (9.0-12.0) 07/11/21 12:01 INR 1.0 (0.9-1.1) 07/11/21 12:01 Urine Color Dark Yellow 07/10/21 17:06 Urine Appearance Cloudy (Clear) A 07/10/21 17:06 Urine pH 6.5 (4.5-7.5) 07/10/21 17:06 Ur Specific [place] 1.012 (1.000-1.030) 07/10/21 17:06 Urine Protein Negative (Negative) 07/10/21 17:06 Urine Glucose (UA) Negative (Negative) 07/10/21 17:06 Urine Ketones Negative (Negative) 07/10/21 17:06 Urine Nitrite Positive (Negative) A 07/10/21 17:06 Ur Leukocyte Esterase Trace (Negative) H 07/10/21 17:06 Urine WBC (Auto) 10-30 /hpf (0-5) H 07/10/21 17:06 Urine RBC (Auto) 0-4 /hpf (0-4) 07/10/21 17:06 U Hyaline Cast (Auto) 0 /lpf (0-5) 07/10/21 17:06 U Epithel Cells (Auto) >30 /lpf (0-5) H 07/10/21 17:06 Urine Bacteria (Auto) 1+ (Negative) H 07/10/21 17:06 07/10/21 17:06 Urine Culture - Final Urine,Clean Catch More than three types of organisms present, all high cou nts mixed probable skin magdy - No further identifications or sensitivities to follow.
[2021-07-13] MEDS ORDERED: NALOXONE HCL 0.4 MG/1 ML VIAL/CARP IV PRN (11:10)
[2021-07-13] MEDS ORDERED: PROMETHAZINE HCL 12.5 MG in SODIUM CHLORIDE 0.9% 50 ML IV PRN (11:10)
[2021-07-13] MEDS ORDERED: ATROPINE SULFATE 0.1 MG/ML 10ML SYR IV PRN ×2 (11:10→15:02)
[2021-07-13] MEDS ORDERED: FLUMAZENIL 0.1 MG/1 ML 10 ML VIAL IV PRN (11:10)
[2021-07-13] MEDS ORDERED: ONDANSETRON INJ 2 MG/ML 2 ML VIAL IV PRN (11:10)
[2021-07-13] MEDS ORDERED: ONDANSETRON INJ 2 MG/ML 2 ML VIAL ONE (11:59)
[2021-07-13] MEDS ORDERED: DEXAMETHASONE SOD INJ 4 MG/ML VIAL ONE (11:59)
[2021-07-13] MEDS ORDERED: ROCURONIUM BROMIDE 10 MG/ML 5 ML VIAL IV ONE (11:59)
[2021-07-13] MEDS ORDERED: SUGAMMADEX SODIUM 200 MG/2 ML VIAL IV ONE (11:59)
[2021-07-13] MEDS ORDERED: PROPOFOL IV EMULSION 10 MG/ML 20 ML VIAL IV ONE (11:59)
[2021-07-13] MEDS ORDERED: LIDOCAINE 2% 2 ML VIAL/AMP(20MG/ML) INFIL ONE (11:59)
[2021-07-13] MEDS ORDERED: GLYCOPYRROLATE 0.2 MG/ML VIAL ONE (12:20)
[2021-07-13] MEDS ORDERED: NEOSTIGMINE METHYLSULFATE 1 MG/ML 10ML VIAL ONE (12:20)
--- NOTE | 2021-07-13 12:49 | Post Operative Brief Note ---
PG Immediate Post Op with CF Date of Surgery July 13, 2021 Pre & Post Diagnosis Operation Date: 07/13/21 10:40 Pre-Op Diagnosis: Choledocholithiasis Post-Op Diagnosis: Choledocholithiasis I identified the patient and participated in the time-out.: Yes Procedure Operation Date: 07/13/21 10:40 Actual Procedures p Laparoscopic Cholecystectomy - Perry Groves DO Surgeon Perry Groves DO Manager Of Maintenance Barak Connelly PA-C Estimated Blood Loss 10 Findings Consistent with Post-Op Diagnosis Specimens Specimen Description: Permanent specimen: A. Gallbladder and contents Anesthesia Type General Complications none Disposition Disposition: Recovery Room
--- NOTE | 2021-07-13 12:53 | Operative Report ---
PG Post Operative Report Pre & Post Diagnosis Operation Date: 07/13/21 10:40 Pre-Op Diagnosis: Choledocholithiasis Post-Op Diagnosis: Choledocholithiasis I identified the patient and participated in the time-out.: Yes Procedure Operation Date: 07/13/21 10:40 Actual Procedures p Laparoscopic Cholecystectomy - Perry Groves DO Surgeon Perry Groves DO Cane Feeder Barak Connelly PA-C Estimated Blood Loss 10 Findings Consistent with Post-Op Diagnosis Fluids see anesthesia record Specimens Gallbladder to pathology Drains None Anesthesia Type General Complications none Disposition Disposition: Recovery Room Indications 31 yo female with choledocholithiasis Description of Procedure The patient was brought to the operating room and placed in the supine position with both arms extended. At this time she underwent general endotracheal anesthesia without any problems. She was given appropriate pre-operative antibiotics. Her abdomen prepped and draped in the usual sterile fashion. A timeout was called, the procedure was verified as Laparoscopic cholecystectomy, possible open, possible intra-operative cholangiogram. Surgical, nursing and anesthesia teams agreed and the procedure was begun. After injection of 0.25% Marcaine with epinephrine, a supraumbilical vertical incision was made and carried down to the fascia using S-retractors. The abdominal wall was then elevated with towel clamps and abdomen entered using the Veress needle confirming position using the saline drop test. Pneumoperitoneum was established. 5mm trocar was placed. Laparoscope was introduced. No injury from entry into the abdomen was visualized after inspection of the abdomen. Th ree further ports were placed under direct visualization. One 11mm in the subxiphoid region and two 5mm in the RUQ. At this time the abdomen was inspected and the gallbladder identified. The gallbladder fundus was grasped and retracted cephalad. The gallbladder infundibulum was then grasped and retracted laterally. The cystic duct and cystic artery were then identified and skeletonized. The critical view of safety was obtained. They were both then clipped twice proximally and once distally and then divided using scissors. The gallbladder was then taken off of the liver bed using electrocautery and placed in an endocatch bag and removed from the subxiphoid port. The liver bed was then inspected and no bile leak or bleeding was evident. The subxiphoid port was then closed using 0-Vicryl using the suture passer. The trocars were then removed under direct visualization and no bleeding was present. Abdomen was desufflated. The skin was then closed using 4-0 Monocryl in a subcuticular fashion. Surgical glue was applied. Needle and sponge counts were correct x 2. At this time the patient was awoken from anesthesia and extubated having remained stable throughout the entire case. The patient was then transported to PACU in stable condition. The physician professional nursing assistant was present and scrubbed throughout the entire case. He was essential in positioning, prepping and draping the patient, retraction and exposure, driving the laparoscope, closure of the incisions, placement of the dressings I attest to the content of the Intraoperative Record and any orders documented therein. Any exceptions are noted below.
[2021-07-13] MEDS: fentaNYL citrate 100 MCG/2 ML VIAL IV PRN ×4 (13:00→13:30)
[2021-07-13] MEDS ORDERED: PROMETHAZINE HCL 12.5 MG in SODIUM CHLORIDE 0.9% 50 ML IV ONE (13:30)
[2021-07-13] MEDS: HYDROmorphone INJ 0.5 MG/0.5 ML SYR IV PRN ×2 (13:54→14:00)
[2021-07-13] MEDS ORDERED: LABETALOL HCL IV 5 MG/ML 20ML IV ONE (14:31)
[2021-07-13] MEDS ORDERED: LABETALOL HCL IV 5 MG/ML 20ML IV STA (14:48)
[2021-07-13] MEDS ORDERED: DROPERIDOL 5 MG/2 ML VIAL IV STA (15:01)
[2021-07-13] MEDS ORDERED: ePHEDrine sulfate 50 MG/ML AMP IV PRN (15:02)
[2021-07-13] MEDS ORDERED: MEPERIDINE HCL 25 MG/ML CARP/VIAL IV PRN (15:02)
--- NOTE | 2021-07-13 15:22 | Electrocardiogram Report ---
Test Reason : Blood Pressure : / mmHG Vent. Rate : 084 BPM Atrial Rate : 084 BPM P-R Int : 172 ms QRS Dur : 086 ms QT Int : 376 ms P-R-T Axes : 064 073 054 degrees QTc Int : 444 ms Normal sinus rhythm Normal ECG No previous ECGs available Confirmed by Edwin Palencia ([id number]) on 07/13/2021 3:22:21 PM Referred By: REFERRED SELF Confirmed By:Edwin Palencia
--- NOTE | 2021-07-13 15:58 | Anesthesiology Progress Note ---
Date of Service July 13, 2021 Anesthesia Post Procedure Vital Signs Vital Signs: Temp Pulse Pulse Resp BP Pulse Ox 07/13/21 15:40 74 16 159/96 H 96 07/13/21 15:30 79 14 160/101 H 96 07/13/21 15:20 84 17 162/98 H 96 07/13/21 15:10 76 19 153/101 H 94 07/13/21 15:00 83 20 153/102 H 96 07/13/21 14:50 82 21 122/103 H 95 07/13/21 14:40 82 19 137/89 96 07/13/21 14:30 94 H 15 147/100 H 96 07/13/21 14:20 97 H 17 142/107 H 95 07/13/21 14:10 93 H 16 167/101 H 94 07/13/21 14:00 98 H 16 167/98 H 94 07/13/21 13:50 94 H 15 162/104 H 94 07/13/21 13:40 98 H 15 178/95 H 94 07/13/21 13:30 98 H 14 141/107 H 94 07/13/21 13:20 97 H 21 174/110 H 98 07/13/21 13:10 91 H 19 169/100 H 98 07/13/21 13:00 92 H 17 153/93 H 99 07/13/21 12:53 37.3 C 103 H 20 139/106 H 95 07/13/21 10:55 37 C 84 18 128/93 96 07/13/21 07:23 36.8 C 77 14 115/73 97 07/12/21 22:04 86 158/104 H 97 07/12/21 21:56 37.0 C 84 16 164/111 H 99 Pain Intensity Head: Pain Intensity: 2 Right Upper Abdomen: Pain Intensity: 5 Bilateral Abdomen: Pain Intensity: 7 Transfer of Care Handoff Completed per policy Notes Mental Status: alert / awake / arousable and participated in evaluation Patient Amnestic to Procedure: Yes Nausea / Vomiting: adequately controlled Pain: adequately controlled Airway Patency, RR, SpO2: stable & adequate BP & HR: stable & adequate Hydration State: stable & adequate Anesthetic Complications: no major complications apparent and Pt Satisfied with anesthetic care
[2021-07-13] MEDS: PANTOprazole 40 MG in SYRINGE 0 ML IV SCH (16:07)
[2021-07-13] MEDS ORDERED: MoRPHine SULFATE 2 MG/ML CARP IV PRN (16:25)
[2021-07-13] MEDS ORDERED: MoRPHine SULFATE 10 MG/ML CARP/VIAL IV STA (16:53)
[2021-07-13] MEDS ORDERED: cloNIDine HCL 0.1 MG TAB PO ONE (17:00)
[2021-07-13] MEDS ORDERED: hydrALAZINE HCL 20 MG/ML VIAL IV PRN (17:01)
[2021-07-13] MEDS: SCOPOLAMINE 1 MG TDSY TD SCH (17:14)
[2021-07-13 18:18] LABS: Albumin Level 3.5 gm/dl (3.4-5.0); BUN Creatinine Ratio 7.1 (10-20); Bilirubin Direct 0.3 mg/dl (0-0.2); Bilirubin,Total 0.4 mg/dl (0.2-1); Calcium 9.5 mg/dl (8.5-10.1); Creatinine Clr Calc Pharmacy 100.4 ml/min; Est GFR (Non-African American) 108.7 ml/min; Potassium 3.7 mmol/L (3.5-5.1); Total Protein 8.1 gm/dl (6.4-8.2)
[2021-07-13] MEDS: AMITRIPTYLINE HCL 100 MG TAB PO SCH (20:31)
[2021-07-13] MEDS: AMITRIPTYLINE HCL 50 MG TAB PO SCH (20:32)
[2021-07-13] MEDS: rOPINIRole HCL 1 MG TABLET PO SCH (20:33)
[2021-07-13] MEDS: busPIRone 5 MG TAB PO SCH (20:33)
[2021-07-13] MEDS: HEPARIN SOD 5,000 UNIT/0.5 ML VIAL SQ SCH (20:39)
[2021-07-13] MEDS: ONDANSETRON INJ 2 MG/ML 2 ML VIAL IV PRN (21:11)
[2021-07-13] MEDS ORDERED: PROCHLORPERAZINE 5 MG in SYRINGE 4 ML IV ONE (23:00)
[2021-07-13] MEDS: CHECK SCOPOLAMINE PATCH PLACEMENT SCH (23:21)
[2021-07-14] MEDS: MoRPHine SULFATE 4 MG/ML 1 ML CARP\\VIAL IV PRN ×5 (02:57→21:06)
[2021-07-14] MEDS: LACTATED RINGER'S 1,000 ML IV SCH ×3 (05:59→23:25)
[2021-07-14] MEDS: CHECK SCOPOLAMINE PATCH PLACEMENT SCH ×2 (07:51→16:52)
[2021-07-14] MEDS: oxyCODONE HCL IR 5 MG TAB (IMMEDIATE RELEASE) PO PRN ×2 (07:51→15:36)
[2021-07-14] MEDS: PIPERACILLIN/TAZOBACTAM 3.375 GM in DEXTROSE 5% 100 ML IV SCH ×2 (07:51→16:51)
--- NOTE | 2021-07-14 08:06 | Surgery Progress Note ---
Date of Service July 14, 2021 Assessment & Plan (1) Cholelithiasis: Plan: s/p ERCP for choledocholithiasis and lap cholecystectomy on Friday (POD1). Still with pain / nausea. Bilirubin is normal but AST/ALT/ alk phos remain elevated. Would continue current management, increase activity, advance diet as tolerated. Admission and Anticipated Discharge Date Admission Date: July 10, 2021 Subjective Still complaining of pain with IV pain med requirement. Notes bloating, some nausea yesterday but no vomiting. Walking in room to bathroom. No flatus. Physical Exam Cardiovascular: Rate/Rhythm: regular rate Heart Sounds: no murmur Gastrointestinal (Abdomen): Inspection/Auscultation: abdomen normal to inspection, + abdomen distended (tender around incisions), + abdominal surgical scar (dressings dry) and + hypoactive bowel sounds Neurologic: PERRL, EOMI, accommodation nl, no face palsy, no dysarthria Psychiatric: A+Ox3, euthymic affect Results & Data ([facility]) Vital Signs (Past 12 Hours) Vital Signs Temp Pulse Resp BP BP Pulse Ox 07/14/21 06:41 37.1 C 93 H 16 158/100 H 97 07/14/21 03:06 36.8 C 84 18 153/97 H 95 07/13/21 22:56 36.9 C 84 16 148/94 H 96 Laboratory Results Abnormal lab results 07/13/21 07/13/21 Range/Units 06:25 17:34 BUN 5 L (7-18) mg/dl BUN/Creatinine Ratio 7.1 L (10-20) Glucose 143 H (70-99) mg/dl Direct Bilirubin 0.3 H (0-0.2) mg/dl AST 111 H (15-37) U/L ALT 218 H (12-78) U/L Alkaline Phosphatase 205 H 224 H (45-117) U/L Globulin 4.2 H (2.5-4.0) gm/dl Albumin/Globulin Ratio 0.7 L (0.9-2) (1) Cholelithiasis Biliary obstruction: without biliary obstruction Cholecystitis presence: without cholecystitis Cholelithiasis location: gallbladder Qualified Code(s): K80.20 - Calculus of gallbladder without cholecystitis without obstruction
[2021-07-14] MEDS: SERTRALINE HCL 100 MG TABLET PO SCH (09:05)
[2021-07-14] MEDS: busPIRone 5 MG TAB PO SCH ×2 (09:05→21:08)
[2021-07-14] MEDS: HEPARIN SOD 5,000 UNIT/0.5 ML VIAL SQ SCH ×2 (09:06→21:09)
[2021-07-14] MEDS: AMITRIPTYLINE HCL 10 MG TAB PO SCH ×2 (09:06→13:05)
[2021-07-14] MEDS: buPROPion SR 100 MG TABCR PO SCH (09:06)
[2021-07-14 09:57] LABS: Hematocrit (blood only) 37.8 % (37-47); Hemoglobin 12.6 g/dL (12.0-16.0); Mean Corpuscular Hemoglobin 27.9 pg (25-34); Mean Corpuscular Hgb Conc 33.3 g/dL (32-36); Mean Corpuscular Volume 83.8 fL (80-100); Mean Platelet Volume 11.2 fL (7.4-10.4); Platelet Count 332 K/uL (130-400); RDW Coefficient of Variation 13.5 % (11.5-14.5); RDW Standard Deviation 41.4 fL (36.4-46.3); Red Blood Count 4.51 M/uL (4.2-5.4); White Blood Count 9.08 K/uL (4.8-10.8)
[2021-07-14] MEDS: NICOTINE 14 MG/24 HR PATCH TD SCH (10:34)
[2021-07-14] MEDS: PANTOprazole 40 MG in SYRINGE 0 ML IV SCH (10:36)
[2021-07-14] MEDS: DOCUSATE SODIUM 100 MG CAP PO SCH ×2 (10:36→21:08)
[2021-07-14 10:45] LABS: Albumin Level 3.4 gm/dl (3.4-5.0); BUN Creatinine Ratio 6.4 (10-20); Bilirubin Direct 0.3 mg/dl (0-0.2); Bilirubin,Total 0.5 mg/dl (0.2-1); Calcium 9.6 mg/dl (8.5-10.1); Creatinine Clr Calc Pharmacy 92.9 ml/min; Est GFR (African American) 114.7 ml/min; Est GFR (Non-African American) 98.9 ml/min; Potassium 3.1 mmol/L (3.5-5.1); Total Protein 7.8 gm/dl (6.4-8.2)
--- NOTE | 2021-07-14 13:40 | Hospitalist Progress Note ---
Date of Service July 14, 2021 Assessment & Plan (1) Choledocholithiasis: Plan: Cholelithiasis seen at [facility], then to go to [facility]. Signed out AMA and came here. GI eval -- pt w/ elevated LFTs concerning for passing of stones -Underwent ERCP 07/11 which showed choledocholithiasis, stone removed and stents placed. -Developed post--ERCP pancreatitis 07/12 w/ Lipase 803 and was placed on LR @ 150cc/hr, made NPO and provided pain control To continue abx course 10 days per GI for above -- currently on Zosyn (day 4) LFTs improving --> T bili 0.5 down from 1.5. AST 88 from 243 . ALT 181 from 266. ALP 195 from 243 Lipase 225 from 803 General surgery on consult POD #1 s/p lap cholecystectomy with Dr. Groves Pain management --> SIGNIFICANT PAIN IN PACU with HTN/NAUSEA --> PACU course: fentanyl 25mcg x 3, dilaudid 0.25mg x 2, phenergan 12.5mg, lab etalol 10mg, meperidine 12.5mg, droperidol 0.625mg Continues to have significant pain post-op today. ---> Continue morphine, oxycodone, and Tylenol PRN. Encourage ambulation Has not had a BM in the past few days. Colace and Miralax ordered. (2) Hypertension: Plan: Continues to have elevated BPs post-operatively. 157/103 this evening. Likely secondary to pain. Hydralazine PRN Continue to monitor. (3) Nausea & vomiting: Plan: Improved. Continue Zofran, phenergan, scopalamine patch PRN (4) Abdominal pain: Plan: As above. (5) Post-ERCP acute pancreatitis: Plan: 2nd to ERCP. Lipase and LFTs improving. Advance diet as tolerated per general surgery. (6) Cholelithiasis: Plan: As above. (7) Depression: Plan: Continue Amitriptyline, Buspirone, Bupropion, and sertraline (8) Anxiety: Plan: As above. (9) Abnormal urinalysis: Plan: (+) LE, (+) nitrite, EPI>30, bacteria 1+---> patient asymptomatic Urine cx more than 3 organisms, mixed probable magdy, FINAL (10) History of prescription drug abuse: Plan: Previous abuse in [id number] - On Suboxone at home- currently on hold while needing additional pain control to prevent limited effect but once improved would continue at same time with prn for breakthrough Also 1/2 pack/day smoker and requested nicotine patchordered. Recommend smoking cessation (11) DVT prophylaxis: Plan: SCDs, heparin subq Plan: Continued stay for pain control. Possible d/c home tomorrow if improved. Admission and Anticipated Discharge Date Admission Date: July 10, 2021 Supervising Physician Co-Signing Physician Notes Attending Attestation - Chart reviewed in detail, care plan d/w [employer]ARE[employer]SE INVENTORY CLERK Marcella Ponce. I agree w/ the valladares components of her documentation. s/p ERCP this admission with retrieval of stones/sludge with placement of CBD stent & pancreatic duct stent. No cholangitis seen. Course complicated by post-ERCP acute pancreatitis. POD #1 s/p Lap gagandeep today. Treat pain. Await bowel movement. Vitals stable. Carl Loo MD Subjective 31 year old female s/p cholecystectomy yesterday. Denies n/v. She c/o pain of the abdomen 6/10 when sitting up, 8/10 when lying down or walking. She has not been out of bed other than to walk to the bathroom d/t pain. Denies BM. Minimal flatus. Review of Systems Review of Systems: All systems reviewed & are unremarkable except as noted in Subjective Physical Exam Constitutional: + overweight; no acute distress Eyes: + anicteric sclerae ENMT: Ears: no hearing impairment Neck: normal visual inspection Respiratory: normal respiratory effort, lungs clear to auscultation Cardiovascular: RRR, no murmur, no edema Gastrointestinal (Abdomen): Inspection/Auscultation: + abdomen distended, normal bowel sounds (RUQ, RLLQ) and + hypoactive bowel sounds (LUQ, LLQ) Percussion/Palpation: + abdomen tender Musculoskeletal: Head/Neck/Chest: normocephalic Skin: no rashes, warm and dry Psychiatric: A+Ox3, euthymic affect Results & Data Results & Data ([facility]) Vital Signs (Past 12 Hours) Vital Signs Temp Pulse Pulse Resp BP Pulse Ox 07/14/21 12:00 37.1 C 97 H 20 147/97 H 97 07/14/21 11:00 36.8 C 98 H 16 151/101 H 98 07/14/21 06:41 37.1 C 93 H 16 158/100 H 97 07/14/21 03:06 36.8 C 84 18 153/97 H 95 PG Care Time/CCT Total # of Minutes Spent Total Time Spent with Patient: Total time spent is greater than 50% in coordination of care (as documented) at patient's floor/unit and/or counseling patient: C[place] [address] Subseq Hosp Care Lvl 3 Patient Type Established Diagnoses Choledocholithiasis K80.50 Hypertension I10 Nausea & vomiting R11.2 Abdominal pain R10.11 Abdominal location: right upper quadrant Post-ERCP acute pancreatitis K91.89; K85.90 Cholelithiasis K80.20 Biliary obstruction: without biliary obstruction Cholecystitis presence: without cholecystitis Cholelithiasis location: gallbladder Depression F32.9 Anxiety F41.9 Abnormal urinalysis R82.90 History of prescription drug abuse DVT prophylaxis Z29.9 (1) Abdominal pain Abdominal location: right upper quadrant Qualified Code(s): R10.11 - Right upper quadrant pain (2) Cholelithiasis Biliary obstruction: without biliary obstruction Cholecystitis presence: without cholecystitis Cholelithiasis location: gallbladder Qualified Code(s): K80.20 - Calculus of gallbladder without cholecystitis without obstruction
[2021-07-14] MEDS: POLYETHYLENE (MIRALAX) 17 GM PACK PO PRN (18:52)
[2021-07-14] MEDS: AMITRIPTYLINE HCL 50 MG TAB PO SCH (21:07)
[2021-07-14] MEDS: AMITRIPTYLINE HCL 100 MG TAB PO SCH (21:07)
[2021-07-14] MEDS: rOPINIRole HCL 1 MG TABLET PO SCH (21:09)
[2021-07-15] MEDS: PIPERACILLIN/TAZOBACTAM 3.375 GM in DEXTROSE 5% 100 ML IV SCH ×3 (00:42→16:51)
[2021-07-15] MEDS: CHECK SCOPOLAMINE PATCH PLACEMENT SCH ×3 (00:42→17:31)
[2021-07-15] MEDS: LACTATED RINGER'S 1,000 ML IV SCH ×2 (08:15→18:03)
[2021-07-15] MEDS: HEPARIN SOD 5,000 UNIT/0.5 ML VIAL SQ SCH ×2 (08:15→21:15)
[2021-07-15] MEDS: SERTRALINE HCL 100 MG TABLET PO SCH (08:15)
[2021-07-15] MEDS: DOCUSATE SODIUM 100 MG CAP PO SCH ×2 (08:15→21:17)
[2021-07-15] MEDS: NICOTINE 14 MG/24 HR PATCH TD SCH (08:15)
[2021-07-15] MEDS: busPIRone 5 MG TAB PO SCH ×2 (08:15→21:14)
[2021-07-15] MEDS: buPROPion SR 100 MG TABCR PO SCH (08:15)
[2021-07-15] MEDS: AMITRIPTYLINE HCL 10 MG TAB PO SCH ×2 (08:15→13:22)
[2021-07-15 08:18] LABS: Basophils # (auto) 0.06 K/uL (0-0.2); Basophils % (auto) 0.8 %; Eosinophils # (auto) 0.37 K/uL (0-0.5); Eosinophils % (auto) 5.1 %; Hematocrit (blood only) 35.9 % (37-47); Hemoglobin 12.2 g/dL (12.0-16.0); Immature Granulocytes # (auto) 0.01 K/uL (0.00-0.02); Immature Granulocytes % (auto) 0.1 %; Lymphocytes # (auto) 2.08 K/uL (1.2-3.4); Lymphocytes % (auto) 28.7 %; Mean Corpuscular Hemoglobin 27.7 pg (25-34); Mean Corpuscular Volume 81.4 fL (80-100); Monocytes # (auto) 0.51 K/uL (0.11-0.59); Neutrophils # (auto) 4.22 K/uL (1.4-6.5); Neutrophils % (auto) 58.3 %; Platelet Count 290 K/uL (130-400); RDW Coefficient of Variation 13.6 % (11.5-14.5); RDW Standard Deviation 40.7 fL (36.4-46.3); Red Blood Count 4.41 M/uL (4.2-5.4); White Blood Count 7.25 K/uL (4.8-10.8)
[2021-07-15] MEDS: oxyCODONE HCL IR 5 MG TAB (IMMEDIATE RELEASE) PO PRN ×3 (08:27→18:05)
[2021-07-15 08:49] LABS: Albumin Level 3.3 gm/dl (3.4-5.0); BUN Creatinine Ratio 8.2 (10-20); Calcium 9.8 mg/dl (8.5-10.1); Creatinine Clr Calc Pharmacy 117.9 ml/min; Est GFR (African American) 139.5 ml/min; Est GFR (Non-African American) 120.4 ml/min; Potassium 3.4 mmol/L (3.5-5.1)
[2021-07-15 08:51] LABS: Bilirubin Direct 0.2 mg/dl (0-0.2); Bilirubin,Total 0.5 mg/dl (0.2-1); Total Protein 7.5 gm/dl (6.4-8.2)
[2021-07-15] MEDS ORDERED: POTASSIUM CHLORIDE CRTAB 20 MEQ TABCR PO ONE (09:28)
[2021-07-15] MEDS: MoRPHine SULFATE 4 MG/ML 1 ML CARP\\VIAL IV PRN ×2 (10:20→21:23)
--- NOTE | 2021-07-15 10:22 | Surgery Progress Note ---
Date of Service July 15, 2021 Assessment & Plan (1) Cholelithiasis: Plan: s/p ERCP for choledocholithiasis and lap cholecystectomy on Friday (POD2). Still with pain requiring IV narcotics but overall is slowly improving. Bilirubin is normal but AST/ALT/ alk phos remain elevated but are slowly decreasing. On regular diet, encouraged activity and weaning of IV pain meds. Hopefully home tomorrow. Admission and Anticipated Discharge Date Admission Date: July 10, 2021 Subjective Looks better than yesterday but still complaining of pain. Bloating present but tolerating diet. Passing flatus but no bowel movement. Still needs IV morphine (last dose earlier today). Does not feel ready to be discharged. Physical Exam Respiratory: normal respiratory effort, lungs clear to auscultation Cardiovascular: Rate/Rhythm: regular rate Heart Sounds: no murmur Gastrointestinal (Abdomen): Inspection/Auscultation: abdomen normal to inspection, + abdomen distended (tender around incisions), normal bowel sounds and + abdominal surgical scar (clean and intact) Neurologic: PERRL, EOMI, accommodation nl, no face palsy, no dysarthria Psychiatric: A+Ox3, euthymic affect Results & Data ([facility]) Vital Signs (Past 12 Hours) Vital Signs Temp Pulse Resp BP Pulse Ox 07/15/21 06:55 36.7 C 91 H 16 131/88 96 07/14/21 22:46 36.8 C 100 H 16 137/93 92 Laboratory Results 07/15/21 07/15/21 07/14/21 Range/Units 08:00 08:00 09:22 WBC 7.25 (4.8-10.8) K/uL RBC 4.41 (4.2-5.4) M/uL Hgb 12.2 (12.0-16.0) g/dL Hct 35.9 L (37-47) % MCV 81.4 (80-100) fL MCH 27.7 (25-34) pg MCHC 34.0 (32-36) g/dL RDW Std Deviation 40.7 (36.4-46.3) fL RDW Coeff of Kinza 13.6 (11.5-14.5) % Plt Count 290 (130-400) K/uL MPV 11.0 H (7.4-10.4) fL Immature Gran % (Auto) 0.1 % Neut % (Auto) 58.3 % Lymph % (Auto) 28.7 % Garfield % (Auto) 7.0 % Eos % (Auto) 5.1 % Baso % (Auto) 0.8 % Neut # (Auto) 4.22 (1.4-6.5) K/uL Lymph # (Auto) 2.08 (1.2-3.4) K/uL Garfield # (Auto) 0.51 (0.11-0.59) K/uL Eos # (Auto) 0.37 (0-0.5) K/uL Baso # (Auto) 0.06 (0-0.2) K/uL Immature Gran # (Auto) 0.01 (0.00-0.02) K/uL Sodium 137 137 (136-145) mmol/L Potassium 3.4 L 3.1 L D (3.5-5.1) mmol/L Chloride 105 102 (98-107) mmol/L Carbon Dioxide 27 26 (21-32) mmol/L Anion Gap 5.0 9.0 (3-11) BUN 5 L 5 L (7-18) mg/dl Creatinine 0.63 0.80 (0.6-1.2) mg/dl Est Cr Clr Drug Dosing 117.9 92.9 ml/min Est GFR ( Amer) 139.5 114.7 ml/min Est GFR (Non-Af Amer) 120.4 98.9 ml/min BUN/Creatinine Ratio 8.2 L 6.4 L (10-20) Glucose 107 H 158 H (70-99) mg/dl Calcium 9.8 9.6 (8.5-10.1) mg/dl Total Bilirubin 0.5 0.5 (0.2-1) mg/dl Direct Bilirubin 0.2 0.3 H (0-0.2) mg/dl AST 69 H 88 H (15-37) U/L ALT 150 H 181 H (12-78) U/L Alkaline Phosphatase 178 H 195 H (45-117) U/L Total Protein 7.5 7.8 (6.4-8.2) gm/dl Albumin 3.3 L 3.4 (3.4-5.0) gm/dl Lipase 126 (73-393) U/L (1) Cholelithiasis Biliary obstruction: without biliary obstruction Cholecystitis presence: without cholecystitis Cholelithiasis location: gallbladder Qualified Code(s): K80.20 - Calculus of gallbladder without cholecystitis without obstruction
[2021-07-15] MEDS: POLYETHYLENE (MIRALAX) 17 GM PACK PO PRN (10:32)
[2021-07-15] MEDS: PANTOprazole 40 MG TAB PO SCH (11:05)
--- NOTE | 2021-07-15 12:19 | Hospitalist Progress Note ---
Date of Service July 15, 2021 Assessment & Plan (1) Choledocholithiasis: Plan: Cholelithiasis seen at [facility], then to go to [facility]. Signed out AMA and came here. GI eval -- pt w/ elevated LFTs concerning for passing of stones -Underwent ERCP 07/11 which showed choledocholithiasis, stone removed and stents placed. -Developed post--ERCP pancreatitis 07/12 -Underwent cholecystectomy on 07/[address] Groves--POD #2 - Significant post-op pain. Improved today. Continue morphine, oxycodone, and Tylenol PRN. Will need to resume Suboxone on discharge. - LFTs improving. - To continue abx course 10 days per GI for above -- currently on Zosyn (day 5) - No post-op BM yet. Colace and Miralax ordered. (2) Hypertension: Plan: Elevated BPs post-operatively likely r/t significant pain. Now improved to 131/88 this AM. Hydralazine PRN Continue to monitor. (3) Nausea & vomiting: Plan: Resolved. Advancing diet. Continue Zofran, phenergan, scopalamine patch PRN (4) Abdominal pain: Plan: Improving. As above. (5) Post-ERCP acute pancreatitis: Plan: 2nd to ERCP. Lipase and LFTs improving. Advance diet as tolerated per general surgery. (6) Cholelithiasis: Plan: As above. (7) Depression: Plan: Continue Amitriptyline, Buspirone, Bupropion, and sertraline (8) Anxiety: Plan: As above. (9) Abnormal urinalysis: Plan: (+) LE, (+) nitrite, EPI>30, bacteria 1+---> patient asymptomatic Urine cx more than 3 organisms, mixed probable magdy, FINAL (10) History of prescription drug abuse: Plan: Previous abuse in [id number] - On Suboxone at home- currently on hold while needing additional pain control to prevent limited effect but once improved would continue at same time with prn for breakthrough Also 1/2 pack/day smoker and requested nicotine patchordered. Recommend smoking cessation (11) DVT prophylaxis: Plan: SCDs, heparin subq Plan: Continued stay for pain control. Hopeful for d/c home tomorrow per general surgery. Admission and Anticipated Discharge Date Admission Date: July 10, 2021 Supervising Physician Co-Signing Physician Notes Attending Attestation - Chart reviewed in detail, care plan d/w [employer] OPERATOR Marcella Kris. I agree w/ the valladares components of her documentation. s/p ERCP this admission with retrieval of stones/sludge with placement of CBD stent & pancreatic duct stent. No cholangitis seen. Course complicated by post-ERCP acute pancreatitis. POD #2 s/p Lap gagandeep. d/c home tomorrow. Carl Loo MD Subjective Patient reports pain has improved. Pain is worse when lying back and with activity. She ate cereal for breakfast without issue. Denies n/v. No BM. She is drinking Miralax during our visit today. Physical Exam Physical Exam: Temp Pulse Resp BP Pulse Ox 36.7 C 91 H 16 131/88 96 07/15/21 06:55 07/15/21 06:55 07/15/21 06:55 07/15/21 06:55 07/15/21 06:55 Patient is afebrile. Vital signs stable. Constitutional: + overweight; no acute distress Eyes: + anicteric sclerae ENMT: Ears: no hearing impairment Neck: normal visual inspection Respiratory: normal respiratory effort, lungs clear to auscultation Cardiovascular: RRR, no murmur, no edema Gastrointestinal (Abdomen): Inspection/Auscultation: + abdomen distended and normal bowel sounds Percussion/Palpation: + abdomen tender Musculoskeletal: Head/Neck/Chest: normocephalic Skin: no rashes, warm and dry Psychiatric: A+Ox3, euthymic affect Results & Data Results & Data ([facility]) Vital Signs (Past 12 Hours) Vital Signs Temp Pulse Resp BP Pulse Ox 07/15/21 06:55 36.7 C 91 H 16 131/88 96 PG Care Time/CCT Total # of Minutes Spent Total Time Spent with Patient: Total time spent is greater than 50% in coordination of care (as documented) at patient's floor/unit and/or counseling patient: Coding Level of Care Code 70244 Subseq Hosp Care Lvl 2 Medical Decision Making Moderate Complexity Diagnoses Choledocholithiasis K80.50 Hypertension I10 Nausea & vomiting R11.2 Abdominal pain R10.11 Abdominal location: right upper quadrant Post-ERCP acute pancreatitis K91.89; K85.90 Cholelithiasis K80.20 Biliary obstruction: without biliary obstruction Cholecystitis presence: without cholecystitis Cholelithiasis location: gallbladder Depression F32.9 Anxiety F41.9 Abnormal urinalysis R82.90 History of prescription drug abuse DVT prophylaxis Z29.9 (1) Abdominal pain Abdominal location: right upper quadrant Qualified Code(s): R10.11 - Right upper quadrant pain (2) Cholelithiasis Biliary obstruction: without biliary obstruction Cholecystitis presence: without cholecystitis Cholelithiasis location: gallbladder Qualified Code(s): K80.20 - Calculus of gallbladder without cholecystitis without obstruction
[2021-07-15] MEDS: AMITRIPTYLINE HCL 50 MG TAB PO SCH (21:13)
[2021-07-15] MEDS: AMITRIPTYLINE HCL 100 MG TAB PO SCH (21:14)
[2021-07-15] MEDS: rOPINIRole HCL 1 MG TABLET PO SCH (21:15)
[2021-07-16] MEDS: CHECK SCOPOLAMINE PATCH PLACEMENT SCH ×2 (00:24→08:24)
[2021-07-16] MEDS: oxyCODONE HCL IR 5 MG TAB (IMMEDIATE RELEASE) PO PRN ×3 (00:24→13:53)
[2021-07-16] MEDS: PIPERACILLIN/TAZOBACTAM 3.375 GM in DEXTROSE 5% 100 ML IV SCH ×2 (00:24→08:21)
[2021-07-16] MEDS: LACTATED RINGER'S 1,000 ML IV SCH (04:08)
[2021-07-16] MEDS: busPIRone 5 MG TAB PO SCH (08:22)
[2021-07-16] MEDS: PANTOprazole 40 MG TAB PO SCH (08:22)
[2021-07-16] MEDS: AMITRIPTYLINE HCL 10 MG TAB PO SCH ×2 (08:22→13:52)
[2021-07-16] MEDS: SERTRALINE HCL 100 MG TABLET PO SCH (08:22)
[2021-07-16] MEDS: buPROPion SR 100 MG TABCR PO SCH (08:23)
[2021-07-16] MEDS: NICOTINE 14 MG/24 HR PATCH TD SCH (08:23)
[2021-07-16] MEDS: SCOPOLAMINE 1 MG TDSY TD SCH (08:23)
[2021-07-16] MEDS: HEPARIN SOD 5,000 UNIT/0.5 ML VIAL SQ SCH (08:24)
[2021-07-16] MEDS: DOCUSATE SODIUM 100 MG CAP PO SCH (08:31)
[2021-07-16 09:37] LABS: Bilirubin Direct 0.2 mg/dl (0-0.2); Bilirubin,Total 0.4 mg/dl (0.2-1); Calcium 9.5 mg/dl (8.5-10.1); Creatinine Clr Calc Pharmacy 92.9 ml/min; Est GFR (African American) 114.7 ml/min; Est GFR (Non-African American) 98.9 ml/min; Potassium 3.7 mmol/L (3.5-5.1)
[2021-07-16 09:38] LABS: Total Protein 7.2 gm/dl (6.4-8.2)
--- NOTE | 2021-07-16 09:52 | Surgery Progress Note ---
Date of Service July 16, 2021 Assessment & Plan (1) Post-ERCP acute pancreatitis: Plan: POD 3 lap gagandeep improved seen with Dr. Germain patel for discharge (2) Choledocholithiasis: Admission and Anticipated Discharge Date Admission Date: July 10, 2021 Subjective tolerating diet, pain control better Physical Exam Gastrointestinal (Abdomen): Inspection/Auscultation: + abdominal surgical incision (clean, dry); abdomen not distended [facility] Vital Signs (Past 12 Hours) Vital Signs Temp Pulse Pulse Resp BP Pulse Ox 07/16/21 07:11 36.9 C 88 14 114/78 96 07/15/21 23:30 36.8 C 97 H 16 108/71 95 PG Care Time/CCT Total # of Minutes Spent Total Time Spent with Patient: Total time spent is greater than 50% in coordination of care (as documented) at patient's floor/unit and/or counseling patient: Coding Level of Care Code None Diagnoses Post-ERCP acute pancreatitis K91.89; K85.90 Choledocholithiasis K80.50
--- NOTE | 2021-07-16 16:20 | Discharge Summary ---
Date of Service July 16, 2021 Admission HPI Per Admitting Provider 31 YOF with past medical history of: Anxiety, opioid/Benzodiazepine abuse- on Suboxone, GERD, migraine, control, smoker. Patient with 2 day history of abdominal pain. The pain is located on her right upper quadrant, acute sharp stabbing in nature, associated with nausea without vomiting and preceded by diarrhea. Pain and nausea got worse this morning as she tried to eat a muffin. Patient went to [facility] for evaluation where she had some labs done, which was concerning for acute cholelithiasis. She had an ultrasound performed- with cholelithiasis noted, followed by MRI/MRCP. The MRI and MRCP interpreted as distended gallbladder with CBD measuring 4-6mm, and without evidence of choledocholithiasis or ductal dilation. Noted cholelithiasis without MRI evidence for an acute inflammatory process. Patient was to be transferred to [facility] and left AMA to come here for evaluation. In the [facility] the patient had routine labs to include lipase and repeated ultrasound, interpreted as Chol elithiasis. No sonographic evidence of acute cholecystitis. Her CMP revealed elevated LFTs, ALKpo4,Bili 2.1, and lipase of 68. General Surgery was consulted by the [facility] provider who recommended NPO, antibiotics, admission to the hospital via the hospital medicine service and GI consult. Patient will be kept NPO except for medications, placed on Zosyn IV, LR overnight x1 liter. Patient COVID test on admission is: NEGATIVE Principal Diagnosis 1. Acute cholecystitiss/p cholecystectomy 2. Acute choledocholithiasiss/p ERCP 3. Post ERCP pancreatitisresolved 4. Chronic opioid abuse Discharge Exam General: Resting comfortably in her hospital bed. Appears comfortable. NAD. HEENT: Head is AT/NC buccal mucosa is moist and pink Neck: No JVD. Negative hepatojugular reflex Cardiac: RRR without M/G/R Lungs: CTA without W/R/R Abdomen: Normoactive X4. Several incisions on abdomen with tape over top. Dry. Abdomen is soft and nontender Extremities: No peripheral clubbing cyanosis or edema Neuro: A&O X4 cranial nerves II through XII are grossly intact no focal neuro deficits Skin: No obvious skin lesions or rashes Psych: Appropriate affect pleasant and cooperative Discharge Data Allergies Allergy/AdvReac Type Severity Reaction Status Date / Time Sulfa (Sulfonamide Allergy Intermediate HIVES Verified 07/10/21 18:42 Antibiotics) tramadol Allergy Intermediate GI SYMPTOMS Verified 07/10/21 18:42 Consultations 07/10/21 19:18 surgical consult: 07/10/21: (1) Cholelithiasis: Plan: -Her LFT's are trending down, so she likely passed a stone -Will await GI input about need for ERCP -If no ERCP today, can have clears until MN -Will tentatively plan on laparoscopic cholecystectomy, possible open tomorrow -Consent obtained, risks discussed including bleeding, infection, bile leak, ductal injury (2) Abnormal LFTs: 07/16/21 Assessment & Plan (1) Post-ERCP acute pancreatitis: Plan: POD 3 lap gagandeep improved seen with Dr. Germain patel for discharge (2) Choledocholithiasis: 07/10/21 22:13 Consult Gastroenterology Routine s/p EUS and ERCP Procedures Performed Operation Date: 07/11/21 07:00 Actual Procedures p Endoscopic Ultrasonography Upper, (Not Applicable) - DO caren Cervantes Endoscopic Retrograde Cholangiopancreatography(Not Applicable) - DO caren Cervantes Esophagogastroduodenoscopy(Not Applicable) - Nichole Moreno DO Operation Date: 07/12/21 13:00 <No data on this case meets the specified criteria> Operation Date: 07/13/21 10:40 Actual Procedures p Laparoscopic Cholecystectomy - Perry Groves DO Ordered Studies 07/10/21 16:38 US gallbladder Stat IMPRESSION: 1. Cholelithiasis. No sonographic evidence of acute cholecystitis. 2. No biliary ductal dilatation. 07/11/21 11:25 US upper EUS PACS images Routine Impression: - One stone was visualized endosonographically in the common bile duct. - There was dilation in the common bile duct which measured up to 6 mm. - Multiple stones were visualized endosonographically in the gallbladder. - There was dilation in the gallbladder which measured up to 40 mm. - There was no evidence of significant pathology in the visualized portion of the liver. - There was no sign of significant pathology in the entire pancreas. - No specimens collected. Recommendation: - Perform an ERCP today. 07/11/21 14:00 FL ERCP biliary ductal Routine Impression: - The major papilla appeared to be small. - Biliary papillary stenosis, benign. - Choledocholithiasis was found. Complete removal was accomplished by biliary sphincterotomy and balloon extraction. - A biliary sphincterotomy was performed. - One prophylactic pancreatic stent was placed into the ventral pancreatic duct. - Indomethacin given to decrease risk of post-ERCP pancreatitis. Recommendation: - Avoid aspirin and nonsteroidal anti-inflammatory medicines for 1 week. - NPO today. - Use broad spectrum antibiotics for 10 days. - Repeat ERCP in 6 weeks to remove stent. - Cholecystectomy per General surgery. Hospital Course (1) Choledocholithiasis: Cholelithiasis seen at [facility], then to go to [facility]. Signed out AMA and came here GI eval -- pt w/ elevated LFTs concerning for passing of stones Underwent ERCP 07/11 which showed choledocholithiasis, stone removed and pancreatic duct stent placed Avoid NSAIDs x 1 week Developed post--ERCP pancreatitis 07/12 w/ Lipase 803 which postpone cholecystectomy Pancreatitis responded to conservative management (n.p.o. diet, IV hydration) Patient was placed on IV Zosyn for acute cholecystitis. (A full 10-day course of antibiotic therapy recommended per GI. To complete 5 additional days. Will transition to Augmentin.) With improving pancreatitis, patient was taken to the OR on 07/13 for cholecystectomy total bilirubin normalized (2.1--> 0.4) AST/ALT downtrending (365/297--> 107/156) lipse normoaized 803--> 126 At this point time, medically and hemodynamically stable for discharge to home with continued antibiotic therapy as outlined above Was planning on avoiding opioid therapy given history of opioid abuse currently on Suboxone. Suboxone should provide adequate pain control. Patient was given an Rx by general surgery for Percocet to take as needed. Lengthy discussion with patient regarding risk of relapse with this. She voices understanding. Do not take this with Suboxone. (2) Hypertension: Accelerated BP noticed while in house. Improved following cholecystectomy and adequate pain control (3) Nausea & vomiting: Resolved s/p ERCP and cholecystectomy (4) Post-ERCP acute pancreatitis: -As outlined above, lipase 803 to 126. Symptoms improved with conservative management (5) Cholelithiasis: as above. (6) Depression: Continue Amitriptyline, Buspirone, Bupropion, and sertraline --> HELD WHILE NPO FOR TODAY, RESUMED POST-OP (7) Anxiety: As above (8) History of prescription drug abuse: Previous abuse in [id number] -Percocet ordered by general surgery postoperatively. Lengthy discussion with patient regarding risk of relapse. She voices understanding. See above as outlined -DC to home with continued antibiotic therapy -Follow-up with GI. Will need stent removed in 6 weeks -Follow-up with general surgery in 2 weeks -Return to ED for any new or worsening symptoms Total Time Total Time Spent Total Time Spent (In Minutes): 35 Discharge Plan Discharge Items Patient Disposition: Home - Self-Care Reason For Visit: ABDOMINAL PAIN Discharge Diagnosis: 1. Acute Choledocholithiasis s/p ERCP with stone removal and pancreatic duct stent 2. Post-ERCP pancreatitis- resolved 3. Acute Cholecystitis- s/p cholecystectomy Condition on Discharge: Good Activity: As commented below Lifting: No more than 10 pounds Bathing Comment: ok to shower, remove bandages on Friday, leave steri-strips on until appt Driving/Machine Use: when pain free Non-emergency contact: Surgeon Call non-emergency contact if: you have any medication questions, your pain is not controlled, you have a fever and your temperature is above 101.5 Follow-up/Referrals: Perry Groves DO [Physician] - 07/26/21 9:20 am (Please call to make an appt in 2 weeks) Nichole Moreno DO [Physician] - PCP,NO [Physician] - Diet: Low Fat Diet Comment: low fat diet for a few days Addtl Attending Provider Instructions: - Do not take Suboxone while taking Percocet - Suboxone should be adequate for pain control. - complete full course of antibiotic therapy - General Surgery has prescribed Percocet which should not be used in combination with your Suboxone and should only be used for SEVERE PAIN as it is habit forming and may cause you to relapse. BE CAUTIOUS WITH THIS! - follow up with GI and General Surgery as outlined - Stent (pancreatic duct) will bee removed in 6 weeks (per GI) - Return to the ED for new or worsening symptoms Pending Studies at Discharge: No Stand-Alone Forms: My [employer], Opioid Pain Management, Smoking Cessation Medications and DC Order Prescriptions: New oxycodone-acetaminophen [Percocet] 5-325 mg tablet 1 - 2 tab PO Q4H PRN (Reason: pain, initial therapy, max 6 daily) Qty: 8 RF: 0 amoxicillin-pot clavulanate [Augmentin] 875-125 mg tablet 1 tab PO BID Qty: 10 RF: 0 Continued buprenorphine-naloxone [Suboxone] 8-2 mg film 1 ea BUCCAL BID Qty: 1 RF: 0 amitriptyline 10 mg tablet 10 mg PO BID Qty: 60 RF: 2 hydroxyzine HCl 50 mg tablet 50 mg PO Q8H PRN (Reason: anxiety) Qty: 90 RF: 2 drospirenone-ethinyl estradiol [Britta (28)] 3-0.02 mg tablet 1 tab PO DAILY Qty: 112 RF: 3 buspirone 10 mg tablet 10 mg PO BID RF: 0 sertraline 100 mg tablet 200 mg PO QAM RF: 0 ropinirole 1 mg tablet 1 mg PO HS RF: 0 omeprazole 40 mg capsule,delayed release(DR/EC) 40 mg PO QAM RF: 0 amitriptyline 50 mg tablet 50 mg PO HS RF: 0 bupropion HCl [Wellbutrin SR] 100 mg tablet sustained-release 12 hr 100 mg PO QAM RF: 0 amitriptyline 100 mg tablet 200 mg PO HS RF: 0 Discharge Orders: Discharge Order (Routine); Ordered 07/16/21 Ordered By: Beronica Peraza/Other Patient Handouts: Cholecystectomy Laparoscopic Dc Admission Data Admit Date/Time: 07/10/21 20:10 Attending Provider: Odin Peace Admit Provider: Maisha Osman Primary Care Provider: Shashi Carpenter V. Other Providers: Perry Groves ; Nichole Moreno ; Odin Peace Other Interventions: Discharge Summary Assessment (RN) Last Done: 07/16/21 13:48 Supervising Physician Co-Signing Physician Notes I supervised Beronica Saldana PA-C on the care of this patient. I interviewed and examined the patient independently of her. The plan is as written in her note except for any following changes/exceptions: None Feels well today. Pain controlled. Tolerating diet. Ready for discharge. Coding Level of Care Code Established Pt D/C DAY MANAGEMENT >30 MINS Patient Type Established Diagnoses Choledocholithiasis K80.50 Hypertension I10 Nausea & vomiting R11.2 Post-ERCP acute pancreatitis K91.89; K85.90 Cholelithiasis K80.20 Biliary obstruction: without biliary obstruction Cholecystitis presence: without cholecystitis Cholelithiasis location: gallbladder Depression F32.9 Anxiety F41.9 History of prescription drug abuse Time Spent (min) 35
== END 2021-07-16 14:34 | disposition home or self-care (01) | DRG 417 ==
LOC: ED 14:52 → 3N 20:10 → SUATTDRO 20:10 → 3N 21:51